=== PATIENT | male | born 1945 | race Caucasian/White ===

== ENCOUNTER 2020-12-28 08:55 | Inpatient (IN) | payer MEDICARE, SELFPAY ==
[2020-12-28] VITALS (12 sets, daily range): BP systolic 129–154; BP diastolic 68–92; PULSE 73–99; RESP 15–22; TEMP 36.3–36.6; O2SAT 93–100; BMI 39.2
--- NOTE | ~2020-12-28 | US_ITS ---
EXAMINATION: US joint non vasc ltd LT DATE: 12/28/2020 11:35 INDICATION: Left lower limb focal swelling. TECHNIQUE: Multiple grayscale and Doppler ultrasound images of the left lower limb were obtained. COMPARISON: Left ankle radiograph 12/28/2020 FINDINGS: There is no visible left ankle joint effusion. IMPRESSION: 1. No visible left ankle joint effusion. Reviewed, dictated and finalized at location A.
--- NOTE | ~2020-12-28 | US_ITS ---
EXAMINATION: US venous doppler [facility] EXAM DATE: 12/28/2020 11:35 INDICATION: Left lower extremity edema, erythema. TECHNIQUE: Multiple grayscale, color flow and Doppler images of the left lower extremity deep venous system were obtained and reviewed. There is no prior study for comparison. FINDINGS: The left common femoral, femoral and profunda veins demonstrate normal color flow, respirat ory variation, augmentation and compressibility. Compressibility, color flow confirmed within the le ft popliteal, posterior tibial, peroneal, and greater saphenous veins. IMPRESSION: No left lower extremity deep venous thrombosis. Reviewed, dictated and finalized at location A.
--- NOTE | ~2020-12-28 | XR_ITS ---
EXAMINATION: XR ankle LT min 3V DATE: 12/28/2020 09:59 INDICATION: Left ankle pain and swelling TECHNIQUE: Anteroposterior, lateral, mortise, and additional oblique view of the ankle were obtained. COMPARISON: None. FINDINGS: There is soft tissue swelling of ankle. Heterotopic ossification near the medial malleolus likely represents old fracture. No acute fracture is identified. Bone alignment is normal. Calcified atherosclerosis is noted. There are dorsal and plantar enthesophytes. IMPRESSION: 1. Soft tissue swelling without acute osseous abnormality. Reviewed, dictated and finalized at location B.
--- NOTE | ~2020-12-28 | MR_ITS ---
EXAMINATION: MR ankle LT wo con DATE: 12/29/2020 12:16 INDICATION: Left ankle edema and erythema. TECHNIQUE: Magnetic resonance imaging (MRI) of the left ankle was performed without intravenous contr ast. Sequences included sagittal PD-weighted FS FSE, sagittal PD-weighted FSE, coronal PD-weighted FS FSE, coronal PD-weighted FSE, axial PD-weighted FS FSE, and axial PD-weighted FSE. COMPARISON: Left ankle radiographs 12/28/2020 FINDINGS: Medial ankle ligaments: There are changes of prior sprain of superficial component of the deltoid ligament characterized by t hickening and increased signal intensity. The deep component of the deltoid ligament is intact. There is heterotopic ossification at the deltoid ligament. Lateral ankle ligaments: There are changes of prior sprains of anterior talofibular ligament and anterior tibiofibular ligamen t characterized by thickening and increased signal intensity and posterior tibiofibular ligament amberly acterized by some disorganized fibers with increased signal. Calcaneofibular ligament and posterior t alofibular ligament are intact. Tendons: The medial ankle tendons are normal. There is mild tendinopathy of the tibialis posterior and tibiali s anterior. There is mild tendinopathy of peroneus longus. There is mild Achilles tendinopathy. There is an enthesophyte at the calcaneal attachment of Achilles tendon. Plantar fascia:There is thickening and increased signal involving the central and lateral bands of pl west fascia, consistent with fasciitis. There is an enthesophyte at the calcaneal attachment. Bones/other: Bone alignment is normal. No fracture. There is mild osteoarthritis of many of the midfoot joints. Th ere is mild tibiotalar joint chondrosis. Fluid: There is small ankle and subtalar joint effusions. There is a small talonavicular joint effusion. The re is widespread edema of the soft tissues. There is mild fatty atrophy of many of the muscle bellies . There is widespread increased PD-weighted signal intensity in the muscle bellies, likely subacute d enervation. IMPRESSION: 1. Mild polyarticular osteoarthritis. 2. Plantar fasciitis. 3. Mild tendinopathy of multiple tendons. 4. Small effusions of the ankle joint, subtalar joint, and talonavicular joint. Reviewed, dictated and finalized at location A.
--- NOTE | ~2020-12-28 | XR_ITS ---
EXAMINATION: XR foot LT min 3V DATE: 12/29/2020 15:18 INDICATION: Left foot pain. TECHNIQUE: 4 views of left foot were obtained. COMPARISON: None. FINDINGS: Bone alignment is normal. No fracture. There is mild osteoarthritis of first metatarsophala ngeal joint and some of the interphalangeal joints and midfoot joints. There is moderate osteoarthrit is of second distal interphalangeal joint. There are enthesophytes at the posterior and plantar aspec ts of calcaneal tuberosity. IMPRESSION: 1. Polyarticular osteoarthritis. Reviewed, dictated and finalized at location A.
--- NOTE | 2020-12-28 09:30 | ED.EXTPRO ---
HPI - Extremity Problem General Chief complaint: Extremity Problem,Nontraumatic <TREV Raygoza Last Filed: 12/28/20 12:09> Stated complaint: L ankle pain <TREV Raygoza Last Filed: 12/28/20 12:09> Time Seen by Provider: 12/28/20 09:09 <TREV Raygoza Last Filed: 12/28/20 12:09> Source: patient <TREV Raygoza Last Filed: 12/28/20 12:09> Mode of arrival: wheelchair <TREV Raygoza Last Filed: 12/28/20 12:09> Limitations: no limitations <TREV Raygoza Last Filed: 12/28/20 12:09> History of Present Illness HPI Narrative: This is a 75 old male that presents the emergency department for left ankle redness and swelling x2 days. No known injury or trauma. Reports pain especially with ambulating. Denies fever, decreased range of motion, or numbness. <TREV Raygoza Last Filed: 12/28/20 12:09> Related Data Home medications: Home Medications Medication Instructions Recorded Confirmed insulin needles (disposable) 30 X #1 09/22/20 09/22/20 3/4 rivaroxaban 20 mg tablet 20 mg PO QPM tablet 09/22/20 12/28/20 insulin detemir U-100 100 unit/mL See Rx Instructions .ROUTE .COMPLEX 09/29/20 12/28/20 (3 mL) subcutaneous pen <TREV Raygoza Last Filed: 12/28/20 12:09> Allergies/Adverse reactions: Allergies Allergy/AdvReac Type Severity Reaction Status Date / Time venom-honey bee Allergy Intermediate Swelling Verified 12/28/20 13:50 <TREV Raygoza Last Filed: 12/28/20 12:09> Review of Systems Review of Systems: Narrative: CONSTITUTIONAL: Denies fever SKIN: Reports redness MUSCULOSKELETAL: Reports joint pain, and myalgia. NEUROLOGIC: Denies numbness <TREV Raygoza Last Filed: 12/28/20 12:09> All systems reviewed & are unremarkable except as noted in HPI and below <Serina Klein PA-C - Last Filed: 12/28/20 12:09> PMFSH Past Medical History Medical History: Medical History (Updated 12/28/20 @ 15:13 by Isabel Vang PA-C) Cataracts, bilateral Chronic anticoagulation Patient takes rivaroxaban for stroke prophylaxis given persistent atrial fibrillation. Diabetic peripheral neuropathy Essential hypertension Hernia (~1989) Hyperlipidemia Insulin dependent type 2 diabetes mellitus Hemoglobin A1c was 7.7% on 12/28/2020. Kidney stone (~1976) Persistent atrial fibrillation Psoriasis <Serina Klein PA-C - Last Filed: 12/28/20 12:09> Surgical History Surgical History: Surgical History (Updated 12/28/20 @ 15:13 by Isabel Vang PA-C) H/O eye surgery (~2016) History of loop recorder <Serina Klein PA-C - Last Filed: 12/28/20 12:09> Family History Family History: Family History (Updated 12/28/20 @ 14:14 by Celi Pereira RN) Father , 70 -- Diabetes cause of Diabetes mellitus Mother , 35 -- hemmorage Brain bleed <Serina Klein PA-C - Last Filed: 12/28/20 12:09> Social History Social History: Social History Social History: Surrogate decision maker: Olivia Jewell, spouse. Code status: Full code. Smoking status: Never smoker Alcohol intake: never Substance use: never Substance use type: does not use Additional living arrangements comments: The patient lives in [place] with his . Additional occupation/education comments: Retired. Gender identity (if verbalized by the patient): Male Spiritual care concerns: No <Serina Klein PA-C - Last Filed: 12/28/20 12:09> Exam Narrative: Exam Narrative: GENERAL: Well-appearing, well-nourished, and in no acute distress. HEAD: Normocephalic, atraumatic. EYES: EOMI. EXTREMITIES: Normal range of motion. Mild to moderate edema about the left ankle with overlying redness. Normal DP pulses, normal sensation SKIN: Warm, dry, no rash. NEURO: No focal defici
[2020-12-28 09:51] LABS: Basophils Percent Auto 0.3 % (0.2-1.2); Eosinophils Absolute Auto 0.1 K/mm3 (0-0.3); Eosinophils Percent Auto 0.5 % (0-4.4); Hematocrit 41.8 % (42.0-52.0); Hemoglobin 14.4 g/dL (14.0-18.0); Immature Granulocyte Absolute 0.05 K/mm3 (0.00-0.031); Immature Granulocyte Percent A 0.4 % (0-0.5); Lymphocytes Absolute Auto 2.28 K/mm3 (0.9-3.2); Mean Corpuscular HGB Conc 34.4 g/dl (32-36); Mean Corpuscular Hemoglobin 31.6 pg (26-34); Mean Corpuscular Volume 91.9 fl (80-100); Mean Platelet Volume 9.9 fl (7.4-10.4); Monocytes Absolute Auto 1.1 K/mm3 (0.1-0.6); Monocytes Percent Auto 9.2 % (2.6-8.5); Neutrophils Absolute Auto 8.5 K/mm3 (1.3-6.7); Neutrophils Percent Auto 70.6 % (45.5-73.1); Platelet Count Result 242 k/mm3 (150-375); Red Blood Count 4.55 M/mm3 (4.6-6.20); Red Cell Distribution Width 13.9 % (11.5-14.5)
[2020-12-28 10:04] LABS: Anion Gap 8 mmol/L (8-16); Blood Urea Nitrogen 15 mg/dL (9-20); CRP 7.6 mg/dL (<1.0); Calcium 9.8 mg/dL (8.4-10.2); Carbon Dioxide 29 mmol/L (22-30); Chloride 98 mmol/L (98-107); Estimated CRCL calculation 72 ml/min; Estimated Glomerular Filt Rate > 60; Glucose 160 mg/dL (75-110); Potassium 3.6 mmol/L (3.4-5.0); Sodium 135 mmol/L (137-145); Uric Acid 5.1 mg/dL (3.5-8.5)
[2020-12-28 10:27] LABS: Hemoglobin A1C 7.7 % (<5.7)
[2020-12-28 11:14] LABS: Erythrocyte Sedimentation Rate 40 mm/hr (0-20)
--- NOTE | 2020-12-28 12:27 | PC.NURSE ---
Lab notified @1200 for add-on PT INR PTT
[2020-12-28 12:55] LABS: INR 1.5; Prothrombin Time 18.8 Seconds (11.1-14.7)
[2020-12-28 12:56] LABS: Partial Thromboplastin Time 40.7 SECONDS (22.3-36.8)
--- NOTE | 2020-12-28 13:40 | ADMGEN ---
This patient, Damir Jewell, was admitted to Medical Room 344-01. Patient/family oriented to hospital policies and general routines including ID bracelet, bed and alarms, visiting hours, pain management, procedures, bathroom and other care routines, personal items, smoking policy, room service/diet, and visiting hours. Information on how to activate the Rapid Response Team has been discussed. Patient/Family are encouraged to report perceived risks to care and to ask questions if they do not understand what they are told or what they should do.
[2020-12-28 14:31] LABS: Glucose Point of Care 179 (65-105)
--- NOTE | 2020-12-28 15:10 | PM.IMHP ---
H&P: HPI History of Present Illness Date/Time: 12/28/20 15:10 Chief Complaint: Left ankle pain and swelling. Narrative: This is a 75-year-old male with insulin-dependent diabetes, hypertension, dyslipidemia, persistent atrial fibrillation on long-term anticoagulation, and psoriasis who presented to the emergency department earlier today via private vehicle from home for evaluation of left ankle pain and swelling for the past 2 days. Friday morning he awoke with mild discomfort in his left ankle. As the day progressed he noticed swelling and redness about the ankle with occasional sharp shooting pain. Since that time the swelling, redness, and pain have continued to worsen to the point where he could not bear weight on that foot today due to severe shooting pain. He does have scattered psoriatic plaques on that left leg but none at the site in question. He denies fall and injury to the ankle. No open wounds. The pain is not necessarily worse with movement of the ankle joint. To his knowledge he has never had issues with psoriatic arthritis in that ankle. No history of gout or multidrug resistant organisms. Review of Systems Review of Systems: Narrative: Twelve systems were reviewed with pertinent positives and negatives as per HPI. He denies fever, chills, and sweats. No cold or flu symptoms. No known exposure to those positive for COVID-19. He denies chest pain shortness of breath. No nausea or vomiting. No history of venous thromboembolism. He denies blurry vision, polydipsia, and polyuria. His random glucose typically runs around 170. Hemoglobin A1c today was 7.7% this correlates. Except as documented, all other systems for reviewed and are negative. [facility] Past Medical History Medical History (Updated 12/28/20 @ 21:07 by Isabel Vang PA-C) Chronic anticoagulation Patient takes rivaroxaban for stroke prophylaxis given persistent atrial fibrillation. Diabetic peripheral neuropathy Essential hypertension Hernia (~1989) Hyperlipidemia Insulin dependent type 2 diabetes mellitus Hemoglobin A1c was 7.7% on 12/28/2020. Kidney stone (~1976) Moderate aortic valve stenosis Nonrheumatic moderate aortic stenosis noted on echocardiogram on 11/28/2020 with a valve area of 1.08 cm2. Moderate pulmonary hypertension Estimated peak RVSP 48 mmHg on echo on 11/28/2020. Persistent atrial fibrillation Psoriasis Surgical History Surgical History (Updated 12/28/20 @ 21:08 by Isabel Vang PA-C) History of bilateral cataract extraction History of eye surgery Retinal surgery due to wrinkling. History of loop recorder History of surgery on arm Left upper extremity tendon repair. History of ventral hernia repair Family History Family History Father , 70 -- Diabetes cause of Diabetes mellitus Mother , 35 -- hemmorage Brain bleed Social History Social History (Updated 12/28/20 @ 21:08 by Isabel Vang PA-C) Social History: Surrogate decision maker: Olivia Jewell, spouse. Code status: Full code. Smoking status: Never smoker Alcohol intake: never Substance use: never Substance use type: does not use Additional living arrangements comments: The patient lives in [place] with his . Additional occupation/education comments: Retired. Worked in construction and [employer]. Gender identity (if verbalized by the patient): Male Spiritual care concerns: No Meds Home Medications and Allergies Home Medications Medication Instructions Recorded Confirmed Type apremilast 30 mg tablet 30 mg PO QAM AND QPM #180 tablet 09/22/20 12/28/20 Rx glipizide 5 mg tablet 10 mg PO BID #180 tablet 09/22/20 12/28/20 Rx indapamide 2.5 mg tablet 2.5 mg PO QAM #90 tablet 09/22/20 12/28/20 Rx insulin needles (disposable) 30 X #1 09/22/20 12/28/20 History 3/4 losartan 100 mg tablet 100 mg PO QAM #90 tablet
[2020-12-28 16:31] LABS: Uric Acid 5.3 mg/dL (3.5-8.5)
[2020-12-28] MEDS: glipiZIDE 5 MG TABLET 10 MG PO (17:36)
[2020-12-28] MEDS: RIVAROXABAN 20 MG TABLET PO (17:38)
[2020-12-28] MEDS: PRAVASTATIN SODIUM 20 MG TABLET 40 MG PO (17:38)
[2020-12-28] MEDS: VERAPAMIL HCL ER 240 MG TABLET.ER PO (17:38)
--- NOTE | 2020-12-28 21:50 | PHAR ---
PHARMACY VERIFIED HOME MEDS: JARDIANCE 10 MG TABLET *USE FROM HOME* GIVE 1 TABLET BY MOUTH EVERY MORNING OTEZLA 30 MG TABLET *TAKE FROM HOME* GIVE 1 TABLET BY MOUTH TWICE DAILY INSULIN DETEMIR U-100 (LEVEMIR FLEXTOUCH) *USE FROM HOME* INJECT 96 UNITS UNDER THE SKIN AT BEDTIME
[2020-12-28 22:11] LABS: Glucose Point of Care 229 (65-105)
[2020-12-28] MEDS: OTEZLA 30 MG TABLET 1 EACH PO (22:15)
[2020-12-29 05:01] VITALS: BP 130/53; PULSE 69; RESP 16; TEMP 36.7; O2SAT 99
[2020-12-29] MEDS: glipiZIDE 5 MG TABLET 10 MG PO ×2 (05:49→15:45)
[2020-12-29 05:56] LABS: Hematocrit 37.9 % (42.0-52.0); Mean Corpuscular HGB Conc 34.3 g/dl (32-36); Mean Corpuscular Hemoglobin 30.9 pg (26-34); Platelet Count Result 240 k/mm3 (150-375); Red Blood Count 4.21 M/mm3 (4.6-6.20); Red Cell Distribution Width 13.4 % (11.5-14.5); White Blood Count 12.8 K/mm3 (4.5-10.0)
[2020-12-29 06:10] LABS: Alanine Aminotransferase 20 U/L (4-50); Albumin Level 3.8 g/dL (3.5-5.1); Alkaline Phosphatase 70 U/L (38-126); Anion Gap 6 mmol/L (8-16); Aspartate Amino Transferase 23 U/L (17-59); Bilirubin,Total 0.7 mg/dL (0.2-1.3); Blood Urea Nitrogen 14 mg/dL (9-20); CRP 8.1 mg/dL (<1.0); Calcium 9.3 mg/dL (8.4-10.2); Carbon Dioxide 30 mmol/L (22-30); Chloride 99 mmol/L (98-107); Estimated CRCL calculation 74 ml/min; Estimated Glomerular Filt Rate > 60; Glucose 147 mg/dL (75-110); Magnesium 1.8 mg/dL (1.6-2.3); Potassium 3.4 mmol/L (3.4-5.0); Sodium 135 mmol/L (137-145)
[2020-12-29 07:21] LABS: Glucose Point of Care 128 (65-105)
[2020-12-29] MEDS: OTEZLA 30 MG TABLET 1 EACH PO ×2 (09:52→17:21)
[2020-12-29] MEDS: LOSARTAN POTASSIUM 100 MG TABLET PO (09:53)
[2020-12-29] MEDS: INDAPAMIDE 2.5 MG TABLET PO (09:53)
--- NOTE | 2020-12-29 10:15 | PCNSR ---
On 12/29/20, the student, Nishi Salgado, provided care and completed [facility] documentation on this patient. I have reviewed the student's documentation and agree with the findings.
[2020-12-29] MEDS: POTASSIUM CHLORIDE 20 MEQ TABLET PO (10:52)
[2020-12-29 12:32] LABS: Glucose Point of Care 159 (65-105)
--- NOTE | 2020-12-29 13:19 | PM.IMPN ---
Progress Note: A&P Assessment and Plan (1) Cellulitis of left ankle: Code(s): L03.116 - Cellulitis of left lower limb Status: Acute Assessment and Plan: Continue imipenem and vancomycin -MRI does not show a fracture but does show small effusion of the ankle joint -will order PT OT -DDx: Gout, uric acid 5.3 but improving with current treatment so probably less likely -hopefully discharge in 1-2 days if patient continues to improve (2) Insulin dependent type 2 diabetes mellitus: Code(s): E11.9 - Type 2 diabetes mellitus without complications; Z79.4 - [facility] (current) use of insulin Status: Chronic Assessment and Plan: Last glucose 159 -Hemoglobin A1c was 7.7 -Continue basal insulin. -Continue sliding scale insulin, Accu-Cheks, and hypoglycemic protocol. (3) Essential hypertension: Code(s): I10 - Essential (primary) hypertension Status: Chronic Assessment and Plan: bp 130/53 -Continue losartan, lozol and verapamil (4) Persistent atrial fibrillation: Code(s): I48.19 - Other persistent atrial fibrillation Status: Chronic Assessment and Plan: Chronic and rate controlled -Continue verapamil for rate control. -Continue rivaroxaban for stroke prophylaxis. (5) Psoriasis: Code(s): L40.9 - Psoriasis, unspecified Status: Chronic Assessment and Plan: Patient has scattered plaques on the extremities, which he states is per his baseline. -Continue Otezla b.i.d. I do not think there is any indication to hold this medication at this time -no evidence of significant psoriatic arthritis on MRI to be causing this amount of pain at this time Time Spent With Patient Time with patient: 25 - 35 minutes Subjective Date/time seen: 12/29/20 13:19 Interval history: Pt is a 75-year-old male here for left ankle pain presume cellulitis. Patient was seen today and states the pain is better than it was yesterday. He is able to put weight on it today whereas yesterday he was not able to do so. He thinks the erythema and swelling is better although he cannot really tell me what looked like prior to admission. He denies chest pain, nausea, vomiting, shortness of breath, fevers, chills, or abdominal pain. He states he has a history of a heart murmur and sees Dr. Childs for this and had an echo recently. No history of gout. Review of Systems Review of Systems: All systems reviewed & are unremarkable except as noted in HPI and below Exam Narrative: Exam Narrative: General: Well developed well nourished patient in NAD eating lunch HEENT: normocephalic Neck: supple Neuro: Alert and oriented x4 CV: Irregularly irregular with a loud 3/6 systolic murmur Resp:CTA Abd: Soft, non distended. No pain to palpation. Positive bowel sounds Extremities: Left ankle/foot with mild swelling and erythema. Patient able to move in all directions. Right leg within normal limits with no swelling. Pulses and sensation intact. Objective Data Vital Signs Vital Signs: Vital Signs - 24 hr 12/28/20 14:00 12/28/20 20:44 12/29/20 05:01 Temperature 97.3 F L 97.8 F 98.1 F Pulse Rate 84 99 69 Respiratory Rate 16 18 16 Blood Pressure 147/73 H 154/81 H 130/53 L Pulse Oximetry 100 96 99 Intake/Output Intake/Output: Intake & Output 12/26/20 12/27/20 12/28/20 12/29/20 23:59 23:59 23:59 23:59 Intake Total 1620 1440 Output Total 900 950 Balance 720 490 Meds/Results Medications: Active Medications Generic Name Dose Route Start Last Admin Trade Name Freq PRN Reason Stop Dose Admin Dextrose 12.5 gm 12/28/20 15:22 Dextrose 50% 25 Gm/50 Ml Syringe IV PUSH PRN PRN Hypoglycemia Protocol Glipizide 10 mg 12/28/20 16:30 12/29/20 05:49 Glipizide 5 Mg Tablet PO 10 mg BIDAC JUNIE Administration Glucagon 1 mg 12/28/20 15:22 Glucagon For Inj 1 Mg Vial IM PRN PRN Hypoglycemia Protocol G
[2020-12-29 14:00] VITALS: BP 148/76; PULSE 90; RESP 16; TEMP 36.3; O2SAT 98
--- NOTE | 2020-12-29 14:43 | PM.CNOR ---
Assessment and Plan Additional Plan Patient is a 75-year-old male who was admitted through emergency room yesterday afternoon with pain and swelling and redness lateral greater than medial left ankle and difficulty bearing weight. His C reactive protein was moderately elevated at 7 his sedimentation rate moderately elevated the 40 [place] [id number]. His greatest tenderness was over the lateral aspect of the ankle knee could not tolerate bearing weight on it as it had become so painful. His symptoms gradually developed over the 2 days prior to his admission. X-rays of the ankle were fairly unremarkable. He does have some vascular calcifications. Does have diabetes. His hemoglobin A1c was 7.7. His obesity his BMI is 39. He has a history of psoriatic arthritis and psoriasis. He takes a andrez which has helped reduce his plaque psoriasis over his elbows and knees although he still has psoriatic plaques there. He has had problems with arthritis symptoms from his knees down over the years. He has had pain in his ankle before. For some time he has complained of sensation like he is stepping on rocks when he 1st steps down onto his bare feet after night of sleep and then improves. He denies any numbness or history of neuropathy or tingling in his feet at night. He denies any history of gout. His uric acid was 5.3. The emergency room he had an ultrasound of the ankle to rule out fluid collection that could be aspirated before starting antibiotics and no fluid collection was notable to soft tissue swelling around the ankle. He did have a venous duplex ultrasound emergency room which was negative for DVT. On examination today he has palpable dorsalis pedis pulse he has normal light touch sensation and normal proprioception the great toe left foot. He had no tenderness over the medial malleolus bone or the lateral malleolus bone he did have moderate tenderness over the anterolateral ankle joint itself and moderately severe tenderness over the dorsum of the 1st metatarsal and distal shaft and the 2nd metatarsal distal shaft. He had mild discomfort with inversion eversion no discomfort with ankle plantar flexion but moderate pain with dorsiflexion the ankle actively. The metatarsal phalangeal joints themselves were not particularly tender. He had faint erythema over the dorsum of the forefoot and midfoot and mild edema in this area with mild edema over the anterolateral ankle as well. His calf was nontender. He was placed on imipenem and vancomycin empirically for cellulitis in a diabetic. Dr. kincaid has just seen him and feels that this is probably not infectious and feels we can discontinue the antibiotics at this time. he had an MRI scan of his left ankle today which showed very small effusions in the a low tibial and subtalar joints and no bone signal abnormalities to suggest stress reaction or occult fracture in the ankle and hindfoot. There was suggestion of mild tenosynovitis. No suggestion of a specific fluid collection that could be aspirated or evidence of osteomyelitis or infection. Impression differential diagnosis would include exacerbation of psoriatic arthritis involving left foot and ankle and also Charcot neuropathic fracture or stress reaction in the forefoot and midfoot. Stress reaction and fracture at the level of the ankle and hindfoot has been completely ruled out by the MRI scan. He does not have ascertained oval symptoms or signs to suggest that he has an underlying neuropathy but Charcot joint is a very prevalent cause of presentation with pain swelling erythema in a diabetic who presents to the emergency room with no open skin sore. We will obtain x-rays of his foot and obtain a postop shoe for him and we will order a Medrol Dosepak and see if this helps alleviate his symptoms. This may elevate his blood sugars for a few days but I think the benefit of alleviating his symptoms if this is inflammatory arthriti
--- NOTE | 2020-12-29 15:07 | WPDINFPN2 ---
Progress Note: A&P Assessment and Plan (1) Arthritis: Code(s): M19.90 - Unspecified osteoarthritis, unspecified site Status: Acute Assessment and Plan: 1. Arthritis of left ankle with pain in mid foot also. He has no cellulitis on exam, and I doubt polyarticular joint infection 2. Psoriasis, on no immune suppressants 3. DM REC No empiric antibiotics. Ok with me for steroids if desired. Due to potential complications, I would not attempt arthrocentesis unless new adverse developments. Subjective Date/time seen: 12/29/20 15:07 Objective Data Vital Signs Vital Signs: Vital Signs - 24 hr 12/28/20 20:44 12/29/20 05:01 12/29/20 14:00 Temperature 36.6 C 36.7 C 36.3 C L Pulse Rate 99 69 90 Respiratory Rate 18 16 16 Blood Pressure 154/81 H 130/53 L 148/76 H Pulse Oximetry 96 99 98 Intake/Output Intake/Output: Intake & Output 12/26/20 12/27/20 12/28/20 12/29/20 23:59 23:59 23:59 23:59 Intake Total 1620 1440 Output Total 900 950 Balance 720 490 Meds/Results Medications: Active Medications Generic Name Dose Route Start Last Admin Trade Name Freq PRN Reason Stop Dose Admin Dextrose 12.5 gm 12/28/20 15:22 Dextrose 50% 25 Gm/50 Ml Syringe IV PUSH PRN PRN Hypoglycemia Protocol Glipizide 10 mg 12/28/20 16:30 12/29/20 05:49 Glipizide 5 Mg Tablet PO 10 mg BIDAC JUNIE Administration Glucagon 1 mg 12/28/20 15:22 Glucagon For Inj 1 Mg Vial IM PRN PRN Hypoglycemia Protocol Glucose 15 gm 12/28/20 15:22 Glucose Oral Gel 15 Gm Of Glucse In 37.5 Gm Tube PO PRN PRN Hypoglycemia Protocol Dextrose 1,000 mls @ 100 mls/hr 12/28/20 15:22 Dextrose 5% 1,000 Ml IVPB PRN PRN Hypoglycemia Protocol Indapamide 2.5 mg 12/29/20 09:00 12/29/20 09:53 Indapamide 2.5 Mg Tablet PO 2.5 mg QAM JUNIE Administration Insulin Aspart 4 - 8 units 12/28/20 17:00 12/29/20 12:30 Insulin Aspart (*Bkc) 100 Units/Ml SUB-Q Not Given [facility] Protocol Insulin Human Regular 96 each 12/28/20 21:50 12/28/20 22:15 Insulin Detemir U-100 [Levemir Flextouch U-100 Insuln] 100 Unit/Ml SUB-Q 96 each HS JUNIE Administration Losartan Potassium 100 mg 12/29/20 09:00 12/29/20 09:53 Losartan Potassium 100 Mg Tablet PO 100 mg QAM JUNIE Administration Methylprednisolone 4 mg 12/29/20 06:30 Methylprednisolone (Medrol) Dosepack 4 Mg Tablets PO 01/03/21 07:29 1200,1700 JUNIE Taper Pravastatin Sodium 40 mg 12/28/20 18:00 12/28/20 17:38 Pravastatin Sodium 20 Mg Tablet PO 40 mg QPM JUNIE Administration Rivaroxaban 20 mg 12/28/20 18:00 12/28/20 17:38 Rivaroxaban 20 Mg Tablet PO 20 mg DAILY@1700 JUNIE Administration Verapamil HCl 240 mg 12/28/20 18:00 12/28/20 17:38 Verapamil Hcl Er 240 Mg Tablet.Er PO 240 mg QPM JUNIE Administration Radiology Results: ITS Impressions Ankle X-Ray 12/28/20 10:04 IMPRESSION: 1. Soft tissue swelling without acute osseous abnormality. Venous Doppler Study 12/28/20 11:37 IMPRESSION: No left lower extremity deep venous thrombosis. Extremity Ultrasound 12/28/20 11:38 IMPRESSION: 1. No visible left ankle joint effusion. Ankle MRI 12/29/20 12:35 IMPRESSION: 1. Mild polyarticular osteoarthritis. 2. Plantar fasciitis. 3. Mild tendinopathy of multiple tendons. 4. Small effusions of the ankle joint, subtalar joint, and talonavicular joint. Labs Labs: Laboratory Results - last 24 hr 12/28/20 12/28/20 12/29/20 15:57 22:04 05:44 WBC 12.8 H RBC 4.21 L Hgb 13.0 L Hct 37.9 L MCV 90.0 MCH 30.9 MCHC 34.3 RDW 13.4 Plt Count 240 MPV 10.0 Sodium Potassium Chloride Carbon Dioxide Anion Gap BUN Creatinine Estim Creat Clear Calc Estimated GFR Glucose POC Capillary Glucose 229 H Uric Acid 5.3 Calcium Magnesium Total Bilirubin
[2020-12-29] MEDS: methylPREDNISolone (MEDROL) DOSEPACK 4 MG TABLETS PO ×4 (15:44→21:17)
[2020-12-29 16:58] LABS: Glucose Point of Care 195 (65-105)
[2020-12-29] MEDS: PRAVASTATIN SODIUM 20 MG TABLET 40 MG PO (17:22)
[2020-12-29] MEDS: RIVAROXABAN 20 MG TABLET PO (17:22)
[2020-12-29] MEDS: VERAPAMIL HCL ER 240 MG TABLET.ER PO (17:23)
[2020-12-29 20:08] VITALS: BP 133/55; PULSE 81; RESP 16; TEMP 36.5; O2SAT 95
--- NOTE | 2020-12-29 20:44 | CONS_ITS ---
DATE OF CONSULTATION: 12/29/2020 REASON FOR CONSULTATION: Left ankle arthritis. HISTORY OF PRESENT ILLNESS: A 75-year-old male with longstanding psoriasis. He is on Otezla for about 2 years, but has not been on biologics due to his concern over immunosuppression. The Otezla seems to help his skin lesions modestly; however, he also has had problems with arthritis in the knees, ankles, and more distally and the Otezla does not seem to help that. He has been on no antibiotics in the last 6 weeks for any reason and no systemic steroids in the last 3 months for any reason. He has had some chills, but no rigors, fevers, or night sweats in recent weeks. He presented to the hospital yesterday with worsened pain in the left lower extremity. He has been given antibiotics while here and consultation requested. I was not notified until about an hour ago. The patient notes worsening of his pain with weightbearing, is located over the left medial and lateral malleolus, also over the metatarsal head area and also on the distal sole of the foot. Redness was also noted by the patient along with edema. He has had no skin trauma, known vascular compromise, previous major trauma and no prior surgeries. ALLERGIES: NONE PERTINENT. HABITS: Quit smoking 50 years ago and no alcohol. PRESENT MEDICATIONS: List reviewed. No immunosuppressants. PAST MEDICAL HISTORY: In addition to the above, diabetes mellitus, A1c 7.7%, ventral hernia repair, loop recorder, eye surgery, cataract extractions, PAF, pulmonary hypertension, aortic valve stenosis 1.08 square cm, distant past kidney stone, hyperlipidemia, hernia repair, hypertension, and peripheral neuropathy and is on chronic anticoagulation. REVIEW OF SYSTEMS: 14-point review otherwise negative. SOCIAL HISTORY: No family at the bedside. He is , retired from construction and carpentry work. Lives locally. FAMILY HISTORY: Not pertinent to his present illness. PHYSICAL EXAMINATION: GENERAL: This is an elderly male who appears actual age. No acute distress. VITAL SIGNS: Afebrile since arrival, 148/76, 90, 16, 98% room air. SKIN: Warm and dry. No generalized rash. He has typical psoriasis plaques over his knees and elbows. NODES: He has no cervical adenopathy. EENT: Pupils equal, round, and reactive to light. The oropharynx, oral mucosa normal. NECK: No masses, thyromegaly, or meningismus. LUNGS: Clear to auscultation. CARDIAC: Regular rate and rhythm. No murmur or gallop. ABDOMEN: Obese, nontender. No masses. No organomegaly. EXTREMITIES: He has 1+ edema of the distal left leg and foot, which is now pitting. He has patchy mild erythema over the dorsum of the foot as well as around the ankle. There is tenderness in various parts of the metatarsal heads. He has minimal warmth. No areas of sinus tracts or gangrene. RADIOLOGY: MRI of the left ankle showed small effusions at the ankle, subtalar joint, and talonavicular joint, some tendinopathy, plantar fasciitis, and osteoarthritis. Ultrasound of the left ankle showed no effusions. Venous Doppler normal, and plain films of the ankle, soft tissue swelling. LABS: White count 12.8 similar to yesterday, hemoglobin 13, which is down 1 point, platelets 240. Earlier differential is normal. He has hyponatremia. Glucose 147. CRP 8.1, otherwise chemistry panel is normal. Blood cultures performed a day ago are no growth so far. ASSESSMENT: 1. Left ankle pain, swelling, and redness, I think is due to noninfectious arthritis. Psoriasis is in the differential as is gout, other crystalline arthropathies, or degenerative joint disease. He has no portal of entry that might predispose toward cellulitis or septic arthritis. I doubt hematogenous spread from a distant site.
[2020-12-29 21:23] LABS: Glucose Point of Care 273 (65-105)
[2020-12-30 06:11] LABS: Hematocrit 40.4 % (42.0-52.0); Hemoglobin 13.8 g/dL (14.0-18.0); Mean Corpuscular HGB Conc 34.2 g/dl (32-36); Mean Corpuscular Hemoglobin 31.6 pg (26-34); Mean Corpuscular Volume 92.4 fl (80-100); Mean Platelet Volume 10.4 fl (7.4-10.4); Platelet Count Result 261 k/mm3 (150-375); Red Blood Count 4.37 M/mm3 (4.6-6.20); Red Cell Distribution Width 13.6 % (11.5-14.5); White Blood Count 12.2 K/mm3 (4.5-10.0)
[2020-12-30 06:24] LABS: Anion Gap 8 mmol/L (8-16); Blood Urea Nitrogen 20 mg/dL (9-20); CRP 7.8 mg/dL (<1.0); Calcium 9.8 mg/dL (8.4-10.2); Carbon Dioxide 32 mmol/L (22-30); Chloride 98 mmol/L (98-107); Estimated CRCL calculation 74 ml/min; Estimated Glomerular Filt Rate > 60; Glucose 179 mg/dL (75-110); Potassium 3.8 mmol/L (3.4-5.0); Sodium 138 mmol/L (137-145)
[2020-12-30 06:28] VITALS: BP 138/70; PULSE 69; RESP 12; TEMP 36.1; O2SAT 100
[2020-12-30] MEDS: methylPREDNISolone (MEDROL) DOSEPACK 4 MG TABLETS PO ×2 (06:43→13:11)
[2020-12-30] MEDS: glipiZIDE 5 MG TABLET 10 MG PO (06:44)
[2020-12-30 08:00] VITALS: PULSE 69; RESP 12; O2SAT 97
[2020-12-30 08:25] LABS: Glucose Point of Care 159 (65-105)
[2020-12-30] MEDS: OTEZLA 30 MG TABLET 1 EACH PO (08:45)
[2020-12-30] MEDS: LOSARTAN POTASSIUM 100 MG TABLET PO (08:45)
[2020-12-30] MEDS: INDAPAMIDE 2.5 MG TABLET PO (08:45)
[2020-12-30 09:24] VITALS: O2SAT 97
--- NOTE | 2020-12-30 11:09 | PM.DS ---
DS: Admitting Diagnosis Admitting Diagnosis Admitting Diagnosis: ankle pain DS: Discharge Diagnosis Discharge Diagnosis (1) Arthritis: Code(s): M19.90 - Unspecified osteoarthritis, unspecified site Status: Acute Assessment and Plan: Patient has had significant improvement in the swelling of his foot/ankle since admission -antibiotics were initially started for cellulitis but after seeing the orthopedist and Infectious Disease, it was thought that this was possibly an exacerbation to his psoriatic arthritis -they recommend Medrol Dosepak at discharge and close follow-up with primary care physician -day of discharge the patient was able to put weight on it and ambulate and was feeling much better (2) Insulin dependent type 2 diabetes mellitus: Code(s): E11.9 - Type 2 diabetes mellitus without complications; Z79.4 - nursing home (current) use of insulin Status: Chronic Assessment and Plan: Last glucose 252 -continue home metformin, glipizide, Jardiance, and Levemir -patient understands that the steroids will temporarily increase his glucose (3) Essential hypertension: Code(s): I10 - Essential (primary) hypertension Status: Chronic Assessment and Plan: bp 138/70 -Continue home losartan, lozol and verapamil (4) Persistent atrial fibrillation: Code(s): I48.19 - Other persistent atrial fibrillation Status: Chronic Assessment and Plan: Chronic and rate controlled -Continue verapamil for rate control. -Continue rivaroxaban for stroke prophylaxis. (5) Psoriasis: Code(s): L40.9 - Psoriasis, unspecified Status: Chronic Assessment and Plan: Patient has scattered plaques on the extremities, which he states is per his baseline. -Continue Otezla b.i.d. I do not think there is any indication to hold this medication at this time -no evidence of significant psoriatic arthritis on MRI to be causing this amount of pain at this time DS: Summary Hospital Course Hospital Course: Patient is a 75-year-old male who presented emergency room for left ankle swelling, pain and slight erythema. Patient's vitals in the ER were stable. White blood cell count was 12.0, hemoglobin 14.4, hematocrit 41.8, platelets 242. BMP within normal limits. CRP 7.6, uric acid 5.1. Ankle x-ray showed soft tissue swelling without abnormality, ultrasound of the leg showed no DVT, ultrasound of the joint showed no visible joint effusion. Patient was having problems ambulating so he was admitted to the hospitalist and started on antibiotics. He was seen by orthopedics and Infectious Disease who thought this was more arthritis and stop the antibiotics and started steroids. The patient underwent an MRI of the ankle due to excessive pain which revealed 1. Mild polyarticular osteoarthritis. 2. Plantar fasciitis. 3. Mild tendinopathy of multiple tendons. 4. Small effusions of the ankle joint, subtalar joint, and talonavicular joint. The day of discharge the patient was able to ambulate and the pain was much improved. There was no further erythema and very mild swelling. The patient was ready for discharge and is going to follow-up with his primary care physician. He was educated about the worrisome signs and symptoms come back to emergency room for and was discharged in stable condition. Status at Discharge Overall status at discharge: patient is progressing back to baseline Time Spent with Patient Time attestation: Total time spent providing and/or coordinating discharge services:34 min Exam Narrative: Exam Narrative: General: Well developed well nourished patient in NAD eating lunch HEENT: normocephalic Neck: supple Neuro: Alert and oriented x4 CV: Irregularly irregular with a loud 3/6 systolic murmur Resp:CTA Abd: Soft, non distended. No pain to palpation. Positive bowel sounds Extremities: Left ankle/foot with mild swelling and no erythema. Patient able to mo
[2020-12-30] MEDS: INSULIN ASPART (*BKC) 100 UNITS/ML SUB-Q (12:13)
[2020-12-30 12:34] LABS: Glucose Point of Care 252 (65-105)
== END 2020-12-30 13:50 | disposition home or self-care (01) | DRG 546 ==
LOC: ANHED 12:07 → ANH3MED 12:46
PROVIDERS: Physician Assistant; Admitting Provider Family Medicine; Emergency Provider General Practice; PCP Emergency Medicine; Visit Provider Physician Assistant
DX: L40.59 Other psoriatic arthropathy (principal); I48.19 Other persistent atrial fibrillation; L40.9 Psoriasis, unspecified; I10 Essential (primary) hypertension; E11.628 Type 2 diabetes mellitus with other skin complications; E11.42 Type 2 diabetes mellitus with diabetic polyneuropathy; E78.5 Hyperlipidemia, unspecified; I35.0 Nonrheumatic aortic (valve) stenosis; Z79.4 Long term (current) use of insulin; Z79.01 Long term (current) use of anticoagulants; Z98.42 Cataract extraction status, left eye; Z98.41 Cataract extraction status, right eye
CPT/HCPCS: 36415; 73610; 73630; 73721; 76882; 80048; 80053; 82948; 83036; 83735; 84550; 85025; 85027; 85610; 85652; 85730; 86140; 87040; 93971; 96365; 96366; 96367; 96375; 97161; 97165; 97530; 99285; A9270; G0378; J0743; J1815; J3370

== ENCOUNTER → 2021-02-17 01:27 | Outpatient (CLI) | payer MEDICARE, SELFPAY ==
[2021-02-17 19:37] LABS: SARS-CoV-2 RNA PCR Negative
== END ==
PROVIDERS: PCP Emergency Medicine; Visit Provider Internal Medicine Cardiovascular Disease
DX: Z01.812 Encounter for preprocedural laboratory examination (principal); Z20.822 Contact with and (suspected) exposure to COVID-19
CPT/HCPCS: C9803; U0003; U0005

== ENCOUNTER → 2021-02-21 00:18 | Day surgery (SDC) | payer MEDICARE, SELFPAY ==
[2021-02-20 15:48] VITALS: BMI 37.3
--- NOTE | 2021-02-21 12:15 | SUR.PREOP ---
ARRIVES TO [facility] 5 VIA FOR REVEAL LOOP EXPLANT W/ DR. ZAFAR. WALKS W/ CANE. DENIES PAIN OR SOB ON ARRIVAL. ORIENTED TO ROOM, PLAN OF CARE, PROCEDURE. PT. STATES HE DROVE HIMSELF TODAY. IV STARTED, VS OBTAINED, SKIN PREPPED, CONSENT SIGNED. STATES LAST DOSE OF XARELTO WAS ON WEDNESDAY, FEBRUARY 17, 2021. MONITOR AFIB. WILL CONTINUE TO MONITOR.
[2021-02-21 12:40] VITALS: BP 125/80; PULSE 94; RESP 16; TEMP 36.6; O2SAT 96
[2021-02-21 12:45] VITALS: BMI 36.7
--- NOTE | 2021-02-21 13:19 | P.HPUP_ITS ---
History and Physical Update Update Date/Time: 02/21/21 13:19 History and Physical has been reviewed, including an updated exam of the patient. There are NO changes in the patient's condition. Risks, benefits, and alternatives have been discussed and questions answered. Patient agrees to proceed with procedure. Brief HPI: Patient is a pleasant 75-year-old male history of persistent atrial fibrillation, aortic stenosis, hypertension with diabetes, dyslipidemia, pulmonary hypertension status post loop recorder implantation which has reached end of life with a desire to explant this device. Past medical history: AFib, DM, HTN, pulmonary hypertension social History: No tobacco alcohol currently family history: No history premature sudden cardiac noncontributory at this time. See medication list: Documented Review of systems: All 12 systems reviewed and are unremarkable without pertinent details. No chest pain, shortness of breath, bleeding, fevers, chills, syncope, palpitations, focal weakness or balance. examination: 97.9 94 beats per minute 16 respirations per minute 96% on room air 125/80 mm Hg 5 ft 6 in tall 235 lb NAD, pleasant, nonfocal exam, alert and oriented x3 lungs clear to auscultation irregular irregular rate rhythm S1-S2 obese nontender positive bowel sounds no edema clubbing cyanosis mood calm and appropriate. Skin warm and dry. palpable subcutaneous loop recorder left anterior chest wa ll 4th intercostal space approximately impression and plan of care: Previously implanted loop recorder at end of life. Explantation has requested without implantation of new device. Patient has persistent atrial fibrillation a new device will not add to management at this time. Furthermore, patient does not desire new device implantation.
--- NOTE | 2021-02-21 13:32 | P.OPB_ITS ---
Procedure Note - Brief Procedure Note - Brief Date of procedure: 02/21/21 Pre-op diagnosis: End of Life Battery Post-op diagnosis: same Procedure performed: loop recorder explantation Description of procedure: Brief history present illness: Patient is a pleasant 75-year-old male with a history persistent atrial fibrillation, hypertension, diabetes mellitus, dyslipidemia on anticoagulation status post loop recorder implantation now at end of life with patient request for explantation. After verbal and written informed consent was obtained from the patient risks, benefits, and alternatives explained in detail the patient agreed to proceed with the plan of care as outlined above. Patient was evaluated at bedside in the Cardiac catheterization lab procedure room. Patient was placed the appropriate supine position. Left anterior chest wall was prepped and draped in the usual sterile fashion. Operators in appropriate sterile garb. The left 4th intercostal space was identified and subcutaneous device palpated. Utilizing approximately 18 cc of 1% subcutaneous lidocaine the left anterior chest wall was then locally anesthetized. After local anesthesia was achieved, The loop recorder was freed using sharp and blunt dissection then removed easily and without complication. The device was intact and clean without evidence of infection. The pocket was then copiously flushed with Ancef solution. The pocket was clean and dry. Manual pressure was held for 5-10 minutes to ensure satisfactory hemostasis. Once confirmed, the incision was then approximated and closed using Exofin skin adhesive. The incision was then covered with a sterile dressing. Complications: None Anesthesia: local Surgeon: Jesus Ellis MD Drains: No Packing: No Pathology: none sent Complications: No immediate complications Condition: stable Disposition: same day Findings: Successful explantation of [employer] LINQ loop recorder without complication. Follow-up 1 week wound check as scheduled.
[2021-02-21 14:15] VITALS: BP 143/87; PULSE 76; RESP 14; TEMP 36.4; O2SAT 100
--- NOTE | 2021-02-21 14:29 | SUR.OPER ---
1430 IV d/c'd, cath intact, pressure applied, D/C instructions reviewed with patient, he verbalizes understanding. Pt transported to main lobby via wheelchair where he drove himself home.
== END | disposition home or self-care (01) ==
PROVIDERS: PCP Emergency Medicine; Visit Provider Internal Medicine Cardiovascular Disease
PROC: (CPT 33286; principal; 2021-02-21 13:00)
DX: Z45.09 Encounter for adjustment and management of other cardiac device (principal); I48.19 Other persistent atrial fibrillation; I10 Essential (primary) hypertension; E11.9 Type 2 diabetes mellitus without complications; E78.5 Hyperlipidemia, unspecified; I27.20 Pulmonary hypertension, unspecified; I35.0 Nonrheumatic aortic (valve) stenosis; Z79.01 Long term (current) use of anticoagulants
CPT/HCPCS: 33286; J0690; J7040

== ENCOUNTER → 2021-06-12 07:19 | Outpatient (CLI) | payer MEDICARE, SELFPAY ==
--- NOTE | ~2021-06-12 | XR_ITS ---
EXAMINATION: XR sacroiliac joints min 3V, XR lumbar spine min 4V EXAM DATE: 06/12/2021 08:47 INDICATION: L40.50 - Arthropathic psoriasis, unspecified TECHNIQUE: Lumber spine frontal, lateral, bilateral oblique projections. Coned down frontal and lat eral L5-S1 lumbar projections for interpretation. Additional sacroiliac frontal, bilateral oblique p rojections. There are no prior studies for comparison. FINDINGS: There is mild symmetric sclerosis along both sacroiliac joints, chronic sacroiliitis with m ultiple different possible underlying etiologies including psoriatic arthritis. Mild to moderate upper lumbar levoscoliosis, moderate to severe lumbar disc disease. Moderate lumbar facet arthropathy overall. There is minimal anterolisthesis L3 on L4 and L4 on L5. Moderate-sized low er thoracic and upper lumbar bridging endplate osteophytes. Paraspinal soft tissue is unremarkable. T here are 4 calcific densities projecting over right upper quadrant, could be gallstones. IMPRESSION: 1. Mild to moderate lumbar levoscoliosis. 2. Moderate to severe disc disease. 3. Moderate facet arthropathy. 4. Chronic sacroiliitis. Reviewed, dictated and finalized at location A. IMPRESSION: 1. Mild to moderate lumbar levoscoliosis. 2. Moderate to severe disc disease. 3. Moderate facet arthropathy. 4. Chronic sacroiliitis.
--- NOTE | ~2021-06-12 | XR_ITS ---
XR knee RT min 4V DATE: 06/12/2021 08:47 INDICATION: Arthropathic psoriasis TECHNIQUE: [place] and standing AP, PA and lateral views COMPARISON: None FINDINGS: There is severe loss of medial compartment joint space with [id number]. There is prominen t periarticular spurring at the patellofemoral joint and to a lesser extent at the lateral compartmen t. There is chondrocalcinosis. There is enthesopathy of the patella at the quadriceps and patellar tendon insertions. Small suprapatellar knee joint effusion is suggested. No fracture, dislocation, periosteal reaction o r bone destruction. There is extensive arterial calcification, suggesting diabetes most likely. IMPRESSION: Tricompartment osteoarthritis, most severe at the medial compartment Chondrocalcinosis Mild knee joint effusion is suggested Extensive arterial calcification, suggesting diabetes most likely Reviewed, dictated and finalized at location B. IMPRESSION: Tricompartment osteoarthritis, most severe at the medial compartmen t Chondrocalcinosis Mild knee joint effusion is suggested Extensive arterial calcification, suggesting diabetes most likely
--- NOTE | ~2021-06-12 | XR_ITS ---
EXAMINATION: HAND-KAY ARTHRITIS 3+VIEWS DATE: 06/12/2021 08:46 INDICATION: Unspecified osteoarthritis. TECHNIQUE: Posteroanterior, lateral, and oblique views of the left and of the right hands as well as a ballcatchers view of both hands were obtained. COMPARISON: None. FINDINGS: 2-3 mm ulnar minus variance both the right and left wrists. No fractures. Scattered chondrocalcinosis at the bilateral hands and wrists most prominent in the region of the triangular fibrocartilage comp lexes. Polyarticular osteoarthritis, severe at the left and advanced at the right first carpometacarp al joints, moderate severity at the bilateral second and third metacarpophalangeal and multiple bilat eral distal interphalangeal joints and mild at the wrist, triscaphe and remaining metacarpophalangeal and interphalangeal joints. There is secondary dorsal subluxation of the right first metacarpal at t he triscaphe joint, with prominent subarticular cystic change at the trapezium. Basilar calcific a cy st along the bilateral radial and ulnar arteries. IMPRESSION: 1. Polyarticular osteoarthritis at the bilateral hands and wrists, severe at the left and advanced at the right first carpal metacarpal joints. 2. Scattered chondrocalcinosis at the bilateral hands and wrists with atypically increased prominence of moderate osteoarthritis at the bilateral second and third metacarpophalangeal joints. This patter n of findings can be seen in the setting of macroscopic calcium pyrophosphate deposition (CPPD) disea se. Reviewed, dictated and finalized at location A. IMPRESSION: 1. Polyarticular osteoarthritis at the bilateral hands and wrists, severe at th e left and advanced at the right first carpal metacarpal joints. 2. Scattered chondrocalcinosis at the bilateral hands and wrists with atypicall y increased prominence of moderate osteoarthritis at the bilateral second and t hird metacarpophalangeal joints. This pattern of findings can be seen in the se tting of macroscopic calcium pyrophosphate deposition (CPPD) disease.
--- NOTE | ~2021-06-12 | XR_ITS ---
XR knee LT min 4V DATE: 06/12/2021 08:46 INDICATION: Arthropathic Psoriasis TECHNIQUE: [place] and standing AP, PA and lateral views COMPARISON: None FINDINGS: There is tricompartment osteophytosis, most severe at the medial compartment where there is severe loss of joint space as well as periarticular spurring. There is prominent periarticular spurr ing at the patellofemoral joint and minimally at the lateral compartment. Chondrocalcinosis is noted. No fracture or dislocation or joint effusion. No periosteal reaction or bone destruction. There is extensive arterial calcification, likely due to diabetes, most likely hypercalcemic state leal ch as hyperparathyroidism. IMPRESSION: Tricompartment osteoarthritis, most severe at the medial compartment Chondrocalcinosis Extensive arterial calcification, most likely due to diabetes Reviewed, dictated and finalized at location B. IMPRESSION: Tricompartment osteoarthritis, most severe at the medial compartmen t Chondrocalcinosis Extensive arterial calcification, most likely due to diabetes
== END ==
PROVIDERS: PCP Emergency Medicine; Visit Provider Internal Medicine
DX: L40.50 Arthropathic psoriasis, unspecified (principal); M19.90 Unspecified osteoarthritis, unspecified site; M51.36 Other intervertebral disc degeneration, lumbar region; M46.1 Sacroiliitis, not elsewhere classified; M19.031 Primary osteoarthritis, right wrist; M19.032 Primary osteoarthritis, left wrist; M19.041 Primary osteoarthritis, right hand; M19.042 Primary osteoarthritis, left hand; M17.0 Bilateral primary osteoarthritis of knee; I73.9 Peripheral vascular disease, unspecified
CPT/HCPCS: 72110; 72202; 73130; 73564

== ENCOUNTER → 2021-09-13 08:30 | Outpatient (CLI) | payer MEDICARE, SELFPAY ==
--- NOTE | ~2021-09-13 | MR_ITS ---
EXAMINATION: MR sacroiliac jts wo/w con DATE: 09/13/2021 10:32 INDICATION: Arthropathic psoriasis presenting with several months of low back pain TECHNIQUE: Magnetic resonance imaging (MRI) of the sacroiliac joints was performed without and with 2 0 mL Multihance intravenous contrast. Sequences included sagittal PD-weighted FSE; oblique axial T1- weighted FSE, T2-weighted FS FSE and T1-weighted FS FSE; oblique coronal T2-weighted FSE, T1-weighted FSE and postcontrast axial and coronal T1-weighted FS FSE.] COMPARISON: Radiographs dated 06/12/2021 FINDINGS: There is subarticular sclerosis at both sides of both the left and right sacroiliac joint spaces. The re is mild enhancing synovitis along the margins of a recess of the bilateral sacroiliac joints with mild enhancing erosions with sacral sided predominance along the left sacroiliac joint. Minimal subar ticular edema and enhancement along the sacral side of the right sacroiliac joint. Findings are consi stent with asymmetric left-sided predominant acute on chronic sacroiliitis consistent with given hist ory of psoriatic arthritis. Mild bilateral hip osteoarthritis. 5 mm anterior and right lateral listhe sis L4 on L5. Severe lower lumbar spondylosis including mild central canal stenosis and mild neural f oraminal stenosis on the right at L4-L5 and moderate neural foraminal stenosis on the left at L4-L5 a nd bilaterally at L5-S1. No fracture or pathologic marrow replacing process. There few diverticula al kari the visualized sigmoid colon without adjacent from 3 change to suggest diverticulitis. Bladder is normal. No pathologically enlarged lymphadenopathy in the visualized pelvis. IMPRESSION: 1. Mild bilateral acute on chronic asymmetric sacroiliitis, left greater than right, which would be c onsistent with given history of psoriatic arthritis. 2. Severe lower lumbar spondylosis. Reviewed, dictated and finalized at location A. CARE TECHNICIAN IMPRESSION: 1. Mild bilateral acute on chronic asymmetric sacroiliitis, left greater than r ight, which would be consistent with given history of psoriatic arthritis. 2. Severe lower lumbar spondylosis.
== END ==
PROVIDERS: PCP Emergency Medicine; Visit Provider Internal Medicine
DX: M47.896 Other spondylosis, lumbar region (principal); M53.3 Sacrococcygeal disorders, not elsewhere classified
CPT/HCPCS: 72197; A9577

== ENCOUNTER → 2022-12-04 09:46 | Outpatient (CLI) | payer MEDICARE, SELFPAY ==
--- NOTE | ~2022-12-04 | XR_ITS ---
XR_CERV2-3V_CR DATE: 12/04/2022 10:06 INDICATION: Neck pain TECHNIQUE: AP, open-mouth, lateral, swimmer views COMPARISON: None FINDINGS: C1 and C2 are normally aligned and the odontoid process is intact. There is severe degenerative disc disease at C4-5, C5-6 and C6-7. No fracture or dislocation or locked facet is evident. No prevertebral soft tissue swelling. IMPRESSION: Severe degenerative disc disease of the mid and lower cervical spine Reviewed, dictated and finalized at Location [facility]. Reviewed, dictated and finalized at location B. IMPRESSION: Severe degenerative disc disease of the mid and lower cervical spin e
== END ==
PROVIDERS: PCP Emergency Medicine; Visit Provider Emergency Medicine
DX: M50.30 Other cervical disc degeneration, unspecified cervical region (principal)
CPT/HCPCS: 72040

== ENCOUNTER → 2022-12-04 09:58 | Outpatient (CLI) | payer MEDICARE, SELFPAY ==
--- NOTE | ~2022-12-04 | MR_ITS ---
EXAMINATION: MRI SACRUM W/O CONTRAST DATE: 12/04/2022 10:49 INDICATION: Sacroiliitis TECHNIQUE: Magnetic resonance imaging (MRI) of the sacrum and bilateral sacroiliac joints was perform ed without intravenous contrast. Sequences included sagittal PD-weighted FSE; oblique axial T1-weigh shivam FSE and T2-weighted FS FSE; oblique coronal T2-weighted FSE, T1-weighted FSE and T2-weighted FS F SE. COMPARISON: 09/13/2021 FINDINGS: Again seen is subarticular sclerosis at both sides of both the left and right sacroiliac joint spaces . Unchanged minimal subarticular edema and enhancement along the sacral side of both the right and le ft sacroiliac joints. There is enhancement associated with unchanged small erosion at the sacral side of the anterosuperior aspect of the left sacroiliac joint. Findings remain consistent with asymmetri c left-sided predominant acute on chronic sacroiliitis consistent with given history of psoriatic art hritis. Mild bilateral hip osteoarthritis. Unchanged 5 mm anterior and right lateral listhesis L4 on L5. Severe lumbar spondylosis with severe disc height loss at L3-L4, L4-L5 and L5-S1. Associated ada ular fissures and disc extrusions at each level resulting in mild to moderate central canal stenosis at L3-L4 and mild central canal stenosis at L4-L5 and L5-S1. Lumbar facet osteoarthritis, severe bila terally at L4-L5 and moderate bilaterally at L5-S1. Moderate neural foraminal stenosis bilaterally at L4-L5 and L5-S1, left greater than right. No fracture or pathologic marrow replacing process. Bladde r is normal. No free fluid in the deep pelvis. No pathologically enlarged lymphadenopathy in the visu alized pelvis. IMPRESSION: 1. Improvement in the bilateral mild asymmetric sacroiliitis, left greater than right, which would be consistent with given history of psoriatic arthritis. The left-sided erosion and bilateral minimal s ubarticular changes are unchanged but there has been decrease in the prior mild more diffuse enhancin g synovitis. 2. Severe lower lumbar spondylosis. Reviewed, dictated and finalized at location A. IMPRESSION: 1. Improvement in the bilateral mild asymmetric sacroiliitis, left greater than right, which would be consistent with given history of psoriatic arthritis. Th e left-sided erosion and bilateral minimal subarticular changes are unchanged b ut there has been decrease in the prior mild more diffuse enhancing synovitis. 2. Severe lower lumbar spondylosis.
== END ==
PROVIDERS: PCP Internal Medicine; Visit Provider Internal Medicine
DX: L40.50 Arthropathic psoriasis, unspecified (principal); M47.896 Other spondylosis, lumbar region; M53.3 Sacrococcygeal disorders, not elsewhere classified
CPT/HCPCS: 72197; A9577

== ENCOUNTER 2023-01-13 07:20 | Observation (INO) | payer MEDICARE, SELFPAY ==
[2023-01-13] VITALS (38 sets, daily range): BP systolic 126–165; BP diastolic 59–113; PULSE 70–88; RESP 13–22; TEMP 36.3–36.6; O2SAT 97–100; BMI 34.6
--- NOTE | ~2023-01-13 | CT_ITS ---
Non-contrast Head CT History: Dizziness Technique: Axial non-contrast imaging of the brain was performed. Dose reduction technique was used on this scan by utilizing automated exposure control and iterative reconstruction technique. The dose -length product (DLP) was 605.33 mGy-cm. Findings: There is no evidence of intracranial hemorrhage, mass lesion, or acute infarct. Brain par enchyma appears normal. The ventricles and subarachnoid spaces are normal in size. The calvarium ap pears normal. The visualized paranasal sinuses and mastoid air cells are clear. Impression: No significant abnormality seen. Reviewed, dictated and finalized at location . Impression: No significant abnormality seen.
--- NOTE | 2023-01-13 07:34 | ECG_ITS ---
Measurements Intervals [place] Rate: 78 P: UT: 0 QRS: -34 QRSD: 154 T: 1 QT: 420 QTc: 480 Interpretive Statements ATRIAL FIBRILLATION LEFT AXIS DEVIATION VENTRICULAR PREMATURE COMPLEX RIGHT BUNDLE BRANCH BLOCK BASELINE ARTIFACT- I, II, III, AVR, AVL, AVF, V1-V6 ABNORMAL ECG NO PREVIOUS ECG AVAILABLE FOR COMPARISON Electronically Signed On 01-13-2023 8:18:10 CDT by Partha Bowie D.O.
[2023-01-13 07:50] LABS: Basophils Absolute Auto 0.1 K/mm3 (0.0-0.1); Basophils Percent Auto 0.5 % (0.2-1.2); Eosinophils Percent Auto 0.4 % (0-4.4); Hematocrit 39.3 % (42.0-52.0); Hemoglobin 12.8 g/dL (14.0-18.0); Immature Granulocyte Absolute 0.03 K/mm3 (0.00-0.031); Immature Granulocyte Percent A 0.3 % (0-0.5); Lymphocytes Absolute Auto 1.58 K/mm3 (0.9-3.2); Lymphocytes Percent Auto 16.2 % (18.3-44.2); Mean Corpuscular HGB Conc 32.6 g/dl (32-36); Mean Corpuscular Hemoglobin 31.1 pg (26-34); Mean Corpuscular Volume 95.6 fl (80-100); Mean Platelet Volume 10.7 fl (7.4-10.4); Monocytes Absolute Auto 0.6 K/mm3 (0.1-0.6); Monocytes Percent Auto 6.3 % (2.6-8.5); Neutrophils Absolute Auto 7.5 K/mm3 (1.3-6.7); Neutrophils Percent Auto 76.3 % (45.5-73.1); Platelet Count Result 238 k/mm3 (150-375); Red Blood Count 4.11 M/mm3 (4.6-6.20); White Blood Count 9.8 K/mm3 (4.5-10.0)
[2023-01-13] MEDS: MECLIZINE HCL 25 MG TABLET PO (07:55)
[2023-01-13 08:01] LABS: Ethanol < 10 mg/dL (<10); INR 1.5; Prothrombin Time 18.5 Seconds (11.1-14.7)
[2023-01-13 08:02] LABS: Partial Thromboplastin Time 29.9 SECONDS (22.3-36.8)
[2023-01-13 08:06] LABS: Alanine Aminotransferase 50 U/L (6-50); Albumin Level 4.2 g/dL (3.5-5.1); Alkaline Phosphatase 114 U/L (38-126); Anion Gap 6 mmol/L (8-16); Aspartate Amino Transferase 67 U/L (17-59); Bilirubin,Total 0.7 mg/dL (0.2-1.3); Blood Urea Nitrogen 9 mg/dL (9-20); Calcium 9.2 mg/dL (8.4-10.2); Carbon Dioxide 28 mmol/L (22-30); Chloride 101 mmol/L (98-107); Estimated CRCL calculation 87 ml/min; Estimated Glomerular Filt Rate > 60; Glucose 43 mg/dL (65-110); Potassium 3.1 mmol/L (3.4-5.0); Sodium 135 mmol/L (137-145)
--- NOTE | 2023-01-13 08:11 | ED.DIZZY ---
HPI - Dizziness General Chief Complaint: Dizziness Stated Complaint: weakness, dizziness Time Seen by Provider: 01/13/23 07:33 History of Present Illness HPI Narrative: Patient was up around 130 and was sitting on his recliner when he went up to the bathroom around 530, and then felt quite dizzy as if the room spinning around him, he then got quite nauseous with dry heaves. Feels fine when he isn't moving around. No h/o CVA, does have afib which he takes blood thinners for. No recent illness, chest pain, trouble breathing, abdominal pain, numbness/tingling, headache. Related Data Home Medications Medication Instructions Recorded Confirmed insulin needles (disposable) 30 X ##1 09/22/20 01/25/22 3/4 rivaroxaban 20 mg tablet (Xarelto) 20 mg PO QPM 09/22/20 01/25/22 Allergies Allergy/AdvReac Type Severity Reaction Status Date / Time venom-honey bee Allergy Intermediate Swelling Verified 01/13/23 07:33 Review of Systems Review of Systems: CONST: No fever. HEENT: No sore throat C/V: No chest pain RESP: No cough GI: Nausea/vomiting : No dysuria. M/S: No joint pain. SKIN: No rash. NEURO: Dizziness PSYCH: [No depression] [facility] Past Medical History Medical History Chronic anticoagulation Patient takes rivaroxaban for stroke prophylaxis given persistent atrial fibrillation. Diabetic peripheral neuropathy Essential hypertension Generalized osteoarthritis Hernia (~1989) Hyperlipidemia Inflammatory arthritis Insulin dependent type 2 diabetes mellitus Hemoglobin A1c was 7.7% on 12/28/2020. Kidney stone (~1976) Moderate aortic valve stenosis Nonrheumatic moderate aortic stenosis noted on echocardiogram on 11/28/2020 with a valve area of 1.08 cm2. Moderate pulmonary hypertension Estimated peak RVSP 48 mmHg on echo on 11/28/2020. Persistent atrial fibrillation Psoriasis Surgical History Surgical History History of bilateral cataract extraction History of eye surgery Retinal surgery due to wrinkling. History of loop recorder times 2 since removed History of surgery on arm Left upper extremity tendon repair. History of ventral hernia repair Family History Family History Father , 70 -- Diabetes cause of Diabetes mellitus Mother , 35 -- [place] Brain bleed Social History Social History Social History: Surrogate decision maker: Olivia Jewell, spouse.3 children Code status: Full code. Smoking status: Former smoker Alcohol intake: never Substance use: never Substance use type: does not use Living arrangements: with family Additional living arrangements comments: The patient lives in [place] with his . Occupation/Education: retired Additional occupation/education comments: Retired. Worked in construction and [employer]. Gender identity (if verbalized by the patient): Male Spiritual care concerns: No Exam Narrative: EXAMINATION OF ORGAN SYSTEMS/BODY AREAS: Constitutional: Vital signs per nursing GENERAL:[No acute distress, non-toxic appearing.] HEAD: Normal with no signs of head trauma. EYES: EOMI, conjunctiva normal ENT: Hearing grossly intact LUNGS: Nonlabored breathing. HEART: [Regular rate and rhythm] ABD: [Soft], [nontender to palpation] EXT: Normal range of motion SKIN: [No rashes or lesions.] NEURO: [Alert and oriented x 3. No gross focal sensory or strength deficits.] Finger to nose intact. PSYCH: Normal affect Course Vital Signs Vital signs: Vital Signs Temperature 97.5 F L 01/13/23 07:25 Pulse Rate 79 01/13/23 07:25 Respiratory Rate 18 01/13/23 07:25 Blood Pressure 165/59 H 01/13/23 07:25 Pulse Oximetry 100 01/13/23 07:25 Temperature 97.5 F L 01/13/23 07:25 Pulse R
[2023-01-13 08:15] LABS: Lactic Acid Reflex 2.1 mmol/L (0.7-2.0)
[2023-01-13 08:16] LABS: Troponin I < 0.012 ng/mL (0.000-0.034)
--- NOTE | 2023-01-13 08:20 | PC.NURSE ---
Apple juice given.
[2023-01-13] MEDS: POTASSIUM CHLORIDE 20 MEQ PACKET (FOR LIQUID) 40 MEQ PO (08:22)
[2023-01-13 08:29] LABS: Appearance Urine Clear (Clear); Bacteria Urine None Seen /hpf; Bilirubin Urine Negative (Negative); Blood Urine Trace (Negative); Color Urine Yellow (Yellow); Glucose Urine UA Trace mg/dL (Negative); Ketones Urine Negative (Negative); Leukocyte Esterase Ur Negative LEU/UL (Negative); Need Manual Microscopic Reviewed; Nitrate Urine Negative (Negative); Protein Urine 2+ mg/dL (Negative); RBC Urine 0-2 /hpf (0-2); Specific Grav Ur 1.015 (1.001-1.035); Squamous Epithelial Cell Urine None seen /hpf (Few); Urobilinogen Urine 0.2 mg/dL (<2.0); WBC Urine 0-5 /hpf; pH Urine 5.5 (5.0-9.0)
[2023-01-13 08:35] LABS: Thyroid Stimulating Hormone 0.561 uIU/mL (0.465-4.680)
[2023-01-13 08:39] LABS: Add Urine Microscopic? YES
[2023-01-13 08:41] LABS: Glucose Point of Care 83 mg/dl (65-105)
--- NOTE | 2023-01-13 09:37 | PC.NURSE ---
Denies further dizziness.
[2023-01-13 11:02] LABS: Reflex Lactic Acid Yes or No Add Lactic
[2023-01-13 11:28] LABS: Glucose Point of Care 62 mg/dl (65-105)
[2023-01-13 11:54] LABS: Lactic Acid 1.7 mmol/L (0.7-2.0)
--- NOTE | 2023-01-13 13:03 | PM.IMHP ---
H&P: HPI History of Present Illness Date/Time: 01/13/23 13:03 Chief Complaint: Dizziness and weakness Narrative: This is a 77-year-old male patient who has a history of diabetes, hypertension, and AFib. The patient stated that he took his medications as usual last night/yesterday. The patient stated that he was up around 130 this morning was sitting in his recliner and then he got up and went to bathroom around 530 and he felt quite dizzy as if the room was spinning around him. The patient became very nauseous at that time and had dry heaves. His symptoms resolve when he is staying still. Has no history of any CVA. He does take blood thinners for his AFib. No fever chills. No abdominal pain. His H&H is 12.839.3 which is his baseline. Sodium was 135 and potassium 3.1. His blood sugar was 43 and came up to 62. The patient has eaten 2 meals since I saw him last. Lactic acid was 2.[address] was read as no significant abnormality seen. The patient was supplemented with potassium and given Antivert. The patient is no longer dizzy. The patient is being admitted to observation status on the date of service of 01/13/2023 Review of Systems Review of Systems: All systems reviewed & are unremarkable except as noted in HPI and below Constitutional: Constitutional: Reports as per HPI and Reports no additional constitutional complaints Eyes: Eyes: Reports as per HPI and Reports no additional eye complaints ENT: Reports system reviewed and no additional complaints, except as documented and Reports Normal hearing present Cardiovascular: Cardiovascular: Reports no additional cardiovascular complaints Respiratory: Respiratory: Reports no additional respiratory complaints and Reports no additional respiratory complaints Gastrointestinal: Gastrointestinal: Reports as per HPI and Reports no additional gastrointestinal complaints Musculoskeletal: Musculoskeletal: Reports no additional musculoskeletal complaints Integumentary/Breasts: Skin/Breast: Reports system reviewed and no additional complaints, except as docu and Reports as per HPI Neurologic: Reports system reviewed and no additional complaints, except as documented, Reports as per HPI and Reports Normal hearing present Psychiatric: Psychiatric: Reports no additional psychiatric complaints and Reports as per HPI Endocrine: Endocrine: Reports no additional endocrine complaints Hematologic/Lymphatic: Hematologic/Lymphatic: Reports no additional hematologic/lymphatic complaints Allergic/Immunologic: Allergic/Immunologic: Reports no additional allergic/immunologic complaints [facility] Past Medical History Medical History (Updated 01/13/23 @ 14:51 by Sonia Norman NP) Chronic anticoagulation Patient takes rivaroxaban for stroke prophylaxis given persistent atrial fibrillation. Diabetic peripheral neuropathy Essential hypertension Generalized osteoarthritis Hernia (~1989) History of kidney stones Hyperlipidemia Inflammatory arthritis Insulin dependent type 2 diabetes mellitus Hemoglobin A1c was 7.7% on 12/28/2020. Kidney stone (~1976) Moderate aortic valve stenosis Nonrheumatic moderate aortic stenosis noted on echocardiogram on 11/28/2020 with a valve area of 1.08 cm2. Moderate pulmonary hypertension Estimated peak RVSP 48 mmHg on echo on 11/28/2020. Persistent atrial fibrillation Psoriasis Surgical History Surgical History History of bilateral cataract extraction History of eye surgery Retinal surgery due to wrinkling. History of loop recorder times 2 since removed History of surgery on arm Left upper extremity tendon repair. History of ventral hernia repair Family History Family History Father , 70 -- Diabetes cause of Diabetes mellitus Mother , 35 -- [place] Brain bleed Social History Social History (Updated
[2023-01-13 14:52] LABS: Glucose Point of Care 91 mg/dl (65-105)
--- NOTE | 2023-01-13 15:22 | ADMGEN ---
This patient, Damir Jewell, was admitted to Virtual Bed 3rd Floor-1. Patient/family oriented to hospital policies and general routines including ID bracelet, bed and alarms, visiting hours, pain management, procedures, bathroom and other care routines, personal items, smoking policy, room service/diet, and visiting hours. Information on how to activate the Rapid Response Team has been discussed. Patient/Family are encouraged to report perceived risks to care and to ask questions if they do not understand what they are told or what they should do.
[2023-01-13 17:35] LABS: Glucose Point of Care 141 mg/dl (65-105)
[2023-01-13 20:03] LABS: Glucose Point of Care 154 mg/dl (65-105)
[2023-01-13 22:58] LABS: Anion Gap 5 mmol/L (8-16); Blood Urea Nitrogen 10 mg/dL (9-20); Calcium 8.5 mg/dL (8.4-10.2); Carbon Dioxide 26 mmol/L (22-30); Chloride 103 mmol/L (98-107); Estimated CRCL calculation 86 ml/min; Estimated Glomerular Filt Rate > 60; Glucose 108 mg/dL (65-110); Potassium 3.6 mmol/L (3.4-5.0); Sodium 134 mmol/L (137-145)
[2023-01-13 23:28] LABS: Glucose Point of Care 118 mg/dl (65-105)
[2023-01-14] VITALS (9 sets, daily range): BP systolic 128–142; BP diastolic 56–90; PULSE 69–110; RESP 16–20; TEMP 36.3–36.9; O2SAT 96–100
[2023-01-14] MEDS: RIVAROXABAN 20 MG TABLET PO ×2 (00:39→18:12)
[2023-01-14] MEDS: VERAPAMIL HCL ER 240 MG TABLET.ER PO ×2 (00:39→18:12)
[2023-01-14 04:54] LABS: Basophils Absolute Auto 0.1 K/mm3 (0.0-0.1); Basophils Percent Auto 0.8 % (0.2-1.2); Eosinophils Absolute Auto 0.1 K/mm3 (0-0.3); Eosinophils Percent Auto 1.4 % (0-4.4); Hematocrit 34.8 % (42.0-52.0); Hemoglobin 11.6 g/dL (14.0-18.0); Immature Granulocyte Absolute 0.01 K/mm3 (0.00-0.031); Immature Granulocyte Percent A 0.1 % (0-0.5); Lymphocytes Absolute Auto 2.86 K/mm3 (0.9-3.2); Lymphocytes Percent Auto 38.8 % (18.3-44.2); Mean Corpuscular HGB Conc 33.3 g/dl (32-36); Mean Corpuscular Hemoglobin 31.4 pg (26-34); Mean Corpuscular Volume 94.3 fl (80-100); Mean Platelet Volume 10.8 fl (7.4-10.4); Monocytes Absolute Auto 0.6 K/mm3 (0.1-0.6); Monocytes Percent Auto 8.5 % (2.6-8.5); Neutrophils Absolute Auto 3.7 K/mm3 (1.3-6.7); Neutrophils Percent Auto 50.4 % (45.5-73.1); Platelet Count Result 205 k/mm3 (150-375); Red Blood Count 3.69 M/mm3 (4.6-6.20); Red Cell Distribution Width 15.9 % (11.5-14.5); White Blood Count 7.4 K/mm3 (4.5-10.0)
[2023-01-14 05:05] LABS: Alanine Aminotransferase 42 U/L (6-50); Albumin Level 3.4 g/dL (3.5-5.1); Alkaline Phosphatase 95 U/L (38-126); Anion Gap 3 mmol/L (8-16); Aspartate Amino Transferase 56 U/L (17-59); Bilirubin,Total 0.7 mg/dL (0.2-1.3); Blood Urea Nitrogen 9 mg/dL (9-20); Calcium 8.7 mg/dL (8.4-10.2); Carbon Dioxide 30 mmol/L (22-30); Chloride 104 mmol/L (98-107); Estimated CRCL calculation 86 ml/min; Estimated Glomerular Filt Rate > 60; Glucose 108 mg/dL (65-110); Magnesium 1.9 mg/dL (1.6-2.3); Potassium 3.5 mmol/L (3.4-5.0); Sodium 137 mmol/L (137-145)
[2023-01-14 05:06] LABS: Hemoglobin A1C 4.7 % (<5.7)
[2023-01-14 05:09] LABS: Lactic Acid Reflex 1.7 mmol/L (0.7-2.0)
[2023-01-14 06:06] LABS: Thyroid Stimulating Hormone Reflex 0.337 uIU/mL (0.465-4.68)
[2023-01-14 07:38] LABS: Free T4 Free Thyroxine Reflex 1.56 ng/dL (0.78-2.19)
[2023-01-14 08:27] LABS: Glucose Point of Care 128 mg/dl (65-105)
[2023-01-14 08:28] LABS: Total Triiodothyronine (T3) 1.19 NG/ML (0.97-1.69)
[2023-01-14] MEDS: LOSARTAN POTASSIUM 100 MG TABLET PO (08:28)
[2023-01-14 11:53] LABS: Glucose Point of Care 204 mg/dl (65-105)
[2023-01-14] MEDS: INSULIN ASPART (*BKC) 100 UNITS/ML SUB-Q (13:02)
--- NOTE | 2023-01-14 15:45 | PM.IMPN ---
Progress Note: A&P Assessment and Plan (1) Hypoglycemia: Code(s): E16.2 - Hypoglycemia, unspecified Status: Acute Assessment and Plan: Accu-Cheks q.1 hour. The patient stated that he took off his medication as usual. He stated he did not miss any meals or lose any weight recently. Continue with hypoglycemic protocol. His glipizide will be placed on hold as well as his long-acting insulin Check A1c 01/14/2023 interval history: patient with history of DM and taking levemier 100u at bedtime, glipizide 10mg BID, and metformin 500mg BID, upon arrival patient blood sugar was 43, it seems patient dizziness is stemming from hypoglycemia, will hold patient insulin and antidiabetes medications and monitor will sliding scale and resume the medication at lower dose, will have gsa coordinator and disc jockey work with the patient. (2) Hypokalemia: Code(s): E87.6 - Hypokalemia Status: Acute Assessment and Plan: His potassium was replaced in the emergency room. Will check another BMP tonight. Also check magnesium level. Replace as necessary. Continue with losartan (3) Dizziness: Code(s): R42 - Dizziness and giddiness Status: Acute Assessment and Plan: Continue with meclizine. CT of the brain was negative. His blood sugar was low and perhaps this is caused his dizziness. His dizziness is now resolved. (4) Persistent atrial fibrillation: Code(s): I48.19 - Other persistent atrial fibrillation Status: Chronic Assessment and Plan: Continue with patient's for rapid mill as well as his Xarelto. (5) Diabetes mellitus: Qualifiers: Diabetes mellitus complication detail: with other skin complication Diabetes mellitus complication status: with skin complications Diabetes mellitus mcc insulin use: with buttermaker use Diabetes mellitus type: type 2 Qualified Code(s): E11.628 - Type 2 diabetes mellitus with other skin complications; Z79.4 - snf (current) use of insulin Code(s): E11.9 - Type 2 diabetes mellitus without complications Status: Acute Assessment and Plan: Hold all diabetic medication as he is having an episode of hypoglycemia at this time. (6) Essential (primary) hypertension: Code(s): I10 - Essential (primary) hypertension Status: Acute Assessment and Plan: P.r.n. hydralazine with parameters. Resume a rapid male and losartan once his medications are reconciled. (7) Psoriasis: Code(s): L40.9 - Psoriasis, unspecified Status: Chronic Assessment and Plan: Continue with steroid cream and Eucerin. (8) HLD (hyperlipidemia): Code(s): E78.5 - Hyperlipidemia, unspecified Status: Acute Assessment and Plan: Continue with pravastatin once his medications have been reconciled. Subjective Date/time seen: 01/14/23 15:45 Interval history: Dizziness and weakness HPI-Narrative: This is a 77-year-old male patient who has a history of diabetes, hypertension, and AFib.? The patient stated that he took his medications as usual last night/yesterday.? The patient stated that he was up around 130 this morning was sitting in his recliner and then he got up and went to bathroom around 530 and he felt quite dizzy as if the room was spinning around him.? The patient became very nauseous at that time and had dry heaves.? His symptoms resolve when he is staying still.? Has no history of any CVA.? He does take blood thinners for his AFib.? No fever chills.? No abdominal pain.? His H&H is 12.839.3 which is his baseline.? Sodium was 135 and potassium 3.1.? His blood sugar was 43 and came up to 62.? The patient has eaten 2 meals since I saw him last.? Lactic acid was 2.1 now 1.7.? Head CT was read as no significant abnormality seen.? The patient was supplemented with potassium and given Antivert.? The patient is no longer dizzy.? The patient is being admitted to observation status on the date of ser
[2023-01-14 16:41] LABS: Glucose Point of Care 196 mg/dl (65-105)
[2023-01-14] MEDS: PRAVASTATIN SODIUM 20 MG TABLET 40 MG PO (18:12)
[2023-01-14 19:57] LABS: Glucose Point of Care 215 mg/dl (65-105)
[2023-01-15 08:00] VITALS: BP 146/81; PULSE 84; RESP 16; TEMP 36.4; O2SAT 99
[2023-01-15 08:00] LABS: Glucose Point of Care 139 mg/dl (65-105)
[2023-01-15] MEDS: EUCERIN CREAM 120 GM JAR 1 APPLIC TOPICAL (09:58)
[2023-01-15 11:15] LABS: Glucose Point of Care 180 mg/dl (65-105)
[2023-01-15] MEDS: LOSARTAN POTASSIUM 100 MG TABLET PO (11:20)
--- NOTE | 2023-01-15 11:26 | PM.DS ---
DS: Admitting Diagnosis Discharge Date January 15, 2023 Admitting Diagnosis Hypoglycemia DS: Summary Hospital Course Hospital Course: Patient was admitted for hypoglycemia, no infection or source was found the exception probably taking too much insulin. We discussed treating this as an outpatient and decreasing his long-acting insulin that he takes prior to bedtime. He will need follow-up his primary care physician and continue to monitor this adjust medications as needed. Time Spent with Patient Time attestation: Total time spent providing and/or coordinating discharge services: DS: Data Data Completed and Pending Labs on day of discharge: Labs from last 24 hours 01/15/23 01/15/23 01/14/23 11:13 07:56 19:14 POC Capillary Glucose 180 H 139 H 215 H 01/14/23 01/14/23 15:50 11:38 POC Capillary Glucose 196 H 204 H Discharge Plan Discharge Attending physician on discharge: Jeff Powers Discharging Clinician: Jeff Powers Patient Disposition: Home, Self-Care Activity: no preference Diet: as tolerated Patient Instructions: Antibiotic Form Stand Alone Forms: General Discharge Information Follow-up/Referrals: Jeff Downs MD [Primary Care Provider] - Discharge Medications: Continued Xarelto 20 mg tablet 20 mg PO QPM Rx Instructions: must administer with evening meal (DME) insulin needles (disposable) 30 X 3/4 needle See Rx Instructions .ROUTE .MEDSUPPLY Qty: 1 Rx Instructions: USE DIRECTED WITH INSULIN PEN (DISPENSE PATIENTS PREFERRED PEN NEEDLE) leflunomide 20 mg tablet 20 mg PO DAILY Qty: 90 1RF Otezla 30 mg Tablet 30 mg PO QAM AND QPM metformin 500 mg tablet 500 mg PO DAILY Jardiance 10 mg tablet 10 mg PO DAILY glipizide 5 mg tablet 10 mg PO BID Qty: 360 3RF losartan 100 mg tablet 100 mg PO QAM Qty: 90 2RF indapamide 2.5 mg tablet 2.5 mg PO QAM Qty: 90 2RF pravastatin 40 mg tablet 40 mg PO QPM Qty: 90 1RF verapamil 240 mg tablet extended release 240 mg PO QPM Qty: 90 1RF Changed Levemir FlexPen 100 unit/mL (3 mL) insulin pen 80 unit SUBCUT QPM Qty: 15 0RF Date of admission: 01/13/23 12:13 Primary Care Provider: Jeff Downs Admitting Provider: Luisa Watkins Attending physician on admission: Luisa Watkins Condition: Serious
== END 2023-01-15 12:35 | disposition home or self-care (01) ==
LOC: ANHED 10:00 → ANH3MEDSUR 14:50 → ANHIMU 18:25 → ANH3MEDSUR 01-15 07:49 → ANHIMU 01-16 12:15
PROVIDERS: Nurse Practitioner; Admitting Provider Family Medicine; Emergency Provider Emergency Medicine; PCP Emergency Medicine; Visit Provider Chiropractor
DX: E11.649 Type 2 diabetes mellitus with hypoglycemia without coma (principal); E87.6 Hypokalemia; R42 Dizziness and giddiness; I48.19 Other persistent atrial fibrillation; E11.628 Type 2 diabetes mellitus with other skin complications; L40.9 Psoriasis, unspecified; E78.5 Hyperlipidemia, unspecified; E11.42 Type 2 diabetes mellitus with diabetic polyneuropathy; I10 Essential (primary) hypertension; M15.9 Polyosteoarthritis, unspecified; I27.20 Pulmonary hypertension, unspecified; R94.31 Abnormal electrocardiogram [ECG] [EKG]; Z83.3 Family history of diabetes mellitus; Z79.891 Long term (current) use of opiate analgesic; Z79.4 Long term (current) use of insulin; Z79.01 Long term (current) use of anticoagulants; Z79.52 Long term (current) use of systemic steroids; Z79.84 Long term (current) use of oral hypoglycemic drugs; Z79.899 Other long term (current) drug therapy
CPT/HCPCS: 36415; 70450; 80048; 80053; 80307; 81001; 82948; 83036; 83605; 83735; 84439; 84443; 84480; 84484; 85025; 85610; 85730; 93005; 97165; 99285; A9270; G0378; J1815

== ENCOUNTER → 2023-05-06 12:02 | Outpatient (CLI) | payer MEDICARE, SELFPAY ==
--- NOTE | ~2023-05-06 | XR_ITS ---
XR chest 2V 05/06/2023 12:27 Indication: Chest pain Procedure: 2 view chest Comparison: No prior studies for comparison. Findings: Cardiomegaly. Mild interstitial edema. No significant effusion. No pneumothorax. No acute o sseous abnormality. Impression: 1: Mild interstitial edema. Reviewed, dictated and finalized at location L. Impression: 1: Mild interstitial edema.
== END ==
PROVIDERS: PCP Emergency Medicine; Visit Provider Emergency Medicine
DX: R07.9 Chest pain, unspecified (principal)
CPT/HCPCS: 71046

== ENCOUNTER 2023-08-04 15:19 | Outpatient (CLI) | payer MEDICARE, SELFPAY ==
[2023-08-04 15:53] LABS: Basophils Percent Auto 0.6 % (0.2-1.2); Eosinophils Percent Auto 0.6 % (0-4.4); Hematocrit 26.5 % (42.0-52.0); Hemoglobin 8.4 g/dL (14.0-18.0); Immature Granulocyte Absolute 0.01 K/mm3 (0.00-0.031); Immature Granulocyte Percent A 0.2 % (0-0.5); Lymphocytes Absolute Auto 1.45 K/mm3 (0.9-3.2); Lymphocytes Percent Auto 22.1 % (18.3-44.2); Mean Corpuscular HGB Conc 31.7 g/dl (32-36); Mean Corpuscular Hemoglobin 26.2 pg (26-34); Mean Corpuscular Volume 82.6 fl (80-100); Mean Platelet Volume 11.1 fl (7.4-10.4); Monocytes Absolute Auto 0.7 K/mm3 (0.1-0.6); Monocytes Percent Auto 11.3 % (2.6-8.5); Neutrophils Absolute Auto 4.3 K/mm3 (1.3-6.7); Neutrophils Percent Auto 65.2 % (45.5-73.1); Platelet Count Result 159 k/mm3 (150-375); Red Blood Count 3.21 M/mm3 (4.6-6.20); White Blood Count 6.6 K/mm3 (4.5-10.0)
[2023-08-04 16:09] LABS: Anion Gap 8 mmol/L (8-16); Blood Urea Nitrogen 16 mg/dL (9-20); Calcium 8.6 mg/dL (8.4-10.2); Carbon Dioxide 26 mmol/L (22-30); Chloride 99 mmol/L (98-107); Estimated Glomerular Filt Rate > 60; Glucose 82 mg/dL (65-110); Potassium 3.6 mmol/L (3.4-5.0); Sodium 133 mmol/L (137-145)
[2023-08-04 16:34] LABS: Anisocytosis 1+ (NORMAL); Platelet Estimate Adequate (Adequate)
[2023-08-04 16:35] LABS: Ovalocytes 1+ (NORMAL); Schistocytes None Seen (NORMAL); Target Cells 1+ (NORMAL)
== END 2023-08-04 15:20 | disposition home or self-care (01) ==
PROVIDERS: PCP Emergency Medicine; Visit Provider Internal Medicine Cardiovascular Disease
DX: I50.21 Acute systolic (congestive) heart failure (principal); I25.10 Atherosclerotic heart disease of native coronary artery without angina pectoris
CPT/HCPCS: 36415; 80048; 85025

== ENCOUNTER 2023-10-20 07:15 | Outpatient (RCR) | payer MEDICARE, SELFPAY ==
[2023-08-04 08:45] LABS: Glucose Point of Care 59 mg/dl (65-105)
[2023-08-04 08:45] LABS: Glucose Point of Care 53 mg/dl (65-105)
[2023-08-04 08:45] LABS: Glucose Point of Care 55 mg/dl (65-105)
[2023-08-04 08:45] LABS: Glucose Point of Care 101 mg/dl (65-105)
[2023-08-06 08:13] LABS: Glucose Point of Care 93 mg/dl (65-105)
[2023-08-06 08:13] LABS: Glucose Point of Care 119 mg/dl (65-105)
[2023-08-18 07:49] LABS: Glucose Point of Care 87 mg/dl (65-105)
[2023-08-18 07:49] LABS: Glucose Point of Care 75 mg/dl (65-105)
== END 2023-10-20 23:59 | disposition home or self-care (01) ==
LOC: ANHCPREHAB 07:15
PROVIDERS: PCP Emergency Medicine; Visit Provider Internal Medicine Cardiovascular Disease
DX: Z95.2 Presence of prosthetic heart valve (principal)
CPT/HCPCS: 36415; 80048; 85025; 93798

== ENCOUNTER 2023-10-21 13:05 | Inpatient (IN) | payer MEDICARE, SELFPAY ==
[2023-10-21] VITALS (23 sets, daily range): BP systolic 77–128; BP diastolic 36–84; PULSE 59–82; RESP 16–22; TEMP 36.4–36.6; O2SAT 98–100; BMI 32.2
--- NOTE | ~2023-10-21 | US_ITS ---
US breast LT complete DATE: 10/23/2023 09:51 INDICATION: Asymmetric left greater than right gynecomastia reported on October 21, 2023 CT abdomen p enrique TECHNIQUE: Real-time imaging and color flow imaging of left breast COMPARISON: October 21, 2023 CT abdomen pelvis FINDINGS: Fibroglandular stroma is noted in the subareolar area of the left breast, consistent with C T-documented gynecomastia. No suspicious mass or shadowing or suspicious vascularity is evident. IMPRESSION: BI-RADS Category 2: Benign; bilateral gynecomastia, left greater than right Reviewed, dictated and finalized at Location A. Reviewed, dictated and finalized at location A. EL TRAFFIC OFFICER IMPRESSION: BI-RADS Category 2: Benign; bilateral gynecomastia, left greater th an right
--- NOTE | ~2023-10-21 | XR_ITS ---
EXAMINATION: XR chest 1V Exam Date/Time: 10/21/2023 17:00 DIRECTOR BUSINESS SYSTEMS HISTORY: sob N/V/D SINCE JUNE Comparison: 05/06/2023. RESULT: Lines, tubes, and devices: Cardiac valve replacement. Lungs and pleura: Increased visibility of the minor fissure, lungs otherwise clear. Cardiomediastinal silhouette: Stable. Other: No acute osseous or upper abdominal finding. IMPRESSION: Minor fissure scar/fluid, possible trace right pleural effusion. Reviewed, dictated and finalized at location K. [employer]
--- NOTE | ~2023-10-21 | CT_ITS ---
EXAMINATION: CT abdomen pelvis w con DATE: 10/21/2023 16:59 INDICATION: diffuse abdominal pain, vomiting TECHNIQUE: Computed tomography (CT) of the abdomen and pelvis was performed with 100 mL Omnipaque-350 intravenous contrast. Automated exposure control and iterative reconstruction technique were employe d. The dose-length product was 1297.91 mGy-cm. COMPARISON: None. FINDINGS: Lower thorax: Asymmetric gynecomastia, larger on the left. Coronary artery calcifications. Aortic [place] ve replacement. Granulomatous pulmonary and mediastinal calcifications. Bibasilar scar/atelectasis. S mall right pleural fluid collection Liver: Small liver, nodular border. Recanalized umbilical vein. Biliary/Gallbladder: Cholelithiasis. No bile duct dilation. Pancreas: No mass or duct dilation. Spleen: Normal. Adrenals:No mass. Kidneys: Cortical thinning. Simple right lower pole cyst. Bilateral nonobstructing calculi. No suspic ious mass or hydronephrosis. GI tract: Small hiatal hernia, mild esophageal and gastric wall edema. Wall edema in the right colon, likely related to cirrhosis. No small or large bowel dilation. Normal appendix. Mesentery/Peritoneum: Large volume ascites. Retroperitoneum: No mass. Pelvis: Pelvic organs are within normal limits. Soft Tissues: Moderate body wall edema. Prominent superficial periumbilical vessels, may represent th e caput medusae sign clinically. Bones: No acute osseous finding. IMPRESSION: Asymmetric gynecomastia. Recommend referral for left breast ultrasound and mammography. Cirrhosis with portal hypertension. Large volume ascites. Moderate body wall edema. Reviewed, dictated and finalized at location K. RAL MEDIATOR IMPRESSION: Asymmetric gynecomastia. Recommend referral for left breast ultrasound and mamm ography. Cirrhosis with portal hypertension. Large volume ascites. Moderate body wall edema.
[2023-10-21 13:49] LABS: Basophils Percent Auto 0.5 % (0.2-1.2); Eosinophils Percent Auto 0.1 % (0-4.4); Hematocrit 23.6 % (42.0-52.0); Hemoglobin 7.6 g/dL (14.0-18.0); Immature Granulocyte Absolute 0.03 K/mm3 (0.00-0.031); Immature Granulocyte Percent A 0.4 % (0-0.5); Lymphocytes Absolute Auto 1.62 K/mm3 (0.9-3.2); Lymphocytes Percent Auto 20.4 % (18.3-44.2); Mean Corpuscular HGB Conc 32.2 g/dl (32-36); Mean Corpuscular Volume 93.3 fl (80-100); Mean Platelet Volume 11.6 fl (7.4-10.4); Monocytes Absolute Auto 0.5 K/mm3 (0.1-0.6); Monocytes Percent Auto 6.3 % (2.6-8.5); Neutrophils Absolute Auto 5.8 K/mm3 (1.3-6.7); Neutrophils Percent Auto 72.3 % (45.5-73.1); Platelet Count Result 180 k/mm3 (150-375); Red Blood Count 2.53 M/mm3 (4.6-6.20); Red Cell Distribution Width 23.1 % (11.5-14.5)
[2023-10-21 14:00] LABS: Alanine Aminotransferase 25 U/L (6-50); Albumin Level 2.6 g/dL (3.5-5.1); Alkaline Phosphatase 159 U/L (38-126); Anion Gap 5 mmol/L (8-16); Aspartate Amino Transferase 37 U/L (17-59); Bilirubin,Total 0.9 mg/dL (0.2-1.3); Blood Urea Nitrogen 23 mg/dL (9-20); Calcium 8.3 mg/dL (8.4-10.2); Carbon Dioxide 25 mmol/L (22-30); Chloride 101 mmol/L (98-107); Estimated CRCL calculation 57 ml/min; Estimated Glomerular Filt Rate > 60; Glucose 111 mg/dL (65-110); Lipase 63 U/L (23-300); Potassium 2.9 mmol/L (3.4-5.0); Sodium 131 mmol/L (137-145)
[2023-10-21 14:23] LABS: Anisocytosis 1+ (NORMAL); Ovalocytes 1+ (NORMAL); Platelet Estimate Adequate (Adequate); Schistocytes None Seen (NORMAL); Target Cells 1+ (NORMAL)
[2023-10-21] MEDS: SODIUM CHLORIDE 0.9% IV 1,000 ML 999 ML IV CONT ×2 (15:48→16:38)
[2023-10-21] MEDS: ONDANSETRON INJ 4 MG/2 ML VIAL IV PUSH (15:49)
--- NOTE | 2023-10-21 16:26 | ED.NAVMDI ---
HPI - Nausea/Vomiting/Diarrhea General Chief complaint: Nausea/Vomiting/Diarrhea Stated complaint: NVD Time Seen by Provider: 10/21/23 15:06 History of Present Illness HPI Narrative: patient is a 78-year-old male with a history of aortic valve replacement on Eliquis, CHF, diabetes, hypertension presenting with nausea and vomiting. Patient states that this is actually been a problem since his aortic valve replacement approximately 4 months ago. States that he has had a lot of diarrhea and it is difficult for him to eat. Feels that it is difficult to swallow and he is sometimes nauseated. Complains of diffuse abdominal pain. He saw his PCP yesterday who ordered the referral to Gastroenterology. Patient states that today he was so weak that he could barely walk so he came in for evaluation. States that he gets short of breath even just walking out to the car though this has been ongoing for several months. No fevers or chills, chest pain, dysuria, hematuria. Does complain of intermittent arm and leg swelling. Related Data Home Medications Medication Instructions Recorded Confirmed apremilast 30 mg tablet (Otezla) 30 mg PO BID 01/13/23 10/22/23 bumetanide 1 mg tablet 1 mg PO DAILY 06/16/23 10/22/23 clopidogrel 75 mg tablet 75 mg PO DAILY 06/16/23 10/22/23 apixaban 5 mg tablet (Eliquis) 5 mg PO BID 08/19/23 10/22/23 vitamin B complex 1 tablet PO QPM 08/19/23 10/22/23 empagliflozin 10 mg tablet 10 mg PO DAILY 10/22/23 10/22/23 (Jardiance) insulin glargine 100 unit/mL (3 56 unit subcut QAM 10/22/23 10/22/23 mL) subcutaneous pen (Basaglar KwikPen U-100 Insulin) losartan 100 mg tablet 100 mg PO DAILY 10/22/23 10/22/23 pravastatin 40 mg tablet 40 mg PO DAILY 10/22/23 10/22/23 Allergies Allergy/AdvReac Type Severity Reaction Status Date / Time venom-honey bee Allergy Intermediate Swelling Verified 10/23/23 11:29 pantoprazole AdvReac Intermediate Nausea and Verified 10/23/23 11:29 Vomiting Review of Systems Review of Systems: All systems reviewed & are unremarkable except as noted in HPI and below PMFSH Past Medical History Medical History Chronic anticoagulation Patient takes rivaroxaban for stroke prophylaxis given persistent atrial fibrillation. Diabetic peripheral neuropathy Essential hypertension Generalized osteoarthritis Hernia (~1989) History of kidney stones Hyperlipidemia Inflammatory arthritis Insulin dependent type 2 diabetes mellitus Hemoglobin A1c was 7.7% on 12/28/2020. Kidney stone (~1976) Moderate aortic valve stenosis Nonrheumatic moderate aortic stenosis noted on echocardiogram on 11/28/2020 with a valve area of 1.08 cm2. Moderate pulmonary hypertension Estimated peak RVSP 48 mmHg on echo on 11/28/2020. Persistent atrial fibrillation Psoriasis Surgical History Surgical History History of bilateral cataract extraction History of eye surgery Retinal surgery due to wrinkling. History of heart valve replacement (~06/15/23) History of loop recorder times 2 since removed History of surgery on arm Left upper extremity tendon repair. History of ventral hernia repair Family History Family History Father , 70 -- Diabetes cause of Diabetes mellitus Hypertension Mother , 35 -- [place] Brain bleed Hypertension Social History Social History Social History: Surrogate decision maker: Olivia Jewell, spouse. He has 3 children. Code status: Full code. Smoking packs per day: 2 Smoking cigarettes per day: 40.0 Years smoked: 5 Smoking pack-years: 10.00 Smoking status: Former smoker Tobacco type: cigarettes Additional smoking assessment comments: smoke as a teenager Alcohol intake: never Substance use: never Substance use typ
[2023-10-21 17:01] LABS: NT Pro B Type Natriuretic Pept 2410 pg/mL (19.9-100); Troponin I < 0.012 ng/mL (0.000-0.034)
--- NOTE | 2023-10-21 18:26 | ECG_ITS ---
Measurements Intervals [place] Rate: 74 P: NE: 0 QRS: -44 QRSD: 143 T: 0 QT: 448 QTc: 498 Interpretive Statements ATRIAL FIBRILLATION LEFT AXIS DEVIATION [QRS AXIS < -30] RIGHT BUNDLE BRANCH BLOCK [120+ ms QRS DURATION, UPRIGHT V1, 40+ ms S IN I/aVL/V4/V5/V6] COMPARED TO ECG 01/13/2023 07:36:09 NO SIGNIFICANT CHANGES Electronically Signed On 10-22-2023 15:04:56 IDENTITY MANAGEMENT CONSULTANT by Johana Vega M.D.
[2023-10-21 18:50] LABS: Troponin I < 0.012 ng/mL (0.000-0.034)
--- NOTE | 2023-10-21 18:55 | PC.NURSE ---
Pt denies any nausea at this time. Resting with family at bedside. Report to Álvaro PETE
[2023-10-21 19:19] LABS: Appearance Urine Clear (Clear); Bacteria Urine None Seen /hpf; Bilirubin Urine Negative (Negative); Blood Urine 1+ (Negative); Color Urine Yellow (Yellow); Glucose Urine UA 1+ mg/dL (Negative); Ketones Urine Negative (Negative); Leukocyte Esterase Ur Trace LEU/UL (Negative); Need Manual Microscopic Reviewed; Nitrate Urine Negative (Negative); Protein Urine Negative (Negative); Squamous Epithelial Cell Urine None seen /hpf (Few); Urobilinogen Urine 0.2 mg/dL (<2.0); WBC Urine 21-50 /hpf; pH Urine 5.5 (5.0-9.0)
[2023-10-21 19:20] LABS: Add Urine Microscopic? YES; Specific Grav Ur 1.059 (1.001-1.035)
[2023-10-21] MEDS: FAMOTIDINE 20 MG/2 ML VIAL IV PUSH (21:27)
[2023-10-21] MEDS: POTASSIUM CHLORIDE INJ 40 MEQ in SODIUM CHLORIDE 0.9% IV 500 ML 130 MEQ IVPB (21:27)
[2023-10-22] VITALS (18 sets, daily range): BP systolic 112–127; BP diastolic 43–61; PULSE 66–86; RESP 18–20; TEMP 36.2–36.6; O2SAT 100; BMI 32.2
[2023-10-22 00:16] LABS: Glucose Point of Care 104 mg/dl (65-105)
--- NOTE | 2023-10-22 00:22 | ADMGEN ---
This patient, Damir Jewell, was admitted to IMU Room 231-01. Patient/family oriented to hospital policies and general routines including ID bracelet, bed and alarms, visiting hours, pain management, procedures, bathroom and other care routines, personal items, smoking policy, room service/diet, and visiting hours. Information on how to activate the Rapid Response Team has been discussed. Patient/Family are encouraged to report perceived risks to care and to ask questions if they do not understand what they are told or what they should do.
--- NOTE | 2023-10-22 16:14 | WPDGICN ---
Assessment and Plan Assessment and plan (1) Dysphagia: Code(s): R13.10 - Dysphagia, unspecified Status: Acute Assessment and Plan: he states that he has difficulty D with eating ever since his surgery. Food seems to get caught up I. Even liquids do not always go down. His appetite however is good. He had been referred to our practice by primary care physician when he was seen by him Friday. He also had been given referrals for possible endoscopy and barium swallow. His apixaban has been held. I will schedule him for EGD to be done tomorrow. I told that he may need esophageal dilatation. It does not sound as though he is aspirating and for now I think we can hold off on the modified barium swallow. (2) Anasarca: Code(s): R60.1 - Generalized edema Status: Acute Assessment and Plan: He has generalized edema and he states that this has been getting progressively worse for the past couple of months. (3) Heart disease: Code(s): I51.9 - Heart disease, unspecified Status: Acute Assessment and Plan: He has known coronary artery disease and he has had an aortic valve replacement about 4 months ago. (4) Persistent atrial fibrillation: Code(s): I48.19 - Other persistent atrial fibrillation Status: Chronic Assessment and Plan: He is chronically anticoagulated. (5) Chronic anticoagulation: Code(s): Z79.01 - termite control technician (current) use of anticoagulants Status: Chronic Assessment and Plan: Takes apixaban 5 mg b.i.d.. This has been held since admission (6) Ascites: Code(s): R18.8 - Other ascites Status: Acute Assessment and Plan: he was not aware of having ascites nor was he were of having liver disease. CT scan of the abdomen reveals: Lower thorax: Asymmetric gynecomastia, larger on the left. Coronary artery calcifications. Aortic valve replacement. Granulomatous pulmonary and mediastinal calcifications. Bibasilar scar/atelectasis. Small right pleural fluid collection Liver: Small liver, nodular border. Recanalized umbilical vein. Biliary/Gallbladder: Cholelithiasis. No bile duct dilation. Pancreas: No mass or duct dilation. Spleen: Normal. Adrenals:No mass. Kidneys: Cortical thinning. Simple right lower pole cyst. Bilateral nonobstructing calculi. No suspicious mass or hydronephrosis. GI tract: Small hiatal hernia, mild esophageal and gastric wall edema. Wall edema in the right colon, likely related to cirrhosis. No small or large bowel dilation. Normal appendix. Plan will hold anticoagulation. Will schedule EGD for tomorrow. He may need esophageal dilatation he will ultimately need evaluation of his liver disease. It could be from chronic passive congestion due to heart failure but that cannot be assumed. He denies excessive Or regular use of alcohol. GI Consult Note Consult date/time: 10/22/23 16:14 HPI: Damir Jewell is a 78 year old male With several medical problems. He had an aortic valve replaced last June and is on Eliquis. He has a history of congestive heart failure. He presented because of nausea vomiting and diarrhea and states that he also has been having difficult time eating for the past several months. He feels that he cannot swallow and that this began after his surgery. His primary care physician saw him on Friday of this week and had ordered outpatient studies and referral to Gastroenterology but the patient came in because he is feeling weaker. He is also note of a great deal of swelling in his arms and legs. CT scan reveals body wall edema, and ascites. He also shows apparent cirrhosis. Patient states that he has never been told that he had liver disease. Review of Systems Review of Systems: All systems reviewed & are unremarkable except as noted in HPI and below PMFSH Past Medical History Medical History Chronic antic
--- NOTE | 2023-10-22 18:08 | PM.IMHP ---
H&P: HPI History of Present Illness Date/Time: 10/22/23 18:08 Chief Complaint: 1. Nausea 2. Vomiting 3. Diarrhea 4. Fatigue; Malaise Narrative: Damir Jewell is a 78 yo M with a mHx significant for aortic valve replacement on Eliquis, CHF, diabetes, hypertension? presenting with nausea and vomiting. ? He states that this is actually been a problem since his? aortic valve replacement approximately 4 months ago.? He has had a lot of non-bloody diarrhea and it is difficult for him to eat.? Feels that it is difficult to swallow and he is sometimes nauseated.? Complains of diffuse abdominal pain.? He saw his PCP yesterday who ordered the referral to Gastroenterology for possible EGD.? Patient states that today he was so weak that he could barely walk so he came in for evaluation.? He gets short of breath even with minimal activity; this has been ongoing for several months.? No fevers or chills, chest pain, dysuria, hematuria.? Does complain of intermittent arm and leg swelling. He does not smoke/chew tobacco, drink alcohol or consume recreational drugs; his family Hx is not contributory to the PC Work-up findings: Na 131 K 3.4 Cl 102 HCO3 22 AG 7 BUN 23 Cr 1.1 GFR 53 AST 37 ALT 24 ALP 121 Troponin <0.012 UA: +Trace LE; 21-50 WBC CXR: Minor fissure scar/fluid, possible trace right pleural effusion. CTAP: Asymmetric gynecomastia. Recommend referral for left breast ultrasound and mammography. Cirrhosis with portal hypertension. Large volume ascites. Moderate body wall edema. He will be admitted, evaluated and managed for dysphagia, nausea, vomiting, physical deconditioning. Review of Systems Constitutional: Constitutional: Reports body ache(s), Reports fatigue and Reports lethargy Eyes: Eyes: Reports no additional eye complaints ENT: Denies epistaxis, Denies nasal discharge and Denies tinnitus Cardiovascular: Cardiovascular: Denies chest pain, Denies pedal edema and Denies lightheadedness Respiratory: Respiratory: Denies chest congestion, Denies cough and Denies dyspnea on exertion Gastrointestinal: Gastrointestinal: Denies hematochezia, Reports diarrhea, Reports nausea and Reports vomiting Genitourinary: Genitourinary: Reports no additional male genitourinary complaints, Denies urinary frequency and Denies urinary hesitancy Musculoskeletal: Musculoskeletal: Denies arthralgias and Denies joint swelling Integumentary/Breasts: Skin/Breast: Reports system reviewed and no additional complaints, except as docu, Reports breast mass (Left gynecomastia) and Denies dry skin Neurologic: Denies Abnormal speech present, Denies abnormal gait, Denies confusion and Denies headache(s) Psychiatric: Psychiatric: Reports no additional psychiatric complaints PMFSH Past Medical History Medical History Chronic anticoagulation Patient takes rivaroxaban for stroke prophylaxis given persistent atrial fibrillation. Diabetic peripheral neuropathy Essential hypertension Generalized osteoarthritis Hernia (~1989) History of kidney stones Hyperlipidemia Inflammatory arthritis Insulin dependent type 2 diabetes mellitus Hemoglobin A1c was 7.7% on 12/28/2020. Kidney stone (~1976) Moderate aortic valve stenosis Nonrheumatic moderate aortic stenosis noted on echocardiogram on 11/28/2020 with a valve area of 1.08 cm2. Moderate pulmonary hypertension Estimated peak RVSP 48 mmHg on echo on 11/28/2020. Persistent atrial fibrillation Psoriasis Surgical History Surgical History History of bilateral cataract extraction History of eye surgery Retinal surgery due to wrinkling. History of heart valve replacement (~06/15/23) History of loop recorder times 2 since removed History of surgery on arm Left upper extremity tendon repair. History of ventral hernia repair Family History Family History (Reviewed 10/22/23 @ 16:20 by Pamela
[2023-10-22 18:14] LABS: Alanine Aminotransferase 24 U/L (6-50); Albumin Level 2.4 g/dL (3.5-5.1); Alkaline Phosphatase 121 U/L (38-126); Anion Gap 7 mmol/L (8-16); Aspartate Amino Transferase 37 U/L (17-59); Bilirubin,Total 0.9 mg/dL (0.2-1.3); Blood Urea Nitrogen 23 mg/dL (9-20); Calcium 7.9 mg/dL (8.4-10.2); Carbon Dioxide 22 mmol/L (22-30); Chloride 102 mmol/L (98-107); Estimated CRCL calculation 53 ml/min; Estimated Glomerular Filt Rate > 60; Glucose 121 mg/dL (65-110); Potassium 3.4 mmol/L (3.4-5.0); Sodium 131 mmol/L (137-145)
[2023-10-22] MEDS: FUROSEMIDE INJ 40 MG/4 ML VIAL 20 MG IV PUSH (19:09)
[2023-10-22] MEDS: FAMOTIDINE 20 MG/2 ML VIAL IV PUSH (20:23)
[2023-10-22 21:06] LABS: Glucose Point of Care 99 mg/dl (65-105)
[2023-10-23] VITALS (23 sets, daily range): BP systolic 102–126; BP diastolic 42–67; PULSE 64–78; RESP 14–20; TEMP 36.1–36.6; O2SAT 99–100
--- NOTE | 2023-10-23 | ECHO_ITS ---
Patient Info Name: Damir Jewell Age: 78 years : 1945 Gender: Male Ht: 66 in Wt: 190 lbs BSA: 2.03 m2 HR: 74 bpm BP: 111 / 45 mmHg Heart Rhythm: Atrial Fibrillation Technical Quality: Good Exam Date: 10/23/2023 10:28 AM Exam Location: Echo Lab Patient Status: Inpatient Admit Date: 10/21/2023 Staff Ordering Physician: Douglas Guerra MD Visual Arts Teacher: Tabitha Gan RDCS Attending Provider: Glenna Talley MD Referring Physician: Mari TURCIOS; Exam Type: CA echo dop color flow w con Study Info Indications - sob Complete two-dimensional, color flow and Doppler transthoracic echocardiogram is performed with contrast to opacify the left ventricle and to improve the deliniation of the left ventricle endocardial borders. Contrast/Agitated Saline Contrast/Ag. Saline: Definity Amount: 3.00 ml Summary 1. Left ventricular chamber dimension is normal. 2. Left ventricular systolic function is normal, estimated at >70%. 3. Right ventricular systolic function is normal. 4. Left atrial chamber dimension is mildly enlarged. 5. Known history of TAVR. Mean gradient of 7mmHg. 6. There is trace aortic valve regurgitation. Left Ventricle Left ventricular chamber dimension is normal. Left ventricular systolic function is normal, estimated at >70%. There is no increased left ventricular wall thickness. Right Ventricle Right ventricular chamber dimension is normal. Right ventricular systolic function is normal. Left Atria Left atrial chamber dimension is mildly enlarged. Right Atria Right atrial chamber dimension is normal. Atrial Septum Intact interatrial septum visualized by color flow imaging. Aortic Valve Known history of TAVR. Mean gradient of 7mmHg. There is trace aortic valve regurgitation. Pulmonic Valve The pulmonic valve is not well visualized. Mitral Valve There is trace mitral valve regurgitation. Tricuspid Valve There is trace tricuspid valve regurgitation. Pericardium/Pleural There is no pericardial effusion. Inferior Vena Cava Inferior vena cava is not well visualized. Aorta The aortic root size at the sinus of Valsalva is normal. Left Ventricular Outflow Tract Name Value Normal LVOT 2D LVOT Diameter 1.88 cm LVOT Doppler LVOT Peak Gradient 6 mmHg LVOT Mean Gradient 4 mmHg LVOT VTI 30.92 cm LVOT VTI/AV VTI Ratio 0.75 LVOT Stroke Volume 86.14 ml LVOT CO 5.18 l/min LVOT CI 2.55 L/min/m2 Pulmonic Valve Name Value Normal RVOT Doppler RVOT Peak Gradient 3 mmHg PV Doppler PV Peak Gradient 6 mmHg Mitral Valve
[2023-10-23 06:07] LABS: Basophils Absolute Auto 0.1 K/mm3 (0.0-0.1); Basophils Percent Auto 0.7 % (0.2-1.2); Eosinophils Absolute Auto 0.1 K/mm3 (0-0.3); Eosinophils Percent Auto 1.8 % (0-4.4); Immature Granulocyte Absolute 0.02 K/mm3 (0.00-0.031); Immature Granulocyte Percent A 0.3 % (0-0.5); Lymphocytes Percent Auto 22.3 % (18.3-44.2); Mean Corpuscular HGB Conc 32.2 g/dl (32-36); Mean Corpuscular Hemoglobin 30.5 pg (26-34); Mean Corpuscular Volume 94.8 fl (80-100); Mean Platelet Volume 11.8 fl (7.4-10.4); Monocytes Absolute Auto 0.7 K/mm3 (0.1-0.6); Monocytes Percent Auto 8.5 % (2.6-8.5); Neutrophils Absolute Auto 5.1 K/mm3 (1.3-6.7); Neutrophils Percent Auto 66.4 % (45.5-73.1); Platelet Count Result 171 k/mm3 (150-375); Red Blood Count 2.13 M/mm3 (4.6-6.20); Red Cell Distribution Width 23.7 % (11.5-14.5); White Blood Count 7.6 K/mm3 (4.5-10.0)
[2023-10-23 06:20] LABS: Anion Gap 1 mmol/L (8-16); Blood Urea Nitrogen 23 mg/dL (9-20); Calcium 7.7 mg/dL (8.4-10.2); Carbon Dioxide 26 mmol/L (22-30); Chloride 105 mmol/L (98-107); Estimated CRCL calculation 49 ml/min; Estimated Glomerular Filt Rate 59; Glucose 79 mg/dL (65-110); Potassium 3.4 mmol/L (3.4-5.0); Sodium 132 mmol/L (137-145)
[2023-10-23 06:24] LABS: Hemoglobin 6.5 g/dL (14.0-18.0)
[2023-10-23 06:25] LABS: Hematocrit 20.2 % (42.0-52.0)
[2023-10-23 07:31] LABS: Anisocytosis 2+ (NORMAL); Hypochromasia 1+ (NORMAL)
[2023-10-23 07:32] LABS: Schistocytes Rare (NORMAL)
[2023-10-23 07:46] LABS: Platelet Estimate Adequate (Adequate)
[2023-10-23 08:03] LABS: Glucose Point of Care 79 mg/dl (65-105)
[2023-10-23] MEDS: FAMOTIDINE 20 MG/2 ML VIAL IV PUSH (09:04)
--- NOTE | 2023-10-23 10:32 | PCPTNOTE ---
Attempted to see patient for PT, however patient was unavailable due to getting an echo in his room.
--- NOTE | 2023-10-23 10:56 | P.CDI_ITS ---
CDI Query Clarification Request BMI 32.2 Nutritional Diagnostic Statement Severe protein calorie malnutrition related to chronic loss of appetite post surgery as evidenced by weight loss 12%/4 months; inadequate intake < 75% needs >1 month; muscle wasting to clavicles, temporalis,shoulder, knee and fat loss to cheeks. Please refer to the comprehensive nutrition assessment for further information. Please clarify severity of protein calorie malnutrition is known: * Mild * Moderate * Severe * Other/Unspecified <Deepa Chen RN - Last Filed: 10/23/23 11:01> Clarified Diagnosis Clarified Diagnosis: Severe protein calorie malnutrition <Douglas Guerra MD - Last Filed: 10/23/23 17:53> Provider Comments Severe protein calorie malnutrition <Douglas Guerra MD - Last Filed: 10/23/23 17:53>
[2023-10-23] MEDS: PERFLUTREN LIPID MICROSPHERES 1.5 ML VIAL DILUTED TO 10 ML TOTAL VOLUME IV PUSH (11:09)
--- NOTE | 2023-10-23 11:10 | IVDEFINITY ---
Prior to administration of IV Definity the patient was educated on the risks and benefits of the imaging enhancing agent including potential adverse side effects. The patient verbalized understanding. Allergies were verified. No exclusion criteria were identified and at least one of the following inclusion criteria were met: 1) physician request, 2) patient technically difficult to image (per the [place] [employer]chocardi[employer] guidelines of two or more segments not discernable within the apical view), or 3) questionable left ventricular function. ?
[2023-10-23] MEDS: AMPICILLIN 2 GM/NS 100 ML 2 GM/100 ML BAG IVPB (11:13)
--- NOTE | 2023-10-23 11:13 | WPDANESEPPF ---
Anes - Initial Pre Proc Eval Procedure: Operation Date: 10/23/23 12:00 Proposed Procedures p Esophagogastroduodenoscopy EGD - Wayne Adams MD Date/Time: 10/23/23 11:13 Surgeon: Glenna Talley MD Pre Op Diagnosis: Hypokalemia, Failure to Thrive Patient Data Age: 78 Gender: M Height: 1.68 m Weight: 90.5 kg Last Vital Signs Temp 97.5 F L 10/23/23 08:00 Pulse 74 10/23/23 08:00 Resp 20 10/23/23 08:00 BP 105/49 L 10/23/23 08:00 Pulse Ox 100 10/23/23 08:00 O2 Del Method Room Air 10/23/23 04:00 Allergies Allergy/AdvReac Type Severity Reaction Status Date / Time venom-honey bee Allergy Intermediate Swelling Verified 08/19/23 11:45 pantoprazole AdvReac Intermediate Nausea and Verified 08/19/23 11:45 Vomiting Home Medications Medication Instructions Recorded Confirmed Type apremilast 30 mg tablet (Otezla) 30 mg PO BID 01/13/23 10/22/23 History bumetanide 1 mg tablet 1 mg PO DAILY 06/16/23 10/22/23 History clopidogrel 75 mg tablet 75 mg PO DAILY 06/16/23 10/22/23 History apixaban 5 mg tablet (Eliquis) 5 mg PO BID 08/19/23 10/22/23 History vitamin B complex 1 tablet PO QPM 08/19/23 10/22/23 History cholecalciferol (vitamin D3) 1,250 1,250 mcg PO WEEKLY #12 caps 10/17/23 10/22/23 Rx mcg (50,000 unit) capsule potassium chloride 20 mEq 20 meq PO BID #8 tabs 10/17/23 10/22/23 Rx tablet,extended release empagliflozin 10 mg tablet 10 mg PO DAILY 10/22/23 10/22/23 History (Jardiance) insulin glargine 100 unit/mL (3 56 unit subcut QAM 10/22/23 10/22/23 History mL) subcutaneous pen (Basaglar KwikPen U-100 Insulin) losartan 100 mg tablet 100 mg PO DAILY 10/22/23 10/22/23 History pravastatin 40 mg tablet 40 mg PO DAILY 10/22/23 10/22/23 History Laboratory Tests 10/22/23 10/22/23 10/23/23 17:54 20:34 05:13 WBC 7.6 K/mm3 (4.5-10.0) RBC 2.13 L M/mm3 (4.6-6.20) Hgb 6.5 L* g/dL (14.0-18.0) Hct 20.2 L* % (42.0-52.0) MCV 94.8 fl (80-100) MCH 30.5 pg (26-34) MCHC 32.2 g/dl (32-36) RDW 23.7 H % (11.5-14.5) Plt Count 171 k/mm3 (150-375) MPV 11.8 H fl (7.4-10.4) Immature Gran % (Auto) 0.3 % (0-0.5) Neut % (Auto) 66.4 % (45.5-73.1) Lymph % (Auto) 22.3 % (18.3-44.2) [place] % (Auto) 8.5 % (2.6-8.5) Eos % (Auto) 1.8 % (0-4.4) Baso % (Auto) 0.7 % (0.2-1.2) Lymph # (Auto) 1.70 K/mm3 (0.9-3.2) [place] # (Auto) 0.7 H K/mm3 (0.1-0.6) Eos # (Auto) 0.1 K/mm3 (0-0.3) Baso # (Auto) 0.1 K/mm3 (0.0-0.1) Abs Immat Gran (auto) 0.02 K/mm3 (0.00-0.031) Absolute Neuts (auto) 5.1 K/mm3 (1.3-6.7) Absolute Nucleated RBC 0.0 K/mm3 (0.0-0.012) Nucleated RBC % 0.0 % (0.0-0.2) Platelet Estimate Adequate (Adequate) Hypochromasia 1+ (NORMAL) Anisocytosis 2+ (NORMAL) Schistocytes Rare (NORMAL) Sodium 131 L mmol/L 132 L mmol/L (137-145) (137-145) Potassium 3.4 mmol/L 3.4 mmol/L (3.4-5.0) (3.4-5.0) Chloride 102 mmol/L 105 mmol/L (98-107) (98-107) Carbon Dioxide 22 mmol/L 26 mmol/L (22-30) (22-30) Anion Gap 7 L mmol/L 1 L mmol/L (8-16) (8-16) BUN 23 H mg/dL 23 H mg/dL (9-20) (9-20) Creatinine 1.10 mg/dL 1.20 mg/dL (0.7-1.3) (0.7-1.3) Estim Creat Clear Calc 53 ml/min 49 ml/min Estimated GFR > 60 59 (59 - ) (59 - ) Glucose 121 H mg/dL 79 mg/dL (65-110) (65-110) POC Capillary Glucose 99 mg/dl (65-105) Calcium 7.9 L mg/dL 7.7 L mg/dL (8.4-10.2) (8.4-10.2) Total Bilirubin 0.9 mg/dL (0.2-1.3) AST 37 U/L (17-59) ALT 24 U/L (6-50) Alkaline Phosphatase 121 U/L (38-126) Total Protein 5.0 L g/dL (
[2023-10-23 11:30] LABS: Glucose Point of Care 74 mg/dl (65-105)
[2023-10-23] MEDS: LACTATED RINGERS 1,000 ML 150 ML IV CONT (11:34)
[2023-10-23] MEDS: GENTAMICIN 80MG/SOD CHL 50 ML 80 MG/50 ML BAG 100 MG IVPB (11:49)
[2023-10-23 12:16] LABS: Glucose Point of Care 77 mg/dl (65-105)
--- NOTE | 2023-10-23 15:22 | PCPTNOTE ---
Attempted to see patient for PT, however patient's hemoglobin is 6.5, and patient reported not feeling well and di not feel he could do PT. Patient not seen for this reason.
[2023-10-23 16:14] LABS: Glucose Point of Care 118 mg/dl (65-105)
[2023-10-23] MEDS: PRAVASTATIN SODIUM 20 MG TABLET 40 MG PO (17:06)
[2023-10-23] MEDS: FUROSEMIDE INJ 40 MG/4 ML VIAL 20 MG IV PUSH (17:07)
--- NOTE | 2023-10-23 17:54 | PM.IMPN ---
Progress Note: A&P Assessment and Plan (1) Diarrhea: Code(s): R19.7 - Diarrhea, unspecified Status: Acute Assessment and Plan: Stable; Acute Monitor (2) Dysphagia: Code(s): R13.10 - Dysphagia, unspecified Status: Acute Assessment and Plan: Acute; with nausea and vomiting GI on board; for EGD tomorrow (3) Hypokalemia: Code(s): E87.6 - Hypokalemia Status: Acute Assessment and Plan: Replete and monitor (4) HLD (hyperlipidemia): Code(s): E78.5 - Hyperlipidemia, unspecified Status: Acute Assessment and Plan: Chronic; Stable resume statin (5) Insulin dependent type 2 diabetes mellitus: Code(s): E11.9 - Type 2 diabetes mellitus without complications; Z79.4 - superintendent terminal (current) use of insulin Status: Chronic Assessment and Plan: Basal+Correctional insulin (6) Persistent atrial fibrillation: Code(s): I48.19 - Other persistent atrial fibrillation Status: Chronic Assessment and Plan: Chronic; Hold Eliquis (7) Gynecomastia, male: Code(s): N62 - Hypertrophy of breast Status: Acute Assessment and Plan: US of Left breast (8) Cirrhosis of liver: Code(s): K74.60 - Unspecified cirrhosis of liver Status: Acute Assessment and Plan: GI on board; (9) Ascites of liver: Code(s): R18.8 - Other ascites Status: Acute Assessment and Plan: GI on board; Lasix May need paracentesis (10) Esophageal ulcer without bleeding: Code(s): K22.10 - Ulcer of esophagus without bleeding Status: Acute Assessment and Plan: Per EGD, 10/23/23 Shows non-bleeding esophageal ulcers Plan: PPI BID f/u with Dr. Wayne Adams EGD in 2 monhts (11) Acute blood loss anemia: Code(s): D62 - Acute posthemorrhagic anemia Status: Acute Assessment and Plan: Maybe 10/17 GIB 10/23/23: Will transfuse 2U PRBC (12) Physical deconditioning: Code(s): R53.81 - Other malaise Status: Acute Assessment and Plan: PT/OT eval and Rx Time Spent With Patient Time with patient: 25 - 35 minutes Subjective Date/time seen: 10/23/23 17:54 Interval history: Seen and examined; Denies fresh concerns; feels he is improving Review of Systems Constitutional: Constitutional: Reports body ache(s), Reports fatigue, Denies headache(s) and Reports lethargy Eyes: Eyes: Reports no additional eye complaints ENT: Denies headache(s), Denies epistaxis, Denies nasal discharge and Denies tinnitus Cardiovascular: Cardiovascular: Denies chest pain, Denies pedal edema, Denies lightheadedness and Denies dyspnea on exertion Respiratory: Respiratory: Denies chest congestion, Denies cough and Denies dyspnea on exertion Gastrointestinal: Gastrointestinal: Denies hematochezia, Reports diarrhea, Reports nausea and Reports vomiting Genitourinary: Genitourinary: Reports no additional male genitourinary complaints, Denies urinary frequency and Denies urinary hesitancy Musculoskeletal: Musculoskeletal: Denies abnormal gait, Denies arthralgias and Denies joint swelling Integumentary/Breasts: Skin/Breast: Reports system reviewed and no additional complaints, except as docu, Reports breast mass (Left gynecomastia) and Denies dry skin Neurologic: Denies Abnormal speech present, Denies abnormal gait, Denies confusion and Denies headache(s) Psychiatric: Psychiatric: Reports no additional psychiatric complaints and Denies confusion Endocrine: Endocrine: Reports fatigue Exam Const: General: comfortable; No confusion Orientation/consciousness: No confusion HENMT: Ears: TM's normal bilaterally Mouth: Yes dry mucous membranes Eyes: General: appearance normal, both eyes and all related structures Neck: Neck: supple Resp: Effort & Inspection: normal respiratory effort Cardio: Rate: regular rate Skin: General skin exam: normal color Neuro: General: gait nor
[2023-10-23 18:23] LABS: Hemoglobin 7.2 g/dL (14.0-18.0); Mean Corpuscular HGB Conc 31.3 g/dl (32-36); Mean Corpuscular Hemoglobin 30.3 pg (26-34); Mean Corpuscular Volume 96.6 fl (80-100); Platelet Count Result 191 k/mm3 (150-375); Red Blood Count 2.38 M/mm3 (4.6-6.20); Red Cell Distribution Width 23.9 % (11.5-14.5); White Blood Count 9.1 K/mm3 (4.5-10.0)
[2023-10-23 18:34] LABS: INR 1.3; Prothrombin Time 16.5 Seconds (11.1-14.7)
[2023-10-23 18:35] LABS: Partial Thromboplastin Time 36.1 SECONDS (22.3-36.8)
[2023-10-23 18:36] LABS: Alanine Aminotransferase 24 U/L (6-50); Albumin Level 2.3 g/dL (3.5-5.1); Alkaline Phosphatase 126 U/L (38-126); Anion Gap 4 mmol/L (8-16); Aspartate Amino Transferase 43 U/L (17-59); Bilirubin,Total 0.7 mg/dL (0.2-1.3); Blood Urea Nitrogen 22 mg/dL (9-20); Carbon Dioxide 25 mmol/L (22-30); Chloride 104 mmol/L (98-107); Estimated CRCL calculation 49 ml/min; Estimated Glomerular Filt Rate 59; Glucose 143 mg/dL (65-110); Magnesium 2.1 mg/dL (1.6-2.3); Potassium 3.3 mmol/L (3.4-5.0); Sodium 133 mmol/L (137-145)
[2023-10-23 18:40] LABS: Fibrinogen 294 mg/dl (215-510)
--- NOTE | 2023-10-23 20:13 | PC.NURSE ---
Spoke with Dr. Guerra about the mass transfusion order. He only wants 2 units of PRBC's to be infused. Unable to cancel the other orders. Called blood bank and they are unable to edit the order as well.
[2023-10-23 20:49] LABS: Glucose Point of Care 131 mg/dl (65-105)
[2023-10-23] MEDS: SODIUM CHLORIDE 0.9% IV 250 ML 30 ML IV CONT (20:58)
[2023-10-23] MEDS: INSULIN GLARGINE (*BKC) 100 UNITS/ML 23 UNITS SUB-Q (20:58)
[2023-10-23] MEDS: APIXABAN 5 MG TABLET PO (20:58)
[2023-10-23] MEDS: FUROSEMIDE 20 MG TABLET PO (20:58)
[2023-10-24] VITALS (16 sets, daily range): BP systolic 116–144; BP diastolic 48–65; PULSE 64–74; RESP 16–20; TEMP 36.1–36.8; O2SAT 98–100
[2023-10-24 05:33] LABS: Basophils Percent Auto 0.4 % (0.2-1.2); Eosinophils Absolute Auto 0.2 K/mm3 (0-0.3); Eosinophils Percent Auto 2.8 % (0-4.4); Hematocrit 28.8 % (42.0-52.0); Hemoglobin 9.3 g/dL (14.0-18.0); Immature Granulocyte Absolute 0.02 K/mm3 (0.00-0.031); Immature Granulocyte Percent A 0.3 % (0-0.5); Lymphocytes Absolute Auto 1.41 K/mm3 (0.9-3.2); Mean Corpuscular HGB Conc 32.3 g/dl (32-36); Mean Corpuscular Hemoglobin 29.9 pg (26-34); Mean Corpuscular Volume 92.6 fl (80-100); Mean Platelet Volume 11.2 fl (7.4-10.4); Monocytes Absolute Auto 0.5 K/mm3 (0.1-0.6); Neutrophils Absolute Auto 4.5 K/mm3 (1.3-6.7); Neutrophils Percent Auto 67.5 % (45.5-73.1); Platelet Count Result 154 k/mm3 (150-375); Red Blood Count 3.11 M/mm3 (4.6-6.20); Red Cell Distribution Width 20.9 % (11.5-14.5); White Blood Count 6.7 K/mm3 (4.5-10.0)
[2023-10-24 05:44] LABS: Anion Gap 1 mmol/L (8-16); Blood Urea Nitrogen 22 mg/dL (9-20); Calcium 7.8 mg/dL (8.4-10.2); Carbon Dioxide 26 mmol/L (22-30); Chloride 106 mmol/L (98-107); Estimated CRCL calculation 54 ml/min; Estimated Glomerular Filt Rate > 60; Glucose 83 mg/dL (65-110); Potassium 3.2 mmol/L (3.4-5.0); Sodium 133 mmol/L (137-145)
[2023-10-24 07:35] LABS: Glucose Point of Care 79 mg/dl (65-105)
[2023-10-24] MEDS: POTASSIUM CHLORIDE 20 MEQ PACKET (FOR LIQUID) 40 MEQ PO ×2 (09:38→18:07)
[2023-10-24] MEDS: APIXABAN 5 MG TABLET PO (09:38)
[2023-10-24] MEDS: FUROSEMIDE INJ 40 MG/4 ML VIAL 20 MG IV PUSH ×2 (09:38→18:07)
--- NOTE | 2023-10-24 10:09 | WPDANESPN ---
Anes - Prog Note Post-Op Date/Time: 10/24/23 10:09 Cardiovascular status: normal Respiratory status: normal Airway patency: baseline Mental status: baseline Post-Op hydration status: normal Vital Signs: Last Vital Signs Temp 36.6 C 10/24/23 07:37 Pulse 64 10/24/23 07:37 Resp 16 10/24/23 07:37 BP 121/65 10/24/23 07:37 Pulse Ox 99 10/24/23 07:37 O2 Del Method Room Air 10/24/23 03:04 Pain Score (VAS): 0 I/O: Intake & Output 10/23/23 10/24/23 10/24/23 23:59 07:59 15:59 Intake Total 1060 350 Output Total 200 Balance 1060 150 Laboratory Tests 10/24/23 05:04 10/24/23 05:04 10/21/23 10/23/23 10/23/23 13:37 11:28 12:14 WBC RBC Hgb Hct MCV MCH MCHC RDW Plt Count MPV Immature Gran % (Auto) Neut % (Auto) Lymph % (Auto) [place] % (Auto) Eos % (Auto) Baso % (Auto) Lymph # (Auto) [place] # (Auto) Eos # (Auto) Baso # (Auto) Abs Immat Gran (auto) Absolute Neuts (auto) Absolute Nucleated RBC Nucleated RBC % PT INR APTT Fibrinogen Sodium Potassium Chloride Carbon Dioxide Anion Gap BUN Creatinine Estim Creat Clear Calc Estimated GFR Glucose POC Capillary Glucose 74 77 Calcium Magnesium Total Bilirubin Direct Bilirubin AST ALT Alkaline Phosphatase Total Protein Albumin Blood Type O Positive Antibody Screen Negative Crossmatch See Detail 10/23/23 10/23/23 10/23/23 16:06 18:13 18:13 WBC 9.1 RBC 2.38 L Hgb 7.2 L Cancelled Hct 23.0 L MCV MCH MCHC RDW Plt Count MPV Immature Gran % (Auto) Neut % (Auto) Lymph % (Auto) [place] % (Auto) Eos % (Auto) Baso % (Auto) Lymph # (Auto) [place] # (Auto) Eos # (Auto) Baso # (Auto) Abs Immat Gran (auto) Absolute Neuts (auto) Absolute Nucleated RBC Nucleated RBC % PT INR APTT Fibrinogen Sodium Potassium Chloride Carbon Dioxide Anion Gap BUN Creatinine Estim Creat Clear Calc Estimated GFR Glucose POC Capillary Glucose 118 H Calcium Magnesium Total Bilirubin Direct Bilirubin AST ALT Alkaline Phosphatase Total Protein Albumin Blood Type Antibody Screen Crossmatch 10/23/23 10/23/23 10/24/23 18:13 19:55 05:04 WBC 6.7 RBC 3.11 L Hgb 9.3 L Hct Cancelled 28.8 L MCV 96.6 92.6 MCH 30.3 29.9 MCHC 31.3 L 32.3 RDW 23.9 H 20.9 H Plt Count 191 154 MPV 11.0 H 11.2 H Immature Gran % (Auto) 0.3 Neut % (Auto) 67.5 Lymph % (Auto) 21.0 [place] % (Auto) 8.0 Eos % (Auto) 2.8 Baso % (Auto) 0.4 Lymph # (Auto) 1.41 [place] # (Auto) 0.5 Eos # (Auto) 0.2 Baso # (Auto) 0.0 Abs Immat Gran (auto) 0.02 Absolute Neuts (auto) 4.5 Absolute Nucleated RBC 0.0 Nucleated RBC % 0.0 PT 16.5 H INR 1.3 APTT 36.1 Fibrinogen 294 Sodium 133 L 133 L Potassium 3.3 L 3.2 L Chloride 104 106 Carbon Dioxide 25 26 Anion Gap 4 L 1 L BUN 22 H 22 H Creatinine 1.20 1.10 Estim Creat Clear Calc 49 54 Estimated GFR 59 > 60 Glucose 143 H 83 POC Capillary Glucose 131 H Calcium 8.0 L 7.8 L Magnesium 2.1 Total Bilirubin 0.7 Direct Bilirubin 0.0 AST 43 ALT 24 Alkaline Phosphatase 126 Total Protein 5.0 L Albumin 2.3 L Blood Type Antibody Screen Crossmatch 10/24/23 07:32 WBC RBC Hgb Hct MCV MCH MCHC RDW Plt Count MPV Immature Gran % (Auto) Neut % (Auto) Lymph % (Auto) [place] % (Auto) Eos % (Auto) Baso % (Auto) Lymph # (Auto) [place] # (Auto) Eos # (Auto) Baso # (Auto) Abs Immat Gran (auto) Absolute Neuts (auto) Absolute Nucleated RBC Nucleated RBC % PT INR APTT Fibrinogen Sodium Potassium Chloride Carbon Dioxide Anion Gap BUN C
[2023-10-24] MEDS: SUCRALFATE SUSP 100 MG/ML 10 ML UDC 1000 MG PO (12:17)
--- NOTE | 2023-10-24 12:20 | WPDGIPROGNO ---
Progress Note: A&P Assessment and Plan (1) Dysphagia: Code(s): R13.10 - Dysphagia, unspecified Status: Acute Assessment and Plan: he states that he has difficulty D with eating ever since his surgery. Food seems to get caught up I. Even liquids do not always go down. His appetite however is good. He had been referred to our practice by primary care physician when he was seen by him Friday. He also had been given referrals for possible endoscopy and barium swallow. His apixaban has been held. I will schedule him for EGD to be done tomorrow. I told that he may need esophageal dilatation. It does not sound as though he is aspirating and for now I think we can hold off on the modified barium swallow. EGD revealed severe ulcerative esophagitis in the distal esophagus with stricture just at the GE junction. The stricture was dilated. Biopsies also were obtained but this does not appear to be malignancy. (2) Anasarca: Code(s): R60.1 - Generalized edema Status: Acute Assessment and Plan: He has generalized edema and he states that this has been getting progressively worse for the past couple of months. (3) Heart disease: Code(s): I51.9 - Heart disease, unspecified Status: Acute Assessment and Plan: He has known coronary artery disease and he has had an aortic valve replacement about 4 months ago. (4) Persistent atrial fibrillation: Code(s): I48.19 - Other persistent atrial fibrillation Status: Chronic Assessment and Plan: He is chronically anticoagulated. 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 This has been held since admission (6) Ascites: Code(s): R18.8 - Other ascites Status: Acute Assessment and Plan: he was not aware of having ascites nor was he were of having liver disease. CT scan of the abdomen reveals: Lower thorax: Asymmetric gynecomastia, larger on the left. Coronary artery calcifications. Aortic valve replacement. Granulomatous pulmonary and mediastinal calcifications. Bibasilar scar/atelectasis. Small right pleural fluid collection Liver: Small liver, nodular border. Recanalized umbilical vein. Biliary/Gallbladder: Cholelithiasis. No bile duct dilation. Pancreas: No mass or duct dilation. Spleen: Normal. Adrenals:No mass. Kidneys: Cortical thinning. Simple right lower pole cyst. Bilateral nonobstructing calculi. No suspicious mass or hydronephrosis. GI tract: Small hiatal hernia, mild esophageal and gastric wall edema. Wall edema in the right colon, likely related to cirrhosis. No small or large bowel dilation. Normal appendix. (7) Esophageal stricture: Code(s): K22.2 - Esophageal obstruction Status: Acute Assessment and Plan: I performed esophageal dilatation. Because of severe ulceration in that area did not dilated all the way to 20 mm. Plan will hold anticoagulation. Will schedule EGD for tomorrow. He may need esophageal dilatation he will ultimately need evaluation of his liver disease. It could be from chronic passive congestion due to heart failure but that cannot be assumed. He denies excessive Or regular use of alcohol. 10/24/2023 he is eating well without difficulty. Because of allergy to PPI have switch him to famotidine and sucralfate. I told him that we will repeat EGD in 6 weeks or so. Subjective Date/time seen: 10/24/23 12:20 no new complaints. He has had no difficulty eating since his endoscopy and dilatation. No evidence of bleeding. He states he is allergic to pantoprazole. Will switch to H2 alejo plus sucralfate. Exam Const: General: cooperative and ill appearing Orientation/consciousness: patient oriented x3 HENMT: Head: normal to inspection Ears: hearing grossly normal bilaterally Mouth: Yes Normal oral and palata
[2023-10-24 16:07] LABS: Glucose Point of Care 128 mg/dl (65-105)
--- NOTE | 2023-10-24 17:37 | PM.DS ---
DS: Admitting Diagnosis Discharge Date 10/24/23 Admitting Diagnosis 1. Nausea 2. Vomiting 3. Diarrhea 4. Fatigue; Malaise 5. Acute blood loss anemia DS: Discharge Diagnosis Discharge Diagnosis (1) Esophageal stricture: Code(s): K22.2 - Esophageal obstruction Status: Acute (2) Physical deconditioning: Code(s): R53.81 - Other malaise Status: Acute Assessment and Plan: PT/OT eval and Rx (3) Acute blood loss anemia: Code(s): D62 - Acute posthemorrhagic anemia Status: Acute Assessment and Plan: Maybe 10/17 GIB 10/23/23: Will transfuse 2U PRBC (4) Esophageal ulcer without bleeding: Code(s): K22.10 - Ulcer of esophagus without bleeding Status: Acute Assessment and Plan: Per EGD, 10/23/23 Shows non-bleeding esophageal ulcers Plan: PPI BID f/u with Dr. Wayne Adams EGD in 2 monhts (5) Ascites of liver: Code(s): R18.8 - Other ascites Status: Acute Assessment and Plan: GI on board; Lasix May need paracentesis (6) Cirrhosis of liver: Code(s): K74.60 - Unspecified cirrhosis of liver Status: Acute Assessment and Plan: GI on board; (7) Gynecomastia, male: Code(s): N62 - Hypertrophy of breast Status: Acute Assessment and Plan: US of breasts show benign gynecomastia (8) Diarrhea: Code(s): R19.7 - Diarrhea, unspecified Status: Acute Assessment and Plan: Stable; Acute Monitor (9) Dysphagia: Code(s): R13.10 - Dysphagia, unspecified Status: Acute Assessment and Plan: Acute; with nausea and vomiting GI on board; for EGD tomorrow (10) Hypokalemia: Code(s): E87.6 - Hypokalemia Status: Acute Assessment and Plan: Replete and monitor (11) HLD (hyperlipidemia): Code(s): E78.5 - Hyperlipidemia, unspecified Status: Acute Assessment and Plan: Chronic; Stable resume statin (12) Insulin dependent type 2 diabetes mellitus: Code(s): E11.9 - Type 2 diabetes mellitus without complications; Z79.4 - tank terminal gauger (current) use of insulin Status: Chronic Assessment and Plan: Basal+Correctional insulin (13) Persistent atrial fibrillation: Code(s): I48.19 - Other persistent atrial fibrillation Status: Chronic Assessment and Plan: Chronic; Hold [place] DS: Summary Hospital Course Reason for hospitalization: 1. Nausea 2. Vomiting 3. Diarrhea 4. Fatigue; Malaise Hospital Course: Chief Complaint: 1. Nausea 2. Vomiting 3. Diarrhea 4. Fatigue; Malaise Narrative: Jennifer Jewell is a 78 yo M with a mHx significant for aortic valve replacement on [place], CHF, diabetes, hypertension? presenting with nausea and vomiting. ? He states that this is actually been a problem since his? aortic valve replacement approximately 4 months ago.? He has had a lot of non-bloody diarrhea and it is difficult for him to eat.? Feels that it is difficult to swallow and he is sometimes nauseated.? Complains of diffuse abdominal pain.? He saw his PCP yesterday who ordered the referral to Gastroenterology for possible EGD.? Patient states that today he was so weak that he could barely walk so he came in for evaluation.? He gets short of breath even with minimal activity; this has been ongoing for several months.? No fevers or chills, chest pain, dysuria, hematuria.? Does complain of intermittent arm and leg swelling. He does not smoke/chew tobacco, drink alcohol or consume recreational drugs; his family Hx is not contributory to the PC Work-up findings: Na 131 K 3.4 Cl 102 HCO3 22 AG 7 BUN 23 Cr 1.1 GFR 53 AST 37 ALT 24 ALP 121 Troponin <0.012 UA: +Trace LE; 21-50 WBC CXR:?Minor fissure scar/fluid, possible trace right pleural effusion. CTAP: Asymmetric gynecomastia. Recommend referral for left breast ultrasound and mammography. Cirrhosis with portal hypertension. Large volume ascites. Moderate body wa
[2023-10-24] MEDS: PRAVASTATIN SODIUM 20 MG TABLET 40 MG PO (18:08)
== END 2023-10-24 19:00 | disposition home or self-care (01) | DRG 391 ==
LOC: ANHED 15:40 → ANHIMU 23:10
PROVIDERS: Emergency Medicine; Internal Medicine Gastroenterology; Admitting Provider Internal Medicine; Emergency Provider Emergency Medicine; PCP Emergency Medicine; Visit Provider Internal Medicine
PROC: 0DJ08ZZ Inspection of Upper Intestinal Tract, Via Natural or Artificial Opening Endoscopic (ICD-10-PCS; CPT 43235; principal; 2023-10-23 12:00)
DX: E43 Unspecified severe protein-calorie malnutrition; I48.19 Other persistent atrial fibrillation; K22.2 Esophageal obstruction; R18.8 Other ascites; K22.10 Ulcer of esophagus without bleeding; E11.42 Type 2 diabetes mellitus with diabetic polyneuropathy; E87.6 Hypokalemia; E78.5 Hyperlipidemia, unspecified; I11.0 Hypertensive heart disease with heart failure; I50.9 Heart failure, unspecified; I25.10 Atherosclerotic heart disease of native coronary artery without angina pectoris; K74.60 Unspecified cirrhosis of liver; N62 Hypertrophy of breast; R13.10 Dysphagia, unspecified; R19.7 Diarrhea, unspecified; Z79.02 Long term (current) use of antithrombotics/antiplatelets; Z87.891 Personal history of nicotine dependence; Z79.4 Long term (current) use of insulin; Z79.01 Long term (current) use of anticoagulants; Z95.4 Presence of other heart-valve replacement; Z98.41 Cataract extraction status, right eye; Z98.42 Cataract extraction status, left eye; Z68.33 Body mass index [BMI] 33.0-33.9, adult
CPT/HCPCS: 36415; 36430; 71045; 74177; 76641; 80048; 80053; 81001; 82248; 82948; 83690; 83735; 83880; 84484; 85025; 85027; 85384; 85610; 85730; 86850; 86900; 86901; 86923; 87040; 87086; 88305; 88313; 93005; 93798; 96361; 96365; 96375; 97110; 97161; 97165; 97530; 97535; 99285; A9270; C1726; C8929; J0290; J0696; J1580; J1815; J1940; J2405; J2704; J3480; J7030; J7040; J7050; J7120; P9016; Q9957; Q9967

== ENCOUNTER 2023-11-10 08:06 | Outpatient (CLI) | payer MEDICARE, SELFPAY ==
--- NOTE | ~2023-11-10 | XR_ITS ---
EXAMINATION: XR barium swallow modified DATE: 11/10/2023 09:09 INDICATION: Dysphagia, unspecified. TECHNIQUE: The patient was given barium-containing material of multiple consistencies to swallow by t mallory speech pathologist while I performed fluoroscopy. Fluoroscopy exposure time was 1.1 minutes. The n umber of fluoroscopy images saved to the PACS was 1. Dose-area product was 0.654 Gy-cm^2. FINDINGS: The oral stage of the swallow is normal. There is reduced tongue base retraction with spillover to th e vallecula and piriform sinuses prior to swallowing. No laryngeal penetration. IMPRESSION: 1. No laryngeal penetration or aspiration. 2. Please refer to the speech therapy report for recommendations. Reviewed, dictated and finalized at location A. R KILN
--- NOTE | 2023-11-10 09:19 | REHSTMBS ---
Assessment and note entered by Sunshine Monroy, [employer] Modified Barium Swallow Evaluation Feeding Type Recommended Oral Food Consistency Soft and Bite Size, Level Liquid Consistency Thin (0) ST Clinical Summary MODIFIED BARIUM SWALLOW STUDY (MBS) This patient was seen for a Modified Barium Swallow study at the request of his physician. Patient reported that he had a valve replacement surgery at the beginning of October and since then, he has been having difficulty swallowing. He reported that while he was in the hospital recuperating from the surgery, he was given a scope (EGD?) to help him swallow and stated that he is returning in December so that they could do more for his throat. He reports that he can eat Twinkies and Oatmeal Cream Pies with Glucerna or water wash but stated that just looking at or taking one bite of a hamburger or grilled cheese sandwich makes him gag. Patient reports reduced strength in his legs since the surgery and limited intake causing issues with blood sugar and some weight loss. This Modified Barium Swallow study was administered to assess this patient's risk for aspiration and to study swallowing movement. Patient was viewed in the lateral position to the level of C5/C6. Patient was presented with a small sip of thin liquid contrast medium, and then uncontrolled contrast medium per cup and also per straw, pudding mixed with semi-solid contrast medium, and then large cracker piece and two pieces of fruit cocktail with syrup all coated with the semi-solid mixture. Patient exhibited spilling over of liquid material into the valleculae and below the level of the airway to the pyriform sinuses immediately before triggering the swallow however he avoided penetration and aspiration throughout. He also handled the pudding and to two solid substances with no spilling over into the pharynx and no penetration. Results suggest patient's swallowing skills are grossly within normal limits. It is expected that he would trigger quicker swallows with preferred liquids such as Glucerna and water. Based on
== END 2023-11-10 08:07 | disposition home or self-care (01) ==
PROVIDERS: PCP Emergency Medicine; Visit Provider Emergency Medicine
DX: R13.10 Dysphagia, unspecified (principal)
CPT/HCPCS: 92611

== ENCOUNTER 2023-11-12 08:54 | Outpatient (RCR) | payer MEDICARE, SELFPAY ==
--- NOTE | 2023-11-12 09:48 | PTOPEVAL1 ---
Assessment and note entered by [facility] Evaluation Information Assessment Status Evaluation Diagnosis malaise, generalized weakness, functional decline Onset 10/20/23 Subjective Information Pt. reports that he had a valve replacement on his heart around October. He states that it was not open heart. He reports that since his procedure he has noticed increased weakness and fatigue. Pt. reports that he notices he gets tired easily and walking has become more difficult . He reports that he is currently using a walker for stability. He reports that he experienced 2 falls last week. He states that prior to his procedure he was using a cane. He states that he lives at home with his . Prior to his procedure he was able to complete light household activities and could stand for a duration of 10-15 minutes. He states that he can now only stand for approximately 1-2 minutes. He can navigate through his home, but not much further. He does continue to drive and drove himself to PT today. He states that prior to his procedure he was able to complete grocery shopping without assistance, however is currently having his son do his shopping. He states that he is concerned with the onset of weakness and his goal for PT is to improve his strength and endurance. Reported Pain Level Pain Score 2: Self Report Additional Pain Score Comments takes daily Tylenol for back pain Assessment PT Clinical Summary Pt. is a 78 year old who presents with the clinic with a diagnosis of malaise following heart procedure. He presents with impaired endurance, impaired gait mechanics, impaired bilateral l.e. strength, impaired balance and functional decline. Continued skilled PT is indicated in order to improve these areas to allow the pt. to improve endurance with ADL's and safety with standing activities. Plan of Care Interventions Gait Training,Neuro Re-education,Patient/Caregiver Education,Therapeutic Activities,Therapeutic Exercise PT Services Indicated Yes Treatment Frequency and 2x/week x 10 visits Duration These treatments will address the objective and functional deficits as defined above. The patient will be advanced safely and appropriately in order for the patient to progress towards his/her prior level of function. Additional exercises will be introduced and as well as a comprehensive home exercise program upon discharge,
--- NOTE | 2023-11-12 09:53 | OPREHPOC ---
Outpatient Therapy Plan of Care This is a Multidisciplinary Plan of Care that may contain components documented by all disciplines (PT, OT, and ST.) PT Problem 1 PT Problem #1 Knowledge Deficit PT Goal 1 Goal Independent with a HEP addressing l.e. strength and endurance Target Visit 2 PT Problem 2 PT Problem #2 Impaired Balance PT Goal 1 Goal Pt. will improve his Tinetti score to 19 or greater indicating improved balance and safety. Target Visit 10 PT Problem 3 PT Problem #3 Impaired Endurance PT Goal 1 Goal Pt. will demonstrate the ability to stand for a duration of 10 minutes completing therapeutic activities in the clinic indicating improve standing endurance for ADL and IADL performance Target Visit 10 PT Problem 4 PT Problem #4 Impaired Gait PT Goal 1 Goal Pt. will be able to complete the 6 minute walk test over a distance of 600' without rest maintaining normal vitals using a ww. Target Visit 10 PT Problem 5 PT Problem #5 Impaired Strength PT Goal 1 Goal pt. will demonstrate 4/5 gross l.e. strength or greater to improve standing stability and endurance. Target Visit 10
--- NOTE | 2023-11-25 15:43 | PCPTNOTE ---
Pt canceled appt today due to being in the hospital and he stated the MD put a hold on therapy for a while and will have to have a medical release to return.
--- NOTE | 2023-11-26 11:16 | PTOPDC ---
Assessment and note entered by Jeff Cool Evaluation Information Assessment Status Discharge - Pt Not Presen Diagnosis malaise, generalized weakness, functional decline Onset 10/20/23 Assessment PT Clinical Summary The patients family contacted the clinic stating that the pt. was hospitalized. The doctor requested that the pt. hold on therapy at this time. Refer to his last daily note for discharge information. Plan of Care PT Services Indicated No
== END 2023-11-26 13:50 | disposition home or self-care (01) ==
LOC: ANHPT 08:54
PROVIDERS: PCP Emergency Medicine; Visit Provider Internal Medicine
DX: R53.81 Other malaise (principal)
CPT/HCPCS: 97161; 97530; 99199

== ENCOUNTER 2023-11-16 13:45 | Emergency (ER) | payer MEDICARE, SELFPAY ==
--- NOTE | ~2023-11-16 | CT_ITS ---
EXAMINATION: CT abdomen pelvis w con DATE: 11/16/2023 15:50 INDICATION: n/v/d TECHNIQUE: Computed tomography (CT) of the abdomen and pelvis was performed with 100 mL Omnipaque-350 intravenous contrast. Automated exposure control and iterative reconstruction technique were employe d. The dose-length product was 1365.63 mGy-cm. COMPARISON: 10/21/2023; ultrasound left breast 10/23/2023. FINDINGS: Lower thorax: Aortic valve replacement. Coronary artery calcifications. Bibasilar scar/atelectasis. G ranulomas calcifications. Small bilateral pleural effusions. Asymmetric gynecomastia, larger on the l eft, previously evaluated by breast ultrasound. Liver: Small cirrhotic liver. Biliary/Gallbladder: Cholelithiasis. No bile duct dilation. Pancreas: Moderate atrophy. Spleen: Normal. Adrenals:No mass. Kidneys: No suspicious mass, obstructing stone, or hydronephrosis simple left lower pole cyst. Puncta te bilateral nonobstructing calculi.. GI tract: Small hiatal hernia. Multiple loops of mildly dilated small bowel in the left abdomen, no t ransition point, uniform bowel wall enhancement, without significant bowel wall thickening. No large bowel dilation. Normal appendix. Diverticulosis without diverticulitis. Mesentery/Peritoneum: Large volume simple ascites. No mass or free air. Retroperitoneum: No mass. Pelvis: Pelvic organs are within normal limits. Soft Tissues: Moderate diffuse body wall edema. Uncomplicated fat-containing ventral hernias. Recanal ization of the umbilical vein, with abdominal wall varices. Bones: No acute osseous finding. IMPRESSION: Asymmetric gynecomastia, larger on the left, benign on prior breast ultrasound. Cirrhosis with hypertension. Mildly dilated upper abdominal small bowel, no transition point. Likely ileus. Early obstruction is n ot excluded. Large volume ascites. Moderate body wall edema. Reviewed, dictated and finalized at location K. INE TRY OUT SETTER IMPRESSION: Asymmetric gynecomastia, larger on the left, benign on prior breast ultrasound. Cirrhosis with hypertension. Mildly dilated upper abdominal small bowel, no transition point. Likely ileus. Early obstruction is not excluded. Large volume ascites. Moderate body wall edema.
[2023-11-16 13:55] VITALS: BP 108/52; PULSE 73; RESP 16; TEMP 36.6; O2SAT 100
--- NOTE | 2023-11-16 14:00 | ED.GENADULT ---
HPI - General Adult General Chief complaint: Nausea/Vomiting/Diarrhea Stated complaint: vomiting Time Seen by Provider: 11/16/23 13:53 History of Present Illness HPI narrative: 78-year-old male present to the emergency department for evaluation of persistent nausea vomiting and diarrhea. Patient had a recent admission and October and patient is scheduled to have follow-up with GI. During patient's admission in October he was treated for nausea vomiting diarrhea and fatigue. Patient did have an EGD and was found to have an esophageal ulcer without bleeding, patient is scheduled to have follow-up with Dr. Adams. Patient also has known history of cirrhosis, diabetes. Related Data Home Medications Medication Instructions Recorded Confirmed apremilast 30 mg tablet (Otezla) 30 mg PO BID 01/13/23 11/04/23 bumetanide 1 mg tablet 1 mg PO DAILY 06/16/23 11/04/23 clopidogrel 75 mg tablet 75 mg PO DAILY 06/16/23 11/04/23 apixaban 5 mg tablet (Eliquis) 5 mg PO BID 08/19/23 11/04/23 vitamin B complex 1 tablet PO QPM 08/19/23 11/04/23 empagliflozin 10 mg tablet 10 mg PO DAILY 10/22/23 11/04/23 (Jardiance) insulin glargine 100 unit/mL (3 56 unit subcut QAM 10/22/23 11/04/23 mL) subcutaneous pen (Basaglar KwikPen U-100 Insulin) losartan 100 mg tablet 100 mg PO DAILY 10/22/23 11/04/23 pravastatin 40 mg tablet 40 mg PO DAILY 10/22/23 11/04/23 Allergies Allergy/AdvReac Type Severity Reaction Status Date / Time venom-honey bee Allergy Intermediate Swelling Verified 11/16/23 14:08 pantoprazole AdvReac Intermediate Nausea and Verified 11/16/23 14:08 Vomiting Review of Systems Review of Systems: All systems reviewed & are unremarkable except as noted in HPI and below PMFSH Past Medical History Medical History Chronic anticoagulation Patient takes rivaroxaban for stroke prophylaxis given persistent atrial fibrillation. Diabetic peripheral neuropathy Essential hypertension Generalized osteoarthritis Hernia (~1989) History of kidney stones Hyperlipidemia Inflammatory arthritis Insulin dependent type 2 diabetes mellitus Hemoglobin A1c was 7.7% on 12/28/2020. Kidney stone (~1976) Moderate aortic valve stenosis Nonrheumatic moderate aortic stenosis noted on echocardiogram on 11/28/2020 with a valve area of 1.08 cm2. Moderate pulmonary hypertension Estimated peak RVSP 48 mmHg on echo on 11/28/2020. Persistent atrial fibrillation Psoriasis Surgical History Surgical History History of bilateral cataract extraction History of eye surgery Retinal surgery due to wrinkling. History of heart valve replacement (~06/15/23) History of loop recorder times 2 since removed History of surgery on arm Left upper extremity tendon repair. History of ventral hernia repair Family History Family History Father , 70 -- Diabetes cause of Diabetes mellitus Hypertension Mother , 35 -- hemmorage Brain bleed Hypertension Social History Social History (Updated 11/04/23 @ 13:52 by Brisa Brown MA) Social History: Surrogate decision maker: Olivia Jewell, spouse. He has 3 children. Code status: Full code. Smoking packs per day: 2 Smoking cigarettes per day: 40.0 Years smoked: 5 Smoking pack-years: 10.00 Smoking status: Former smoker Tobacco type: cigarettes Additional smoking assessment comments: smoke as a teenager Alcohol intake: never Substance use: never Substance use type: does not use Current Housing: Decline to Answer Concerned About Future Housing: Decline to Answer Difficulty Paying Gas/Electric Bills: Decline to Answer Difficulty Paying for Meds: Decline to Answer Currently Unemployed: Decline to Answer Education: Decline to Answer Difficulty w/ Childcare or Family Care:
[2023-11-16 14:31] LABS: Glucose Point of Care 54 mg/dl (65-105)
[2023-11-16] MEDS: ONDANSETRON INJ 4 MG/2 ML VIAL IV PUSH ×2 (14:32→18:28)
[2023-11-16] MEDS: DEXTROSE 50% 25 GM/50 ML SYRINGE (14:35)
[2023-11-16 14:51] LABS: Lactic Acid Reflex 2.6 mmol/L (0.7-2.0)
[2023-11-16 14:59] LABS: Alanine Aminotransferase 27 U/L (6-50); Albumin Level 2.5 g/dL (3.5-5.1); Alkaline Phosphatase 159 U/L (38-126); Anion Gap 5 mmol/L (8-16); Aspartate Amino Transferase 42 U/L (17-59); Bilirubin,Total 0.9 mg/dL (0.2-1.3); Blood Urea Nitrogen 19 mg/dL (9-20); Calcium 8.4 mg/dL (8.4-10.2); Carbon Dioxide 24 mmol/L (22-30); Chloride 103 mmol/L (98-107); Estimated CRCL calculation 59 ml/min; Estimated Glomerular Filt Rate > 60; Glucose 51 mg/dL (65-110); Lipase 32 U/L (23-300); Potassium 3.2 mmol/L (3.4-5.0); Sodium 132 mmol/L (137-145)
[2023-11-16 15:04] LABS: Basophils Percent Auto 0.2 % (0.2-1.2); Eosinophils Percent Auto 0.2 % (0-4.4); Hematocrit 26.7 % (42.0-52.0); Hemoglobin 8.7 g/dL (14.0-18.0); Immature Granulocyte Absolute 0.06 K/mm3 (0.00-0.031); Immature Granulocyte Percent A 0.6 % (0-0.5); Lymphocytes Absolute Auto 1.24 K/mm3 (0.9-3.2); Lymphocytes Percent Auto 11.4 % (18.3-44.2); Mean Corpuscular HGB Conc 32.6 g/dl (32-36); Mean Corpuscular Hemoglobin 30.5 pg (26-34); Mean Corpuscular Volume 93.7 fl (80-100); Mean Platelet Volume 10.7 fl (7.4-10.4); Monocytes Absolute Auto 0.7 K/mm3 (0.1-0.6); Monocytes Percent Auto 6.2 % (2.6-8.5); Neutrophils Absolute Auto 8.9 K/mm3 (1.3-6.7); Neutrophils Percent Auto 81.4 % (45.5-73.1); Platelet Count Result 155 k/mm3 (150-375); Red Blood Count 2.85 M/mm3 (4.6-6.20); Red Cell Distribution Width 21.6 % (11.5-14.5); White Blood Count 10.9 K/mm3 (4.5-10.0)
[2023-11-16] MEDS: SODIUM CHLORIDE 0.9% IV 1,000 ML 500 ML IV CONT (15:52)
[2023-11-16 17:10] LABS: Glucose Point of Care 80 mg/dl (65-105)
[2023-11-16 17:40] LABS: Reflex Lactic Acid Yes or No Add Lactic
[2023-11-16 18:38] VITALS: BP 103/64; PULSE 69; RESP 16; O2SAT 100
== END 2023-11-16 18:43 | disposition home or self-care (01) ==
PROVIDERS: Emergency Provider Emergency Medicine; PCP Emergency Medicine
DX: R11.0 Nausea (principal); I48.19 Other persistent atrial fibrillation; I10 Essential (primary) hypertension; I35.0 Nonrheumatic aortic (valve) stenosis; I27.20 Pulmonary hypertension, unspecified; E11.42 Type 2 diabetes mellitus with diabetic polyneuropathy; E78.5 Hyperlipidemia, unspecified; L40.9 Psoriasis, unspecified; M19.90 Unspecified osteoarthritis, unspecified site; Z95.2 Presence of prosthetic heart valve; Z95.818 Presence of other cardiac implants and grafts; Z87.442 Personal history of urinary calculi; Z87.891 Personal history of nicotine dependence; Z98.42 Cataract extraction status, left eye; Z98.41 Cataract extraction status, right eye; Z79.4 Long term (current) use of insulin; Z79.01 Long term (current) use of anticoagulants; K74.60 Unspecified cirrhosis of liver; R18.8 Other ascites
CPT/HCPCS: 36415; 74177; 80053; 82948; 83605; 83690; 85025; 96361; 96374; 96375; 96376; 99284; J2405; J7030; Q9967

== ENCOUNTER 2023-11-18 10:39 | Inpatient (IN) | payer MEDICARE, SELFPAY ==
[2023-11-18] VITALS (13 sets, daily range): BP systolic 86–116; BP diastolic 43–59; PULSE 62–78; RESP 12–19; TEMP 36–36.7; O2SAT 97–100; BMI 33.7
--- NOTE | ~2023-11-18 | US_ITS ---
EXAMINATION: US paracentesis abd w/image DATE: 11/20/2023 15:00 INDICATION: Ascites. TECHNIQUE: The procedure and its risks and benefits were discussed with the patient. Potential risks discussed included bleeding and infection. The skin was prepped and draped in sterile fashion. 1% lid ocaine was used for local anesthesia. Under ultrasound guidance, a 5 Fr catheter with trochar was adv anced into the ascites in the left lower quadrant. Fluid was aspirated into vacuum bottles. The josesito ter was removed, and a dressing was applied. There were no immediate complications. FINDINGS: Ultrasound images demonstrate ascites and the catheter within the fluid. IMPRESSION: 1. Successful ultrasound-guided paracentesis yielding 5000 mL of light ponce-colored fluid. Reviewed, dictated and finalized at location A. STRIPER IMPRESSION: 1. Successful ultrasound-guided paracentesis yielding 5000 mL of light ponce-c olored fluid.
[2023-11-18 11:19] LABS: Glucose Point of Care 101 mg/dl (65-105)
--- NOTE | 2023-11-18 11:46 | ED.GIBLEED ---
HPI - GI Bleed General Chief complaint: GI Bleed Stated complaint: blood in stool and vomit Time Seen by Provider: 11/18/23 11:34 History of Present Illness HPI Narrative: Patient is a 78-year-old male with history of CAD, prior GI bleed, achalasia here with concern for GI bleed. Patient notes that over the last couple of days his symptoms seem to have significantly worsened. He has had multiple episodes of dark coffee-ground emesis as well as black stools. He was seen in this emergency department 2 days ago, symptoms significantly worsened since that time. Family did contact Dr. Adams's office who recommended he come back to the ER for evaluation. He notes significant weakness in his lower extremities and difficulty ambulating around. He is having difficulty keeping anything down due to his nausea and vomiting. He appears to be on both Eliquis and Plavix. Related Data Home Medications Medication Instructions Recorded Confirmed apremilast 30 mg tablet (Otezla) 30 mg PO BID 01/13/23 11/04/23 bumetanide 1 mg tablet 1 mg PO DAILY 06/16/23 11/04/23 clopidogrel 75 mg tablet 75 mg PO DAILY 06/16/23 11/04/23 apixaban 5 mg tablet (Eliquis) 5 mg PO BID 08/19/23 11/04/23 vitamin B complex 1 tablet PO QPM 08/19/23 11/04/23 empagliflozin 10 mg tablet 10 mg PO DAILY 10/22/23 11/04/23 (Jardiance) insulin glargine 100 unit/mL (3 56 unit subcut QAM 10/22/23 11/04/23 mL) subcutaneous pen (Basaglar KwikPen U-100 Insulin) losartan 100 mg tablet 100 mg PO DAILY 10/22/23 11/04/23 pravastatin 40 mg tablet 40 mg PO DAILY 10/22/23 11/04/23 Allergies Allergy/AdvReac Type Severity Reaction Status Date / Time venom-honey bee Allergy Intermediate Swelling Verified 11/16/23 14:08 pantoprazole AdvReac Intermediate Nausea and Verified 11/16/23 14:08 Vomiting Review of Systems Review of Systems: All systems reviewed & are unremarkable except as noted in HPI and below PMFSH Past Medical History Medical History Chronic anticoagulation Patient takes rivaroxaban for stroke prophylaxis given persistent atrial fibrillation. Diabetic peripheral neuropathy Essential hypertension Generalized osteoarthritis Hernia (~1989) History of kidney stones Hyperlipidemia Inflammatory arthritis Insulin dependent type 2 diabetes mellitus Hemoglobin A1c was 7.7% on 12/28/2020. Kidney stone (~1976) Moderate aortic valve stenosis Nonrheumatic moderate aortic stenosis noted on echocardiogram on 11/28/2020 with a valve area of 1.08 cm2. Moderate pulmonary hypertension Estimated peak RVSP 48 mmHg on echo on 11/28/2020. Persistent atrial fibrillation Psoriasis Surgical History Surgical History History of bilateral cataract extraction History of eye surgery Retinal surgery due to wrinkling. History of heart valve replacement (~06/15/23) History of loop recorder times 2 since removed History of surgery on arm Left upper extremity tendon repair. History of ventral hernia repair Family History Family History Father , 70 -- Diabetes cause of Diabetes mellitus Hypertension Mother , 35 -- hemmorage Brain bleed Hypertension Social History Social History (Updated 11/04/23 @ 13:52 by Brisa Brown MA) Social History: Surrogate decision maker: Olivia Jewell, spouse. He has 3 children. Code status: Full code. Smoking packs per day: 2 Smoking cigarettes per day: 40.0 Years smoked: 5 Smoking pack-years: 10.00 Smoking status: Former smoker Tobacco type: cigarettes Additional smoking assessment comments: smoke as a teenager Alcohol intake: never Substance use: never Substance use type: does not use Current Housing: Decline to Answer Concerned About Future Housing: Decline to Answer Difficulty Paying Gas/Keri
[2023-11-18 11:51] LABS: Basophils Percent Auto 0.2 % (0.2-1.2); Eosinophils Percent Auto 0.1 % (0-4.4); Hematocrit 22.4 % (42.0-52.0); Hemoglobin 7.2 g/dL (14.0-18.0); Immature Granulocyte Absolute 0.05 K/mm3 (0.00-0.031); Immature Granulocyte Percent A 0.5 % (0-0.5); Lymphocytes Percent Auto 13.1 % (18.3-44.2); Mean Corpuscular HGB Conc 32.1 g/dl (32-36); Mean Corpuscular Hemoglobin 30.8 pg (26-34); Mean Corpuscular Volume 95.7 fl (80-100); Mean Platelet Volume 10.6 fl (7.4-10.4); Monocytes Absolute Auto 0.5 K/mm3 (0.1-0.6); Monocytes Percent Auto 5.6 % (2.6-8.5); Neutrophils Absolute Auto 7.3 K/mm3 (1.3-6.7); Neutrophils Percent Auto 80.5 % (45.5-73.1); Platelet Count Result 149 k/mm3 (150-375); Red Blood Count 2.34 M/mm3 (4.6-6.20); Red Cell Distribution Width 21.8 % (11.5-14.5); White Blood Count 9.1 K/mm3 (4.5-10.0)
[2023-11-18 12:01] LABS: INR 2.2; Prothrombin Time 26.5 Seconds (11.1-14.7)
[2023-11-18 12:02] LABS: Alanine Aminotransferase 25 U/L (6-50); Albumin Level 2.2 g/dL (3.5-5.1); Alkaline Phosphatase 133 U/L (38-126); Anion Gap 7 mmol/L (8-16); Aspartate Amino Transferase 36 U/L (17-59); Bilirubin,Total 0.9 mg/dL (0.2-1.3); Blood Urea Nitrogen 33 mg/dL (9-20); Calcium 8.2 mg/dL (8.4-10.2); Carbon Dioxide 20 mmol/L (22-30); Chloride 105 mmol/L (98-107); Estimated CRCL calculation 36 ml/min; Estimated Glomerular Filt Rate 39; Glucose 98 mg/dL (65-110); Potassium 3.4 mmol/L (3.4-5.0); Sodium 132 mmol/L (137-145)
[2023-11-18 12:03] LABS: Partial Thromboplastin Time 61.7 SECONDS (22.3-36.8)
[2023-11-18] MEDS: MORPHINE SULFATE (*CRX) 4 MG/ML INJ IV PUSH (12:40)
[2023-11-18] MEDS: FAMOTIDINE 20 MG/2 ML VIAL 40 MG IV PUSH (12:40)
[2023-11-18] MEDS: ONDANSETRON INJ 4 MG/2 ML VIAL IV PUSH (12:40)
[2023-11-18] MEDS: SODIUM CHLORIDE 0.9% IV 250 ML 30 ML IV CONT (13:21)
[2023-11-18] MEDS: TUBING, BLOOD SET 1 EACH XX (13:21)
--- NOTE | 2023-11-18 14:37 | PM.IMHP ---
H&P: HPI History of Present Illness Date/Time: 11/18/23 14:37 Chief Complaint: GI bleed Narrative: This is a 78-year-old male with a significant past medical history of AFib, hypertension, type 2 diabetes mellitus, hyperlipidemia, diabetic peripheral neuropathy, pulmonary hypertension, aortic valve stenosis who presents to the hospital with concerns for GI bleeding. Patient stated that he has had multiple episodes of dark coffee-ground emesis and black tarry stools that has significantly got worse in the past couple of days. On examination today patient denies any fever, chills, shortness of breath, chest pain, abdominal pain, headache. He endorses nausea, vomiting, and diarrhea. His vital signs are stable, he is afebrile, currently on room air. He does have 2 to 3+ pitting edema to both lower extremities, his bowel sounds are very hypoactive and he states he has not been passing any gas. Work up in the hospital today included labs that were significant for hemoglobin of 7.2, sodium 132, bicarb 20, BUN 33, creatinine 1.7, alk-phos 133, albumin 2.2. Patient was given 1 unit of PRBC, Zofran, Pepcid, morphine while in the ED. Of note, he was recently seen in the ED on 11/16/2023 nausea, vomiting, and diarrhea. He was also noted to have hypoglycemia during that visit. Workup in the ED on 11/16/[address] of the abdomen pelvis with contrast showed cirrhosis with hypertension, mildly dilated upper abdominal small bowel likely an ileus or early obstruction, large volume ascites, asymmetric gynecomastia left greater than right. He was given IV fluids, glucose, and nausea medication. He was then sent home with instructions to follow up with his GI doctor. His hemoglobin was noted to be 8.7 at that time. Review of Systems Review of Systems: All systems reviewed & are unremarkable except as noted in HPI and below Constitutional: Constitutional: Reports as per HPI and Reports no additional constitutional complaints Eyes: Eyes: Reports as per HPI and Reports no additional eye complaints ENT: Reports system reviewed and no additional complaints, except as documented and Reports as per HPI Cardiovascular: Cardiovascular: Reports as per HPI and Reports no additional cardiovascular complaints Respiratory: Respiratory: Reports as per HPI and Reports no additional respiratory complaints Gastrointestinal: Gastrointestinal: Reports as per HPI and Reports no additional gastrointestinal complaints Genitourinary: Genitourinary: Reports no additional male genitourinary complaints and Reports as per HPI Musculoskeletal: Musculoskeletal: Reports no additional musculoskeletal complaints and Reports as per HPI Integumentary/Breasts: Skin/Breast: Reports system reviewed and no additional complaints, except as docu and Reports as per HPI Neurologic: Reports system reviewed and no additional complaints, except as documented and Reports as per HPI Psychiatric: Psychiatric: Reports no additional psychiatric complaints and Reports as per HPI [facility] Past Medical History Medical History Chronic anticoagulation Patient takes rivaroxaban for stroke prophylaxis given persistent atrial fibrillation. Diabetic peripheral neuropathy Essential hypertension Generalized osteoarthritis Hematemesis Hernia (~1989) History of kidney stones Hyperlipidemia Inflammatory arthritis Insulin dependent type 2 diabetes mellitus Hemoglobin A1c was 7.7% on 12/28/2020. Kidney stone (~1976) Moderate aortic valve stenosis Nonrheumatic moderate aortic stenosis noted on echocardiogram on 11/28/2020 with a valve area of 1.08 cm2. Moderate pulmonary hypertension Estimated peak RVSP 48 mmHg on echo on 11/28/2020. Persistent atrial fibrillation Psoriasis Surgical History Surgical History History of bilateral cataract extraction History of eye surgery Retinal surgery due t
[2023-11-18 16:38] LABS: Hematocrit 26.9 % (42.0-52.0); Hemoglobin 8.8 g/dL (14.0-18.0)
[2023-11-18 16:58] LABS: Glucose Point of Care 89 mg/dl (65-105)
--- NOTE | 2023-11-18 18:46 | WPDGICN ---
Assessment and Plan Assessment and plan (1) Acute GI bleeding: Code(s): K92.2 - Gastrointestinal hemorrhage, unspecified Status: Acute Assessment and Plan: on iv protonix, recently with erosive esophagitis and mann's, also required dilatation egd in am, noted history of cirrhosis- assess if PGH/varices (2) Hematemesis: Code(s): K92.0 - Hematemesis Status: Acute Assessment and Plan: iv protonix egd in am (3) Esophageal ulcer without bleeding: Code(s): K22.10 - Ulcer of esophagus without bleeding Status: Acute (4) Cirrhosis of liver: Code(s): K74.60 - Unspecified cirrhosis of liver Status: Acute Assessment and Plan: relatively new diagnosis no alcohol will order work up of chronic liver conditions (5) Ascites of liver: Code(s): R18.8 - Other ascites Status: Acute Assessment and Plan: paracentesis maybe tomorrow- inr 2 from eliquis which is now on hold (6) Acute blood loss anemia: Code(s): D62 - Acute posthemorrhagic anemia Status: Acute Assessment and Plan: monitor for signs of bleeding (7) Diarrhea: Code(s): R19.7 - Diarrhea, unspecified Status: Acute Assessment and Plan: for at least 2 months colonoscopy in am (8) Psoriasis: Code(s): L40.9 - Psoriasis, unspecified Status: Chronic (9) Moderate aortic valve stenosis: Code(s): I35.0 - Nonrheumatic aortic (valve) stenosis Status: Acute (10) Chronic anticoagulation: Code(s): Z79.01 - roasterman (current) use of anticoagulants Status: Chronic GI Consult Note Consult date/time: 11/18/23 18:46 Reason for consult: diarrhea, coffee ground emesis, cirrhosis HPI: Damir Jewell is a 78 year old male significant past medical history of AFib and AVS s/p TAVR on eliquis, hypertension, type 2 diabetes mellitus, hyperlipidemia, esophagitis/Mann confirmed by biopsy last month and cirrhosis who presents to the hospital with concerns for GI bleeding.? He is not best historian but last few days with multiple episodes of dark coffee-ground emesis and black tarry stools, he is complaining of diarrhea for 2-3 months (does not remember having recent colonoscopy) and previously had hgb 6.5 (EGD last month showed erosive esophagitis with mann's by Dr Adams, also stricture dilated with balloon). He was recently seen in the ED on 11/16/2023 nausea, vomiting, and diarrhea.and also had hypoglycemia.?CT of the abdomen pelvis with contrast showed cirrhosis with hypertension, mildly dilated upper abdominal small bowel likely an ileus or early obstruction, large volume ascites, asymmetric gynecomastia left greater than right and then sent home with instructions to follow up with GI. He is back again with similar symptoms. Repeat labs hemoglobin of 7.2, sodium 132, bicarb 20, BUN 33, creatinine 1.7, alk-phos 133, albumin 2.2.? Patient was given 1 unit of PRBC, Zofran. Review of Systems Constitutional: Constitutional: Reports lethargy Eyes: Eyes: Denies blurry vision ENT: Reports Normal hearing present Cardiovascular: Cardiovascular: Denies chest pain Respiratory: Respiratory: Denies cough Gastrointestinal: Gastrointestinal: Reports melena, Reports nausea and Reports vomiting Genitourinary: Genitourinary: Denies dysuria Musculoskeletal: Musculoskeletal: Denies neck pain Integumentary/Breasts: Skin/Breast: Denies rash Neurologic: Denies Abnormal speech present Psychiatric: Psychiatric: Denies behavioral changes [facility] Past Medical History Medical History (Updated 11/18/23 @ 18:53 by Radu Lancaster MD) Chronic anticoagulation Patient takes rivaroxaban for stroke prophylaxis given persistent atrial fibrillation. Diabetic peripheral neuropathy Essential hypertension Generalized osteoarthritis Hematemesis Hernia (~1989) History of kidney stones Hyperlipidemia Inflammatory arthritis Insulin d
[2023-11-18] MEDS: FAMOTIDINE 20 MG/2 ML VIAL IV PUSH (20:15)
[2023-11-18] MEDS: BISACODYL 5 MG TABLET EC 20 MG PO (20:15)
[2023-11-18] MEDS: SODIUM CHLORIDE 0.9% IV 1,000 ML 100 ML IV CONT (20:19)
[2023-11-18 21:00] LABS: Glucose Point of Care 100 mg/dl (65-105)
--- NOTE | 2023-11-18 21:38 | PC.NURSE ---
STILL WAITING ON PHYSICAL SCIENCES PROFESSOR TO BRING GATORADE TO [facility] FOR PREP.
[2023-11-18] MEDS: polyethylene glycoL 3350 238 GM BOTTLE PO (22:25)
[2023-11-19] VITALS (12 sets, daily range): BP systolic 86–130; BP diastolic 46–64; PULSE 63–83; RESP 16–243; TEMP 36.2–36.6; O2SAT 97–100; BMI 33.7
[2023-11-19] MEDS: SODIUM CHLORIDE 0.9% IV 1,000 ML 100 ML IV CONT ×2 (02:09→12:00)
[2023-11-19 02:14] LABS: Glucose Point of Care 144 mg/dl (65-105)
[2023-11-19] MEDS: MAGNESIUM CITRATE 300 ML BTL PO (02:39)
[2023-11-19 05:28] LABS: Basophils Percent Auto 0.3 % (0.2-1.2); Eosinophils Absolute Auto 0.1 K/mm3 (0-0.3); Eosinophils Percent Auto 1.2 % (0-4.4); Hematocrit 26.7 % (42.0-52.0); Hemoglobin 8.7 g/dL (14.0-18.0); Immature Granulocyte Absolute 0.03 K/mm3 (0.00-0.031); Immature Granulocyte Percent A 0.3 % (0-0.5); Lymphocytes Absolute Auto 1.57 K/mm3 (0.9-3.2); Lymphocytes Percent Auto 17.4 % (18.3-44.2); Mean Corpuscular HGB Conc 32.6 g/dl (32-36); Mean Corpuscular Hemoglobin 31.2 pg (26-34); Mean Corpuscular Volume 95.7 fl (80-100); Mean Platelet Volume 11.5 fl (7.4-10.4); Monocytes Absolute Auto 0.5 K/mm3 (0.1-0.6); Monocytes Percent Auto 5.1 % (2.6-8.5); Neutrophils Absolute Auto 6.8 K/mm3 (1.3-6.7); Neutrophils Percent Auto 75.7 % (45.5-73.1); Platelet Count Result 169 k/mm3 (150-375); Red Blood Count 2.79 M/mm3 (4.6-6.20); Red Cell Distribution Width 20.5 % (11.5-14.5)
[2023-11-19 05:37] LABS: Alanine Aminotransferase 27 U/L (6-50); Albumin Level 2.4 g/dL (3.5-5.1); Alkaline Phosphatase 168 U/L (38-126); Anion Gap 8 mmol/L (8-16); Aspartate Amino Transferase 45 U/L (17-59); Blood Urea Nitrogen 33 mg/dL (9-20); Calcium 8.3 mg/dL (8.4-10.2); Carbon Dioxide 19 mmol/L (22-30); Chloride 105 mmol/L (98-107); Estimated CRCL calculation 34 ml/min; Estimated Glomerular Filt Rate 37; Glucose 137 mg/dL (65-110); Potassium 3.2 mmol/L (3.4-5.0); Sodium 132 mmol/L (137-145)
[2023-11-19 06:16] LABS: Iron 43 ug/dL (49-181)
[2023-11-19 06:26] LABS: Percent Iron Saturation 18 % (20-50)
[2023-11-19 06:49] LABS: Hepatitis B Surface Antigen Negative (Negative)
[2023-11-19 06:54] LABS: HAV RESULT Negative (Negative); Hepatitis B Core IgM Result Negative (Negative)
[2023-11-19 07:06] LABS: Hepatitis C Virus Antibody Negative (Negative)
[2023-11-19 08:10] LABS: Glucose Point of Care 132 mg/dl (65-105)
[2023-11-19] MEDS: FAMOTIDINE 20 MG/2 ML VIAL IV PUSH (08:36)
[2023-11-19 11:45] LABS: Glucose Point of Care 109 mg/dl (65-105)
[2023-11-19] MEDS: KCL 20 MEQ/SW 100 ML 100 ML 50 MEQ IVPB (12:01)
--- NOTE | 2023-11-19 12:47 | P.PNIM_ITS ---
Progress Note: A&P Assessment and Plan (1) Acute GI bleeding: Code(s): K92.2 - Gastrointestinal hemorrhage, unspecified Status: Acute Assessment and Plan: 11/18/2023: * Patient reporting coffee-ground emesis and dark tarry stools * History of GI bleed in the past * Hemoglobin 7.2 today down from 8.7 on 11/16/2023 * 1 unit of PRBC was given in the ED * Repeat hemoglobin 8.8 after transfusion * GI consulted and plans for EGD in a.m. * NPO after midnight * Pepcid ordered b.i.d. since he has a Protonix allergy 11/19/23: * Still reporting N/V/D as described above * Hgb sable at 8.7 this morning * EGD planned for this afternoon with GI team * Currently NPO * Continue pepcid BID (2) Acute blood loss anemia: Code(s): D62 - Acute posthemorrhagic anemia Status: Acute Assessment and Plan: * see above plan of care (3) Weakness: Code(s): R53.1 - Weakness Status: Acute Assessment and Plan: 11/18/2023: * Patient states that he has been progressively getting weaker and admits to 2 ground level falls within the past year * PT and OT ordered for evaluation 11/19/23: * Continue with current treatment plan (4) Insulin dependent type 2 diabetes mellitus: Code(s): E11.9 - Type 2 diabetes mellitus without complications; Z79.4 - ad terminal makeup operator (current) use of insulin Status: Chronic Assessment and Plan: 11/18/2023: * Blood sugars ranging 89-101 * A.c. HS Accu-Cheks ordered * Hypoglycemic protocol ordered * Low-dose sliding scale insulin ordered * Last hemoglobin A1c was 4.6 on 10/15/2023 * Jardiance on hold 11/19/2023: * Continue with current treatment plan (5) Essential (primary) hypertension: Code(s): I10 - Essential (primary) hypertension Status: Chronic Assessment and Plan: 11/18/2023: * Blood pressures ranging 102/51 to 112/53 * Losartan and Bumex on hold due to labile blood pressure readings 11/19/2023: * Blood pressures ranging 86/46 to 107/52 * Continue to hold losartan and Bumex (6) HLD (hyperlipidemia): Code(s): E78.5 - Hyperlipidemia, unspecified Status: Chronic Assessment and Plan: 11/18/2023: * Continue pravastatin 40 mg * Plavix on hold for EGD in the morning with GI team 11/19/2023: * No change to current treatment plan (7) Persistent atrial fibrillation: Code(s): I48.19 - Other persistent atrial fibrillation Status: Chronic Assessment and Plan: 11/18/2023: * History of chronic AFib * Eliquis currently on hold for EGD in the morning per GI team * Last echo on 10/23/2023 was reviewed and shown that he was in AFib with normal LV systolic function and an estimated EF of greater than 70%, normal RV systolic function, TAVR with a mean gradient of 7 mmHg. * Continue cardiac monitoring 11/19/2023: * Discontinue continuous cardiac monitoring * Continue to hold Eliquis for EGD today Time Spent With Patient Time with patient: 25 - 35 minutes Subjective Date/time seen: 11/19/23 12:47 Interval history: 11/18/23: This is a 78-year-old male with a significant past medical history of AFib, hypertension, type 2 diabetes mellitus, hyperlipidemia, diabetic peripheral neuropathy, pulmonary hypertension, aortic valve stenosis who presents to the hospital with concerns for GI bleeding.? Patient stated that he has had multiple episodes of dark coffee-ground emesis and black tarry stools that has significantly got worse in the past couple of days. On examination today patient bharathi
--- NOTE | 2023-11-19 12:47 | PM.IMPN ---
Progress Note: A&P Assessment and Plan (1) Acute GI bleeding: Code(s): K92.2 - Gastrointestinal hemorrhage, unspecified Status: Acute Assessment and Plan: 11/18/2023: Patient reporting coffee-ground emesis and dark tarry stools History of GI bleed in the past Hemoglobin 7.2 today down from 8.7 on 11/16/2023 1 unit of PRBC was given in the ED Repeat hemoglobin 8.8 after transfusion GI consulted and plans for EGD in a.m. NPO after midnight Pepcid ordered b.i.d. since he has a Protonix allergy 11/19/23: Still reporting N/V/D as described above Hgb sable at 8.7 this morning EGD planned for this afternoon with GI team Currently NPO Continue pepcid BID (2) Acute blood loss anemia: Code(s): D62 - Acute posthemorrhagic anemia Status: Acute Assessment and Plan: see above plan of care (3) Weakness: Code(s): R53.1 - Weakness Status: Acute Assessment and Plan: 11/18/2023: Patient states that he has been progressively getting weaker and admits to 2 ground level falls within the past year PT and OT ordered for evaluation 11/19/23: Continue with current treatment plan (4) Insulin dependent type 2 diabetes mellitus: Code(s): E11.9 - Type 2 diabetes mellitus without complications; Z79.4 - skilled nursing (current) use of insulin Status: Chronic Assessment and Plan: 11/18/2023: Blood sugars ranging 89-101 A.c. HS Accu-Cheks ordered Hypoglycemic protocol ordered Low-dose sliding scale insulin ordered Last hemoglobin A1c was 4.6 on 10/15/2023 Jardiance on hold 11/19/2023: Continue with current treatment plan (5) Essential (primary) hypertension: Code(s): I10 - Essential (primary) hypertension Status: Chronic Assessment and Plan: 11/18/2023: Blood pressures ranging 102/51 to 112/53 Losartan and Bumex on hold due to labile blood pressure readings 11/19/2023: Blood pressures ranging 86/46 to 107/52 Continue to hold losartan and Bumex (6) HLD (hyperlipidemia): Code(s): E78.5 - Hyperlipidemia, unspecified Status: Chronic Assessment and Plan: 11/18/2023: Continue pravastatin 40 mg Plavix on hold for EGD in the morning with GI team 11/19/2023: No change to current treatment plan (7) Persistent atrial fibrillation: Code(s): I48.19 - Other persistent atrial fibrillation Status: Chronic Assessment and Plan: 11/18/2023: History of chronic AFib Eliquis currently on hold for EGD in the morning per GI team Last echo on 10/23/2023 was reviewed and shown that he was in AFib with normal LV systolic function and an estimated EF of greater than 70%, normal RV systolic function, TAVR with a mean gradient of 7 mmHg. Continue cardiac monitoring 11/19/2023: Discontinue continuous cardiac monitoring Continue to hold Eliquis for EGD today Time Spent With Patient Time with patient: 25 - 35 minutes Subjective Date/time seen: 11/19/23 12:47 Interval history: 11/18/23: This is a 78-year-old male with a significant past medical history of AFib, hypertension, type 2 diabetes mellitus, hyperlipidemia, diabetic peripheral neuropathy, pulmonary hypertension, aortic valve stenosis who presents to the hospital with concerns for GI bleeding.? Patient stated that he has had multiple episodes of dark coffee-ground emesis and black tarry stools that has significantly got worse in the past couple of days. On examination today patient denies any fever, chills, shortness of breath, chest pain, abdominal pain, headache.? He endorses nausea, vomiting, and diarrhea.? His vital signs are stable, he is afebrile, currently on room air.? He does have 2 to 3+ pitting edema to both lower extremities, his bowel sounds are very hypoactive and he states he has not been passing any gas. Work up in the hospital today included labs that were significant for hemoglobin of 7.2, sodium 132, bicarb 20, BUN 33, creatinine 1.7, al
--- NOTE | 2023-11-19 13:47 | PC.NURSE ---
To GI Lab at 1335, IV fluids disconnected. Report given to YANCI Taylor.
[2023-11-19 13:51] LABS: Glucose Point of Care 107 mg/dl (65-105)
[2023-11-19] MEDS: LACTATED RINGERS 1,000 ML 150 ML IV CONT (13:52)
[2023-11-19] MEDS: GENTAMICIN 80MG/SOD CHL 50 ML 80 MG/50 ML BAG 100 MG IVPB (13:53)
--- NOTE | 2023-11-19 13:58 | WPDANESEPPF ---
Anes - Initial Pre Proc Eval Procedure: Operation Date: 11/19/23 15:00 Proposed Procedures p Esophagogastroduodenoscopy & Colonoscopy - Radu Lancaster MD Date/Time: 11/19/23 13:58 Surgeon: Kevin Nance MD Pre Op Diagnosis: GI Bleed Patient Data Age: 78 Gender: M Height: 1.68 m Weight: 95 kg Last Vital Signs Temp 97.1 F L 11/19/23 13:57 Pulse 70 11/19/23 13:57 Resp 20 11/19/23 13:57 BP 91/64 L 11/19/23 13:57 Pulse Ox 100 11/19/23 13:57 O2 Del Method Room Air 11/19/23 13:57 Allergies Allergy/AdvReac Type Severity Reaction Status Date / Time venom-honey bee Allergy Intermediate Swelling Verified 11/19/23 13:50 pantoprazole AdvReac Intermediate Nausea and Verified 11/19/23 13:50 Vomiting Home Medications Medication Instructions Recorded Confirmed Type apremilast 30 mg tablet (Otezla) 30 mg PO BID 01/13/23 11/18/23 History bumetanide 1 mg tablet 1 mg PO DAILY 06/16/23 11/18/23 History clopidogrel 75 mg tablet 75 mg PO QPM 06/16/23 11/18/23 History apixaban 5 mg tablet (Eliquis) 5 mg PO BID 08/19/23 11/18/23 History vitamin B complex 1 tablet PO QPM 08/19/23 11/18/23 History cholecalciferol (vitamin D3) 1,250 1,250 mcg PO WEEKLY #12 caps 10/17/23 11/18/23 Rx mcg (50,000 unit) capsule empagliflozin 10 mg tablet 10 mg PO DAILY 10/22/23 11/18/23 History (Jardiance) insulin glargine 100 unit/mL (3 25 unit subcut QAM 10/22/23 11/18/23 History mL) subcutaneous pen (Basaglar KwikPen U-100 Insulin) losartan 100 mg tablet 100 mg PO DAILY 10/22/23 11/18/23 History pravastatin 40 mg tablet 40 mg PO QPM 10/22/23 11/18/23 History sucralfate 1 gram tablet 1 g PO ACHS #180 tabs 10/31/23 11/18/23 Rx potassium chloride 20 mEq 20 meq PO BID #8 tabs 11/06/23 11/18/23 Rx tablet,extended release ondansetron 4 mg disintegrating 4 mg PO Q8H PRN nausea and 11/16/23 11/18/23 Rx tablet vomiting #14 tabs famotidine 20 mg tablet 40 mg PO Q12HR #180 tabs 11/18/23 11/18/23 Rx Laboratory Tests 11/18/23 11/18/23 11/18/23 11:46 16:32 16:56 WBC RBC Hgb 8.8 L g/dL (14.0-18.0) Hct 26.9 L % (42.0-52.0) MCV MCH MCHC RDW Plt Count MPV Immature Gran % (Auto) Neut % (Auto) Lymph % (Auto) [place] % (Auto) Eos % (Auto) Baso % (Auto) Lymph # (Auto) [place] # (Auto) Eos # (Auto) Baso # (Auto) Abs Immat Gran (auto) Absolute Neuts (auto) Absolute Nucleated RBC Nucleated RBC % Sodium Potassium Chloride Carbon Dioxide Anion Gap BUN Creatinine Estim Creat Clear Calc Estimated GFR Glucose POC Capillary Glucose 89 mg/dl (65-105) Calcium Iron TIBC % Saturation Ferritin Total Bilirubin AST ALT Alkaline Phosphatase Total Protein Albumin Alpha-1-AT Phenotype Ceruloplasmin SOFÍA Screen Mitochondria M2 IgG Ab Hepatitis A IgM Ab Hep Bs Antigen Hep B Core IgM Ab Hepatitis C Ab Screen Crossmatch See Detail 11/18/23 11/19/23 11/19/23 20:47 02:12 04:55 WBC 9.0 K/mm3 (4.5-10.0) RBC 2.79 L M/mm3 (4.6-6.20) Hgb 8.7 L g/dL (14.0-18.0) Hct 26.7 L % (42.0-52.0) MCV 95.7 fl (80-100) MCH 31.2 pg (26-34) MCHC 32.6 g/dl (32-36) RDW 20.5 H % (11.5-14.5) Plt Count 169 k/mm3 (150-375) MPV 11.5 H fl (7.4-10.4) Puja
[2023-11-19] MEDS: AMPICILLIN 2 GM/NS 100 ML 2 GM/100 ML BAG IVPB (14:18)
--- NOTE | 2023-11-19 14:37 | SUR.OPER ---
egd ended at 1435 and colon started at 1440
[2023-11-19 15:06] LABS: Glucose Point of Care 124 mg/dl (65-105)
--- NOTE | 2023-11-19 15:38 | PC.NURSE ---
Returned from GI Lab. Report received from YANCI Jackson.
[2023-11-19 17:18] LABS: Glucose Point of Care 130 mg/dl (65-105)
[2023-11-19] MEDS: SUCRALFATE 1 GM TABLET PO ×2 (17:28→20:29)
[2023-11-19] MEDS: VITAMIN B COMPLEX CAPSULE 1 CAP PO (17:28)
[2023-11-19] MEDS: PRAVASTATIN SODIUM 20 MG TABLET 40 MG PO (17:29)
[2023-11-19] MEDS: PANTOPRAZOLE SODIUM IV 40 MG VIAL IV PUSH (20:28)
[2023-11-19 20:50] LABS: Glucose Point of Care 133 mg/dl (65-105)
[2023-11-20] VITALS (8 sets, daily range): BP systolic 106–121; BP diastolic 48–53; PULSE 67–84; RESP 14–18; TEMP 36.1–36.7; O2SAT 95–100
[2023-11-20] MEDS: SODIUM CHLORIDE 0.9% IV 1,000 ML 100 ML IV CONT (05:36)
[2023-11-20 06:33] LABS: Alanine Aminotransferase 22 U/L (6-50); Albumin Level 1.9 g/dL (3.5-5.1); Alkaline Phosphatase 136 U/L (38-126); Anion Gap 2 mmol/L (8-16); Aspartate Amino Transferase 33 U/L (17-59); Bilirubin,Total 0.7 mg/dL (0.2-1.3); Blood Urea Nitrogen 32 mg/dL (9-20); Calcium 7.9 mg/dL (8.4-10.2); Carbon Dioxide 22 mmol/L (22-30); Chloride 107 mmol/L (98-107); Estimated CRCL calculation 36 ml/min; Estimated Glomerular Filt Rate 39; Glucose 97 mg/dL (65-110); Potassium 3.4 mmol/L (3.4-5.0); Sodium 131 mmol/L (137-145)
[2023-11-20 07:51] LABS: Basophils Percent Auto 0.3 % (0.2-1.2); Eosinophils Absolute Auto 0.2 K/mm3 (0-0.3); Hematocrit 25.4 % (42.0-52.0); Immature Granulocyte Absolute 0.02 K/mm3 (0.00-0.031); Immature Granulocyte Percent A 0.2 % (0-0.5); Lymphocytes Absolute Auto 1.16 K/mm3 (0.9-3.2); Lymphocytes Percent Auto 12.8 % (18.3-44.2); Mean Corpuscular HGB Conc 31.5 g/dl (32-36); Mean Corpuscular Hemoglobin 30.5 pg (26-34); Mean Corpuscular Volume 96.9 fl (80-100); Mean Platelet Volume 11.2 fl (7.4-10.4); Monocytes Absolute Auto 0.6 K/mm3 (0.1-0.6); Monocytes Percent Auto 6.4 % (2.6-8.5); Neutrophils Absolute Auto 7.1 K/mm3 (1.3-6.7); Neutrophils Percent Auto 78.3 % (45.5-73.1); Platelet Count Result 124 k/mm3 (150-375); Red Blood Count 2.62 M/mm3 (4.6-6.20); Red Cell Distribution Width 20.2 % (11.5-14.5); White Blood Count 9.1 K/mm3 (4.5-10.0)
[2023-11-20 08:04] LABS: INR 1.3; Prothrombin Time 17.2 Seconds (11.1-14.7)
[2023-11-20] MEDS: PANTOPRAZOLE SODIUM IV 40 MG VIAL IV PUSH ×2 (08:19→20:07)
[2023-11-20 08:32] LABS: Glucose Point of Care 97 mg/dl (65-105)
--- NOTE | 2023-11-20 08:57 | WPDANESPN ---
Anes - Prog Note Post-Op Date/Time: 11/20/23 08:57 Cardiovascular status: normal Respiratory status: normal Airway patency: baseline Mental status: baseline Post-Op hydration status: normal Vital Signs: Last Vital Signs Temp 36.7 C 11/20/23 05:57 Pulse 67 11/20/23 05:57 Resp 16 11/20/23 05:57 BP 117/50 L 11/20/23 05:57 Pulse Ox 100 11/20/23 05:57 O2 Del Method Room Air 11/19/23 20:00 Pain Score (VAS): 0 I/O: Intake & Output 11/19/23 11/20/23 11/20/23 23:59 07:59 15:59 Intake Total 1120 200 Balance 1120 200 Laboratory Tests 11/20/23 07:41 11/20/23 05:34 11/19/23 11/19/23 11/19/23 11:43 13:49 15:01 WBC RBC Hgb Hct MCV MCH MCHC RDW Plt Count MPV Immature Gran % (Auto) Neut % (Auto) Lymph % (Auto) [place] % (Auto) Eos % (Auto) Baso % (Auto) Lymph # (Auto) [place] # (Auto) Eos # (Auto) Baso # (Auto) Abs Immat Gran (auto) Absolute Neuts (auto) Absolute Nucleated RBC Nucleated RBC % PT INR Sodium Potassium Chloride Carbon Dioxide Anion Gap BUN Creatinine Estim Creat Clear Calc Estimated GFR Glucose POC Capillary Glucose 109 H 107 H 124 H Calcium Total Bilirubin AST ALT Alkaline Phosphatase Total Protein Albumin 11/19/23 11/19/23 11/20/23 17:11 20:23 05:34 WBC RBC Hgb Hct MCV MCH MCHC RDW Plt Count MPV Immature Gran % (Auto) Neut % (Auto) Lymph % (Auto) [place] % (Auto) Eos % (Auto) Baso % (Auto) Lymph # (Auto) [place] # (Auto) Eos # (Auto) Baso # (Auto) Abs Immat Gran (auto) Absolute Neuts (auto) Absolute Nucleated RBC Nucleated RBC % PT INR Sodium 131 L Potassium 3.4 Chloride 107 Carbon Dioxide 22 Anion Gap 2 L BUN 32 H Creatinine 1.70 H Estim Creat Clear Calc 36 Estimated GFR 39 L Glucose 97 POC Capillary Glucose 130 H 133 H Calcium 7.9 L Total Bilirubin 0.7 AST 33 ALT 22 Alkaline Phosphatase 136 H Total Protein 5.0 L Albumin 1.9 L 11/20/23 11/20/23 07:41 08:29 WBC 9.1 RBC 2.62 L Hgb 8.0 L Hct 25.4 L MCV 96.9 MCH 30.5 MCHC 31.5 L RDW 20.2 H Plt Count 124 L MPV 11.2 H Immature Gran % (Auto) 0.2 Neut % (Auto) 78.3 H Lymph % (Auto) 12.8 L [place] % (Auto) 6.4 Eos % (Auto) 2.0 Baso % (Auto) 0.3 Lymph # (Auto) 1.16 [place] # (Auto) 0.6 Eos # (Auto) 0.2 Baso # (Auto) 0.0 Abs Immat Gran (auto) 0.02 Absolute Neuts (auto) 7.1 H Absolute Nucleated RBC 0.0 Nucleated RBC % 0.0 PT 17.2 H D INR 1.3 Sodium Potassium Chloride Carbon Dioxide Anion Gap BUN Creatinine Estim Creat Clear Calc Estimated GFR Glucose POC Capillary Glucose 97 Calcium Total Bilirubin AST ALT Alkaline Phosphatase Total Protein Albumin Post-procedural complaints: none Patient Feedback: Patient satisfied with anesthetic care.
--- NOTE | 2023-11-20 09:05 | PM.DS ---
DS: Admitting Diagnosis Discharge Date 11/21/23 Admitting Diagnosis Acute GI bleeding Acute blood loss anemia Weakness Insulin-dependent type 2 diabetes mellitus Essential hypertension Hyperlipidemia Persistent AFib DS: Discharge Diagnosis Discharge Diagnosis (1) Acute GI bleeding: Code(s): K92.2 - Gastrointestinal hemorrhage, unspecified Status: Acute (2) Acute blood loss anemia: Code(s): D62 - Acute posthemorrhagic anemia Status: Acute (3) Weakness: Code(s): R53.1 - Weakness Status: Acute (4) Insulin dependent type 2 diabetes mellitus: Code(s): E11.9 - Type 2 diabetes mellitus without complications; Z79.4 - manager intermediate (current) use of insulin Status: Chronic (5) Essential (primary) hypertension: Code(s): I10 - Essential (primary) hypertension Status: Chronic (6) HLD (hyperlipidemia): Code(s): E78.5 - Hyperlipidemia, unspecified Status: Chronic (7) Persistent atrial fibrillation: Code(s): I48.19 - Other persistent atrial fibrillation Status: Chronic DS: Summary Hospital Course Reason for hospitalization: Acute GI bleeding Acute blood loss anemia Weakness Insulin-dependent type 2 diabetes mellitus Essential hypertension Hyperlipidemia Persistent AFib Hospital Course: This is a 78-year-old male with a significant past medical history of AFib, hypertension, type 2 diabetes mellitus, hyperlipidemia, diabetic peripheral neuropathy, pulmonary hypertension, aortic valve stenosis who presents to the hospital with concerns for GI bleeding.? Patient stated that he has had multiple episodes of dark coffee-ground emesis and black tarry stools that has significantly got worse in the past couple of days. On examination today patient denies any fever, chills, shortness of breath, chest pain, abdominal pain, headache.? He endorses nausea, vomiting, and diarrhea.? His vital signs are stable, he is afebrile, currently on room air.? He does have 2 to 3+ pitting edema to both lower extremities, his bowel sounds are very hypoactive and he states he has not been passing any gas. Work up in the hospital today included labs that were significant for hemoglobin of 7.2, sodium 132, bicarb 20, BUN 33, creatinine 1.7, alk-phos 133, albumin 2.2.? Patient was given 1 unit of PRBC, Zofran, Pepcid, morphine while in the ED. Of note, he was recently seen in the ED on 11/16/2023 nausea, vomiting, and diarrhea.? He was also noted to have hypoglycemia during that visit.? Workup in the ED on 11/16/[address] of the abdomen pelvis with contrast showed cirrhosis with hypertension, mildly dilated upper abdominal small bowel likely an ileus or early obstruction, large volume ascites, asymmetric gynecomastia left greater than right.? He was given IV fluids, glucose, and nausea medication. He was then sent home with instructions to follow up with his GI doctor. His hemoglobin was noted to be 8.7 at that time. 11/19/23: On examination today patient is alert oriented x3, sitting in a chair.? He still reports nausea, vomiting, diarrhea overnight.? He has no other new complaints today.? Hemoglobin 8.7 today stable.? Plan for EGD with GI services. 11/20/23: Patient denies any new complaints today. He does have quite a bit of edema in BUE, BLE. IVF stopped. Will give IV Bumex today. EGD showing severe esophagitis, no active bleeding. Protonix was ordered BID. 2 polyps were removed and sent for pathology during colonoscopy, no active bleeding noted, he did have some internal hemorrhoids however none that were actively bleeding. Hgb 8.0, Creatinine 1.70. 11/21/2023: patient has no new complaints today. He still has quite a bit of swelling to bilateral upper extremity and bilateral lower extremity. Bumex on hold due to acute kidney injury. We did give him albumin. Patient had paracentesis yesterday with 5 L removal with GI services. Vital signs are stable, he is on room air, he remains afebrile.
--- NOTE | 2023-11-20 12:13 | P.PNIM_ITS ---
Progress Note: A&P Assessment and Plan (1) Acute GI bleeding: Code(s): K92.2 - Gastrointestinal hemorrhage, unspecified Status: Acute Assessment and Plan: 11/18/2023: * Patient reporting coffee-ground emesis and dark tarry stools * History of GI bleed in the past * Hemoglobin 7.2 today down from 8.7 on 11/16/2023 * 1 unit of PRBC was given in the ED * Repeat hemoglobin 8.8 after transfusion * GI consulted and plans for EGD in a.m. * NPO after midnight * Pepcid ordered b.i.d. since he has a Protonix allergy 11/19/23: * Still reporting N/V/D as described above * Hgb sable at 8.7 this morning * EGD planned for this afternoon with GI team * Currently NPO * Continue pepcid BID 11/20/2023: * Hemoglobin 8.0 * EGD showing severe esophagitis, no active bleed * Colonoscopy swelling 2 polyps which were removed for pathology, internal hemorrhoids, no active bleed noted * Plan for paracentesis today * Albumin given today * Continue Protonix b.i.d. per GI recommendation (2) Acute blood loss anemia: Code(s): D62 - Acute posthemorrhagic anemia Status: Acute Assessment and Plan: * see above plan of care (3) Weakness: Code(s): R53.1 - Weakness Status: Acute Assessment and Plan: 11/18/2023: * Patient states that he has been progressively getting weaker and admits to 2 ground level falls within the past year * PT and OT ordered for evaluation 11/19/23: * Continue with current treatment plan (4) Insulin dependent type 2 diabetes mellitus: Code(s): E11.9 - Type 2 diabetes mellitus without complications; Z79.4 - FPC (current) use of insulin Status: Chronic Assessment and Plan: 11/18/2023: * Blood sugars ranging 89-101 * A.c. HS Accu-Cheks ordered * Hypoglycemic protocol ordered * Low-dose sliding scale insulin ordered * Last hemoglobin A1c was 4.6 on 10/15/2023 * Jardiance on hold 11/19/2023: * Continue with current treatment plan (5) Essential (primary) hypertension: Code(s): I10 - Essential (primary) hypertension Status: Chronic Assessment and Plan: 11/18/2023: * Blood pressures ranging 102/51 to 112/53 * Losartan and Bumex on hold due to labile blood pressure readings 11/19/2023: * Blood pressures ranging 86/46 to 107/52 * Continue to hold losartan and Bumex 11/20/2023: * No change to current treatment plan (6) HLD (hyperlipidemia): Code(s): E78.5 - Hyperlipidemia, unspecified Status: Chronic Assessment and Plan: 11/18/2023: * Continue pravastatin 40 mg * Plavix on hold for EGD in the morning with GI team 11/19/2023: * No change to current treatment plan (7) Persistent atrial fibrillation: Code(s): I48.19 - Other persistent atrial fibrillation Status: Chronic Assessment and Plan: 11/18/2023: * History of chronic AFib * Eliquis currently on hold for EGD in the morning per GI team * Last echo on 10/23/2023 was reviewed and shown that he was in AFib with normal LV systolic function and an estimated EF of greater than 70%, normal RV syst olic function, TAVR with a mean gradient of 7 mmHg. * Continue cardiac monitoring 11/19/2023: * Discontinue continuous cardiac monitoring * Continue to hold Eliquis for EGD today 11/20/2023: * No change to current treatment plan Time Spent With Patient Time with patient: Greater than 35 minutes Subjective Date/time seen: 11/20/23 12:13 Interval history: 11/18/23: This is a 78
--- NOTE | 2023-11-20 12:13 | PM.IMPN ---
Progress Note: A&P Assessment and Plan (1) Acute GI bleeding: Code(s): K92.2 - Gastrointestinal hemorrhage, unspecified Status: Acute Assessment and Plan: 11/18/2023: Patient reporting coffee-ground emesis and dark tarry stools History of GI bleed in the past Hemoglobin 7.2 today down from 8.7 on 11/16/2023 1 unit of PRBC was given in the ED Repeat hemoglobin 8.8 after transfusion GI consulted and plans for EGD in a.m. NPO after midnight Pepcid ordered b.i.d. since he has a Protonix allergy 11/19/23: Still reporting N/V/D as described above Hgb sable at 8.7 this morning EGD planned for this afternoon with GI team Currently NPO Continue pepcid BID 11/20/2023: Hemoglobin 8.0 EGD showing severe esophagitis, no active bleed Colonoscopy swelling 2 polyps which were removed for pathology, internal hemorrhoids, no active bleed noted Plan for paracentesis today Albumin given today Continue Protonix b.i.d. per GI recommendation (2) Acute blood loss anemia: Code(s): D62 - Acute posthemorrhagic anemia Status: Acute Assessment and Plan: see above plan of care (3) Weakness: Code(s): R53.1 - Weakness Status: Acute Assessment and Plan: 11/18/2023: Patient states that he has been progressively getting weaker and admits to 2 ground level falls within the past year PT and OT ordered for evaluation 11/19/23: Continue with current treatment plan (4) Insulin dependent type 2 diabetes mellitus: Code(s): E11.9 - Type 2 diabetes mellitus without complications; Z79.4 - manager terminal (current) use of insulin Status: Chronic Assessment and Plan: 11/18/2023: Blood sugars ranging 89-101 A.c. HS Accu-Cheks ordered Hypoglycemic protocol ordered Low-dose sliding scale insulin ordered Last hemoglobin A1c was 4.6 on 10/15/2023 Jardiance on hold 11/19/2023: Continue with current treatment plan (5) Essential (primary) hypertension: Code(s): I10 - Essential (primary) hypertension Status: Chronic Assessment and Plan: 11/18/2023: Blood pressures ranging 102/51 to 112/53 Losartan and Bumex on hold due to labile blood pressure readings 11/19/2023: Blood pressures ranging 86/46 to 107/52 Continue to hold losartan and Bumex 11/20/2023: No change to current treatment plan (6) HLD (hyperlipidemia): Code(s): E78.5 - Hyperlipidemia, unspecified Status: Chronic Assessment and Plan: 11/18/2023: Continue pravastatin 40 mg Plavix on hold for EGD in the morning with GI team 11/19/2023: No change to current treatment plan (7) Persistent atrial fibrillation: Code(s): I48.19 - Other persistent atrial fibrillation Status: Chronic Assessment and Plan: 11/18/2023: History of chronic AFib Eliquis currently on hold for EGD in the morning per GI team Last echo on 10/23/2023 was reviewed and shown that he was in AFib with normal LV systolic function and an estimated EF of greater than 70%, normal RV systolic function, TAVR with a mean gradient of 7 mmHg. Continue cardiac monitoring 11/19/2023: Discontinue continuous cardiac monitoring Continue to hold Eliquis for EGD today 11/20/2023: No change to current treatment plan Time Spent With Patient Time with patient: Greater than 35 minutes Subjective Date/time seen: 11/20/23 12:13 Interval history: 11/18/23: This is a 78-year-old male with a significant past medical history of AFib, hypertension, type 2 diabetes mellitus, hyperlipidemia, diabetic peripheral neuropathy, pulmonary hypertension, aortic valve stenosis who presents to the hospital with concerns for GI bleeding.? Patient stated that he has had multiple episodes of dark coffee-ground emesis and black tarry stools that has significantly got worse in the past couple of days. On examination today patient denies any fever, chills, shortness of breath, chest pain, abdominal pain, hea
[2023-11-20 12:23] LABS: Glucose Point of Care 111 mg/dl (65-105)
[2023-11-20] MEDS: ALBUMIN HUMAN 25% 25 GM/100 ML 200 ML IVPB (13:27)
[2023-11-20 17:00] LABS: Glucose Point of Care 112 mg/dl (65-105)
--- NOTE | 2023-11-20 17:00 | WPDGIPROGNO ---
Progress Note: A&P Assessment and Plan (1) Hematemesis: Code(s): K92.0 - Hematemesis Status: Acute Assessment and Plan: no active bleeding but noted severe erosive esophagitis protonix bid, also carafate egd in 4 months (2) Esophageal ulcer without bleeding: Code(s): K22.10 - Ulcer of esophagus without bleeding Status: Acute Assessment and Plan: ppi bid (3) Acute blood loss anemia: Code(s): D62 - Acute posthemorrhagic anemia Status: Acute Assessment and Plan: stable (4) Cirrhosis of liver: Code(s): K74.60 - Unspecified cirrhosis of liver Status: Acute Assessment and Plan: ? fatty liver work up in progress (5) Ascites of liver: Code(s): R18.8 - Other ascites Status: Acute Assessment and Plan: s/p 5 liters remove pending culture and albumin 2g na diet (6) MANDI (acute kidney injury): Code(s): N17.9 - Acute kidney failure, unspecified Status: Acute Assessment and Plan: creat 1.7 no diuretics for now given some renal failure Subjective Date/time seen: 11/20/23 17:00 Interval history: egd yesterday with severe esophagitis colonoscopy with small polyps removed, no signs of bleeding today had 5 liters of ascitic fluid removed he is comfortable Review of Systems Review of Systems: All systems reviewed & are unremarkable except as noted in HPI and below Exam Const: General: comfortable and no acute distress HENMT: Ears: TM's normal bilaterally Eyes: General: appearance normal, both eyes and all related structures Neck: Neck: supple Resp: Auscultation: clear to auscultation bilaterally Cardio: Rate: regular rate Rhythm: regular rhythm GI: Inspection: distended GI Palp: Yes Soft to palpation and No Tenderness to palpation present (GI) Other: less fluid wave surgical scar from previous hernia repair Skin: General skin exam: normal color Neuro: Speech: normal speech Motor exam (neuro): 5/5 motor strength present throughout Extrem: General: normal to inspection Psych: Mental Status: mental status grossly normal Objective Data Vital Signs Vital Signs: Vital Signs - 24 hr 11/19/23 20:21 11/19/23 20:00 11/20/23 00:20 Temperature 97.8 F 97.6 F Pulse Rate 81 68 Respiratory Rate 16 14 Blood Pressure 130/62 106/51 L Pulse Oximetry 98 100 Oxygen Delivery Room Air 11/19/23 20:00 11/20/23 00:00 11/20/23 04:00 Temperature Pulse Rate 83 69 71 Respiratory Rate Blood Pressure Pulse Oximetry Oxygen Delivery 11/20/23 05:57 11/20/23 08:00 11/20/23 12:09 Temperature 98.0 F 97.6 F Pulse Rate 67 70 Respiratory Rate 16 18 Blood Pressure 117/50 L 121/53 L Pulse Oximetry 100 97 Oxygen Delivery Room Air Intake/Output Intake/Output: Intake & Output 11/17/23 11/18/23 11/19/23 11/20/23 23:59 23:59 23:59 23:59 Intake Total 350 4920 200 Output Total 5000 Balance 350 4920 -4800 Meds/Results Medications: Active Medications Generic Name Dose Route Start Last Admin Trade Name Freq PRN Reason Stop Dose Admin Acetaminophen 650 mg 11/18/23 13:44 Acetaminophen 325 Mg Tablet PO Q4H PRN Mild Pain (1-3) or Fever Bumetanide 1 mg 11/20/23 17:00 Bumetanide Inj 1 Mg/4 Ml Vial IV PUSH 11/20/23 17:01 ONCE ONE Dextrose 12.5 gm 11/18/23 13:47 Dextrose 50% 25 Gm/50 Ml Syringe IV PUSH PRN PRN Hypoglycemia Protocol Glucagon 1 mg 11/18/23 13:47 Glucagon For Inj 1 Mg Vial IM PRN PRN Hypoglycemia Protocol Glucose 15 gm 11/18/23 13:47 Glucose Oral Gel 15 Gm Of Glucse In 37.5 Gm Tube PO PRN PRN Hypoglycemia Protocol Dextrose 1,000 mls @ 100 mls/hr 11/18/23 13:47 Dextrose 5% 1,000 Ml IVPB PRN PRN Hypoglycemia Protocol Insulin Aspart 2 - 5 units 11/18/23 17:00 Insulin Aspart (*Bkc) 100 Units/Ml SUB-Q TIDWM JUNIE
[2023-11-20] MEDS: SUCRALFATE 1 GM TABLET PO ×2 (18:06→20:07)
[2023-11-20] MEDS: PRAVASTATIN SODIUM 20 MG TABLET 40 MG PO (18:06)
[2023-11-20] MEDS: BUMETANIDE INJ 1 MG/4 ML VIAL IV PUSH (18:06)
[2023-11-20] MEDS: VITAMIN B COMPLEX CAPSULE 1 CAP PO (18:06)
[2023-11-20 21:06] LABS: Glucose Point of Care 137 mg/dl (65-105)
[2023-11-21 05:28] LABS: Basophils Percent Auto 0.4 % (0.2-1.2); Eosinophils Absolute Auto 0.2 K/mm3 (0-0.3); Eosinophils Percent Auto 1.8 % (0-4.4); Hematocrit 25.9 % (42.0-52.0); Hemoglobin 8.2 g/dL (14.0-18.0); Immature Granulocyte Absolute 0.03 K/mm3 (0.00-0.031); Immature Granulocyte Percent A 0.4 % (0-0.5); Lymphocytes Absolute Auto 0.95 K/mm3 (0.9-3.2); Lymphocytes Percent Auto 11.4 % (18.3-44.2); Mean Corpuscular HGB Conc 31.7 g/dl (32-36); Mean Corpuscular Hemoglobin 31.2 pg (26-34); Mean Corpuscular Volume 98.5 fl (80-100); Mean Platelet Volume 12.4 fl (7.4-10.4); Monocytes Absolute Auto 0.5 K/mm3 (0.1-0.6); Monocytes Percent Auto 5.9 % (2.6-8.5); Neutrophils Absolute Auto 6.7 K/mm3 (1.3-6.7); Neutrophils Percent Auto 80.1 % (45.5-73.1); Platelet Count Result 117 k/mm3 (150-375); Red Blood Count 2.63 M/mm3 (4.6-6.20); Red Cell Distribution Width 20.4 % (11.5-14.5); White Blood Count 8.4 K/mm3 (4.5-10.0)
[2023-11-21 05:37] LABS: Alanine Aminotransferase 22 U/L (6-50); Albumin Level 2.6 g/dL (3.5-5.1); Alkaline Phosphatase 134 U/L (38-126); Anion Gap 2 mmol/L (8-16); Aspartate Amino Transferase 34 U/L (17-59); Bilirubin,Total 0.9 mg/dL (0.2-1.3); Blood Urea Nitrogen 29 mg/dL (9-20); Calcium 8.4 mg/dL (8.4-10.2); Carbon Dioxide 25 mmol/L (22-30); Chloride 107 mmol/L (98-107); Estimated CRCL calculation 36 ml/min; Estimated Glomerular Filt Rate 39; Glucose 117 mg/dL (65-110); Potassium 3.6 mmol/L (3.4-5.0); Sodium 134 mmol/L (137-145)
[2023-11-21] MEDS: SUCRALFATE 1 GM TABLET PO ×3 (05:51→16:58)
[2023-11-21 05:53] VITALS: BP 126/46; PULSE 72; RESP 16; TEMP 36.4; O2SAT 100
[2023-11-21 08:04] LABS: Glucose Point of Care 114 mg/dl (65-105)
[2023-11-21] MEDS: ALBUMIN HUMAN 25% 25 GM/100 ML 200 ML IVPB (09:03)
[2023-11-21] MEDS: PANTOPRAZOLE SODIUM IV 40 MG VIAL IV PUSH (09:03)
[2023-11-21 09:50] VITALS: BP 108/43; PULSE 76; RESP 18; O2SAT 100
--- NOTE | 2023-11-21 10:58 | PCNFU ---
Nutrition Follow-Up Complete: Altered GI function as related to GI Bleed as evidenced by NPO. goal: Meet estimated nutritional needs. patient is meeting goal. No new goal. Pt current nutrition is DBCC. Last recorded weight is 95 kg, stable Bowel Motility:+BM reported 3 Labs Reviewed:Glu 117, GFR 39, BUN 29, Na 134, Alb 2.6,Hct 25.9,Hgb 8.2 Meds Noted: Vit B, Protonix. Skin: WNL Additional Notes: Patient had EGD 11/19-severe esophagitis noted. Paracentesis performed 11/19-5,000 ml removed. Pateint is tolerated 100% of DBCC diet. Diet supplements have been ordered of Glucerna shakes BID. Providing an additional 220 kcals and 10 gms protein. Agree with diet orders. Will monitor weight, labs, skin, diet orders, meds every 7 days.
[2023-11-21 12:12] LABS: Glucose Point of Care 149 mg/dl (65-105)
[2023-11-21 14:19] VITALS: BP 114/49; PULSE 75; RESP 18; TEMP 36.4; O2SAT 100
--- NOTE | 2023-11-21 16:39 | WPDGIPROGNO ---
Progress Note: A&P Assessment and Plan (1) Hematemesis: Code(s): K92.0 - Hematemesis Status: Acute Assessment and Plan: no active bleeding but noted severe erosive esophagitis protonix bid, also carafate egd in 4 months to assess healing ok to resume blood thinner in about 5 days (2) Esophageal ulcer without bleeding: Code(s): K22.10 - Ulcer of esophagus without bleeding Status: Acute Assessment and Plan: ppi bid (3) Acute blood loss anemia: Code(s): D62 - Acute posthemorrhagic anemia Status: Acute Assessment and Plan: stable (4) Cirrhosis of liver: Code(s): K74.60 - Unspecified cirrhosis of liver Status: Acute Assessment and Plan: ? fatty liver work up in progress (5) Ascites of liver: Code(s): R18.8 - Other ascites Status: Acute Assessment and Plan: s/p 5 liters removed pending culture and albumin 2g na diet (6) MANDI (acute kidney injury): Code(s): N17.9 - Acute kidney failure, unspecified Status: Acute Assessment and Plan: creat stable 1.7 probably low dose diuretics when renal function better noted [email or web address] Subjective Date/time seen: 11/21/23 16:39 Interval history: he is comfortable, he is eating, no signs of gib Review of Systems Review of Systems: All systems reviewed & are unremarkable except as noted in HPI and below Exam Const: General: comfortable and no acute distress HENMT: Ears: TM's normal bilaterally Eyes: General: appearance normal, both eyes and all related structures Neck: Neck: supple Resp: Auscultation: clear to auscultation bilaterally Cardio: Rate: regular rate Rhythm: regular rhythm GI: Inspection: distended GI Palp: Yes Soft to palpation and No Tenderness to palpation present (GI) Other: less fluid wave surgical scar from previous hernia repair Skin: General skin exam: normal color Neuro: Speech: normal speech Motor exam (neuro): 5/5 motor strength present throughout Extrem: General: pedal edema Psych: Mental Status: mental status grossly normal Objective Data Vital Signs Vital Signs: Vital Signs - 24 hr 11/20/23 17:51 11/20/23 20:00 11/20/23 20:00 Temperature 97.0 F L 97.6 F Pulse Rate 72 84 Respiratory Rate 16 14 Blood Pressure 121/48 L 118/50 L Pulse Oximetry 96 95 Oxygen Delivery Room Air 11/20/23 23:44 11/21/23 05:53 11/21/23 08:57 Temperature 97.6 F Pulse Rate 72 Respiratory Rate 16 Blood Pressure 126/46 L Pulse Oximetry 95 100 Oxygen Delivery Room Air Room Air 11/21/23 09:50 11/21/23 14:19 Temperature 97.6 F Pulse Rate 76 75 Respiratory Rate 18 18 Blood Pressure 108/43 L 114/49 L Pulse Oximetry 100 100 Oxygen Delivery Intake/Output Intake/Output: Intake & Output 11/18/23 11/19/23 11/20/23 11/21/23 23:59 23:59 23:59 23:59 Intake Total 350 4920 1110 1240 Output Total 5000 850 Balance 350 4920 -3890 390 Meds/Results Medications: Active Medications Generic Name Dose Route Start Last Admin Trade Name Freq PRN Reason Stop Dose Admin Acetaminophen 650 mg 11/18/23 13:44 Acetaminophen 325 Mg Tablet PO Q4H PRN Mild Pain (1-3) or Fever Dextrose 12.5 gm 11/18/23 13:47 Dextrose 50% 25 Gm/50 Ml Syringe IV PUSH PRN PRN Hypoglycemia Protocol Glucagon 1 mg 11/18/23 13:47 Glucagon For Inj 1 Mg Vial IM PRN PRN Hypoglycemia Protocol Glucose 15 gm 11/18/23 13:47 Glucose Oral Gel 15 Gm Of Glucse In 37.5 Gm Tube PO PRN PRN Hypoglycemia Protocol Dextrose 1,000 mls @ 100 mls/hr 11/18/23 13:47 Dextrose 5% 1,000 Ml IVPB PRN PRN Hypoglycemia Protocol Insulin Aspart 2 - 5 units 11/18/23 17:00 Insulin Aspart (*Bkc) 100 Units/Ml SUB-Q TIDWM JUNIE Protocol Insulin Aspart 1 - 2 units 11/18/23 21:00 Insulin Aspart (*Bkc) 100 Units/Ml SUB-Q HS JUNIE Pro
[2023-11-21 17:00] LABS: Glucose Point of Care 140 mg/dl (65-105)
[2023-11-21] MEDS: VITAMIN B COMPLEX CAPSULE 1 CAP PO (17:39)
[2023-11-21] MEDS: PRAVASTATIN SODIUM 20 MG TABLET 40 MG PO (17:40)
[2023-11-24 04:53] LABS: Mitochondrial (M2) Ab (IgG) <=20.0 U (<=20.0)
[2023-11-24 13:45] LABS: Albumin Peritoneal Fluid 0.6 g/dL
[2023-11-24 22:27] LABS: Ceruloplasmin 30 mg/dL (18-36)
--- NOTE | 2023-11-26 10:42 | PC.NURSE ---
Lab called with out pt K+ of 2.8. Lab value faxed to Dr. Downs.
== END 2023-11-21 18:20 | disposition home or self-care (01) | DRG 381 ==
LOC: ANHED 12:57 → ANH2MED 13:24
PROVIDERS: Internal Medicine Gastroenterology; Nurse Practitioner Acute Care; Admitting Provider Internal Medicine; Emergency Provider Student in an Organized Health Care Education/Training Program; PCP Emergency Medicine; Visit Provider Internal Medicine
PROC: 0DJ08ZZ Inspection of Upper Intestinal Tract, Via Natural or Artificial Opening Endoscopic (ICD-10-PCS; CPT 43235; principal; 2023-11-19 15:00)
DX: K22.11 Ulcer of esophagus with bleeding (principal); D62 Acute posthemorrhagic anemia; I48.19 Other persistent atrial fibrillation; R18.8 Other ascites; I25.10 Atherosclerotic heart disease of native coronary artery without angina pectoris; I10 Essential (primary) hypertension; I35.0 Nonrheumatic aortic (valve) stenosis; I27.20 Pulmonary hypertension, unspecified; E11.22 Type 2 diabetes mellitus with diabetic chronic kidney disease; E11.42 Type 2 diabetes mellitus with diabetic polyneuropathy; E78.5 Hyperlipidemia, unspecified; K63.5 Polyp of colon; K44.9 Diaphragmatic hernia without obstruction or gangrene; K74.60 Unspecified cirrhosis of liver; K22.0 Achalasia of cardia; R19.7 Diarrhea, unspecified; M15.9 Polyosteoarthritis, unspecified; Z79.01 Long term (current) use of anticoagulants; Z79.4 Long term (current) use of insulin; Z87.442 Personal history of urinary calculi; Z95.2 Presence of prosthetic heart valve; Z87.891 Personal history of nicotine dependence
CPT/HCPCS: 36415; 36430; 49083; 74177; 80053; 80074; 82042; 82104; 82390; 82728; 82948; 83520; 83540; 83550; 83605; 83690; 85014; 85018; 85025; 85610; 85730; 86038; 86850; 86900; 86901; 86923; 87070; 87075; 87205; 88305; 96361; 96374; 96375; 96376; 97110; 97161; 97165; 97530; 97535; 99284; 99285; A9270; C9113; J0290; J1580; J1939; J2270; J2405; J2704; J3480; J7030; J7050; J7120; P9016; P9047; Q9967

== ENCOUNTER 2023-11-26 09:27 | Outpatient (CLI) | payer MEDICARE, SELFPAY ==
[2023-11-26 10:38] LABS: Alanine Aminotransferase 25 U/L (6-50); Albumin Level 2.4 g/dL (3.5-5.1); Alkaline Phosphatase 149 U/L (38-126); Anion Gap 6 mmol/L (8-16); Aspartate Amino Transferase 33 U/L (17-59); Bilirubin,Total 1.3 mg/dL (0.2-1.3); Blood Urea Nitrogen 17 mg/dL (9-20); Calcium 8.3 mg/dL (8.4-10.2); Carbon Dioxide 23 mmol/L (22-30); Chloride 104 mmol/L (98-107); Estimated Glomerular Filt Rate > 60; Glucose 118 mg/dL (65-110); Potassium 2.8 mmol/L (3.4-5.0); Sodium 133 mmol/L (137-145)
== END 2023-11-26 09:28 | disposition home or self-care (01) ==
PROVIDERS: PCP Emergency Medicine; Visit Provider Nurse Practitioner Acute Care
DX: N17.9 Acute kidney failure, unspecified (principal)
CPT/HCPCS: 36415; 80053

== ENCOUNTER 2023-11-26 14:23 | Observation (INO) | payer MEDICARE, SELFPAY ==
[2023-11-26] VITALS (35 sets, daily range): BP systolic 95–147; BP diastolic 41–66; PULSE 63–85; RESP 13–24; TEMP 36.4–36.6; O2SAT 99–100; BMI 31.7
--- NOTE | ~2023-11-26 | CT_ITS ---
EXAMINATION: CT abdomen pelvis w con DATE: 11/26/2023 19:09 INDICATION: Diarrhea TECHNIQUE: Computed tomography (CT) of the abdomen and pelvis was performed with 100 cc Omnipaque 350 intravenous contrast. The dose-length product was 1341.67 mGy-cm. Automated exposure control and ite rative reconstruction technique were employed. COMPARISON: CT dated 11/16/2023. FINDINGS: Small pleural effusions. Heart size normal. There is dependent atelectasis. There are groun dglass opacities in the lung bases with interlobular septal thickening, possibly edema. There is cirrhosis of the liver. There is large amount of ascites. There is diffuse subcutaneous chong a. There are multiple ventral hernias containing fat and fluid. No significant vascular abnormality. No lymphadenopathy. Gallbladder is contracted and contains stones. There is severe lumbar spondylosis with grade 1 spondylolisthesis at L4-5. There is nonobstructing right nephrolithiasis. There is a le ft renal cyst. No significant vascular abnormality. No lymphadenopathy. There is gynecomastia. IMPRESSION: 1. Groundglass opacities in the lung bases with bilateral pleural effusions and underlying compressiv e atelectasis. Findings suspicious for edema. 2: Cirrhosis of the liver with large amount of ascites and diffuse subcutaneous edema. 3: Ventral wall hernias containing fat and fluid. 4: Cholelithiasis. Nonobstructing right nephrolithiasis. Reviewed, dictated and finalized at location A. IMPRESSION: 1. Groundglass opacities in the lung bases with bilateral pleural effusions and underlying compressive atelectasis. Findings suspicious for edema. 2: Cirrhosis of the liver with large amount of ascites and diffuse subcutaneou s edema. 3: Ventral wall hernias containing fat and fluid. 4: Cholelithiasis. Nonobstructing right nephrolithiasis.
[2023-11-26 14:55] LABS: Basophils Absolute Auto 0.1 K/mm3 (0.0-0.1); Basophils Percent Auto 0.5 % (0.2-1.2); Eosinophils Absolute Auto 0.1 K/mm3 (0-0.3); Eosinophils Percent Auto 0.9 % (0-4.4); Hematocrit 23.8 % (42.0-52.0); Hemoglobin 7.9 g/dL (14.0-18.0); Immature Granulocyte Absolute 0.06 K/mm3 (0.00-0.031); Immature Granulocyte Percent A 0.5 % (0-0.5); Lymphocytes Absolute Auto 1.13 K/mm3 (0.9-3.2); Lymphocytes Percent Auto 9.7 % (18.3-44.2); Mean Corpuscular HGB Conc 33.2 g/dl (32-36); Mean Corpuscular Hemoglobin 31.6 pg (26-34); Mean Corpuscular Volume 95.2 fl (80-100); Monocytes Absolute Auto 0.6 K/mm3 (0.1-0.6); Monocytes Percent Auto 5.3 % (2.6-8.5); Neutrophils Absolute Auto 9.6 K/mm3 (1.3-6.7); Neutrophils Percent Auto 83.1 % (45.5-73.1); Platelet Count Result 112 k/mm3 (150-375); Red Cell Distribution Width 19.9 % (11.5-14.5); White Blood Count 11.6 K/mm3 (4.5-10.0)
--- NOTE | 2023-11-26 14:56 | ED.RECABL ---
HPI - Recheck/Abnormal Lab/Rx General Chief Complaint: Recheck/Abnormal Lab/Rx Stated Complaint: abnormal labs, ?hypokalemia Time Seen by Provider: 11/26/23 14:30 History of Present Illness HPI narrative: Patient was recently admitted here for MANDI presents with low potassium on outpatient labs. He has been having chronic diarrhea for the last few weeks. He has been taking potassium pills already. Related Data Home Medications Medication Instructions Recorded Confirmed apremilast 30 mg tablet (Otezla) 30 mg PO BID 01/13/23 11/18/23 bumetanide 1 mg tablet 1 mg PO DAILY 06/16/23 11/18/23 clopidogrel 75 mg tablet 75 mg PO QPM 06/16/23 11/18/23 apixaban 5 mg tablet (Eliquis) 5 mg PO BID 08/19/23 11/18/23 vitamin B complex 1 tablet PO QPM 08/19/23 11/18/23 empagliflozin 10 mg tablet 10 mg PO DAILY 10/22/23 11/18/23 (Jardiance) insulin glargine 100 unit/mL (3 25 unit subcut QAM 10/22/23 11/18/23 mL) subcutaneous pen (Basaglar KwikPen U-100 Insulin) losartan 100 mg tablet 100 mg PO DAILY 10/22/23 11/18/23 pravastatin 40 mg tablet 40 mg PO QPM 10/22/23 11/18/23 Allergies Allergy/AdvReac Type Severity Reaction Status Date / Time venom-honey bee Allergy Intermediate Swelling Verified 11/26/23 14:33 pantoprazole AdvReac Intermediate Nausea and Verified 11/26/23 14:33 Vomiting Review of Systems Review of Systems: CONST: Generalized weakness HEENT: No sore throat C/V: No chest pain RESP: No cough GI: Diarrhea : No dysuria. M/S: No joint pain. SKIN: No rash. NEURO: [No headache or focal numbness or weakness] PSYCH: [No depression] [facility] Past Medical History Medical History (Updated 11/26/23 @ 14:56 by Linda Marcus MD) MANDI (acute kidney injury) Chronic anticoagulation Patient takes rivaroxaban for stroke prophylaxis given persistent atrial fibrillation. Diabetic peripheral neuropathy Essential hypertension Generalized osteoarthritis Hematemesis Hernia (~1989) History of kidney stones Hyperlipidemia Inflammatory arthritis Insulin dependent type 2 diabetes mellitus Hemoglobin A1c was 7.7% on 12/28/2020. Kidney stone (~1976) Moderate aortic valve stenosis Nonrheumatic moderate aortic stenosis noted on echocardiogram on 11/28/2020 with a valve area of 1.08 cm2. Moderate pulmonary hypertension Estimated peak RVSP 48 mmHg on echo on 11/28/2020. Persistent atrial fibrillation Psoriasis Surgical History Surgical History History of bilateral cataract extraction History of eye surgery Retinal surgery due to wrinkling. History of heart valve replacement (~06/15/23) History of loop recorder times 2 since removed History of surgery on arm Left upper extremity tendon repair. History of ventral hernia repair Family History Family History Father , 70 -- Diabetes cause of Diabetes mellitus Hypertension Mother , 35 -- [place] Brain bleed Hypertension Social History Social History Social History: Surrogate decision maker: Olivia Jewell, spouse. He has 3 children. Code status: Full code. Smoking packs per day: 2 Smoking cigarettes per day: 40.0 Years smoked: 5 Smoking pack-years: 10.00 Smoking status: Former smoker Additional smoking assessment comments: smoke as a teenager Alcohol intake: never Substance use: never Substance use type: does not use Do You Feel Safe in your Home?: Yes Lack of Transportation: No Lack of Food: Never True Current Housing: Decline to Answer Concerned About Future Housing: Decline to Answer Difficulty Paying Gas/Electric Bills: Decline to Answer Difficulty Paying for Meds: Decline to Answer Currently Unemployed: Decline to Answer Education: Decline to Answer Difficulty w/ Childcare or Family Care: Decline to Answer Living arran
[2023-11-26] MEDS: POTASSIUM CHLORIDE 20 MEQ ER TABLET 40 MEQ PO (15:00)
[2023-11-26] MEDS: LACTATED RINGERS 1,000 ML 999 ML IV CONT (15:01)
[2023-11-26] MEDS: KCL 20 MEQ/SW 100 ML 100 ML 50 MEQ IVPB (15:01)
[2023-11-26 15:07] LABS: Anion Gap 7 mmol/L (8-16); Blood Urea Nitrogen 18 mg/dL (9-20); Calcium 8.1 mg/dL (8.4-10.2); Carbon Dioxide 21 mmol/L (22-30); Chloride 104 mmol/L (98-107); Estimated CRCL calculation 47 ml/min; Estimated Glomerular Filt Rate 59; Glucose 129 mg/dL (65-110); Magnesium 1.8 mg/dL (1.6-2.3); Potassium 2.8 mmol/L (3.4-5.0); Sodium 132 mmol/L (137-145)
[2023-11-26] MEDS: POTASSIUM CHLORIDE 20 MEQ PACKET (FOR LIQUID) 40 MEQ PO (15:18)
[2023-11-26] MEDS: LOPERAMIDE HCL 2 MG CAPSULE 4 MG PO (15:20)
[2023-11-26] MEDS: LOPERAMIDE HCL 2 MG CAPSULE PO (17:21)
[2023-11-26 17:42] LABS: Toxigenic C. Diff NEGATIVE (NEGATIVE)
[2023-11-26 17:45] LABS: Anion Gap 4 mmol/L (8-16); Blood Urea Nitrogen 18 mg/dL (9-20); Calcium 7.9 mg/dL (8.4-10.2); Carbon Dioxide 23 mmol/L (22-30); Chloride 105 mmol/L (98-107); Estimated CRCL calculation 51 ml/min; Estimated Glomerular Filt Rate > 60; Glucose 113 mg/dL (65-110); Potassium 3.5 mmol/L (3.4-5.0); Sodium 132 mmol/L (137-145)
--- NOTE | 2023-11-26 22:35 | ADMGEN ---
This patient, Damir Jewell, was admitted to Medical Room 241-. Patient/family oriented to hospital policies and general routines including ID bracelet, bed and alarms, visiting hours, pain management, procedures, bathroom and other care routines, personal items, smoking policy, room service/diet, and visiting hours. Information on how to activate the Rapid Response Team has been discussed. Patient/Family are encouraged to report perceived risks to care and to ask questions if they do not understand what they are told or what they should do.
--- NOTE | 2023-11-26 22:38 | PM.IMHP ---
H&P: HPI History of Present Illness Date/Time: 11/26/23 22:38 Chief Complaint: Hypokalemia. This is an 88-year-old male patient with past medical history of liver cirrhosis recent admission for acute kidney injury and low potassium type 2 diabetes mellitus. Chronic atrial fibrillation on anticoagulation hyperlipidemia chronic hypertension who came to the emergency room because of low potassium. Patient was sent from his PCP office to emergency room because of low potassium. Patient has been having chronic diarrhea for the past few weeks. He is on potassium supplements. Patient is awake alert not in any acute distress. Denies any fever chills dizziness lightheadedness no blurred vision chest pains no shortness breath no cough no nausea no vomiting. Complains of chronic diarrhea. Denies any dysuria no muscle and joint pains. Complains of chronic fatigue. Vital signs in the emergency room was stable. WBC were 11.6 hemoglobin 10.9 hematocrit 23.8 platelet count 112. Sodium 132 potassium 3.5 chloride 105 carbon dioxide 23 BUN 18 creatinine 1.10. Glucose 113. Calcium 7.9.. Magnesium 1.8. Stool C diff PCR negative. CT scan of the abdomen and pelvis showed ground-glass opacities in the lung bases with pleural effusions in underlying compressive atelectasis findings suspicious for edema. Cirrhosis of liver with large amount of ascites and diffuse subcutaneous edema. Ventral wall hernias containing fat and fluid. Cholelithiasis nonobstructing right nephrolithiasis. Patient was given magnesium and potassium supplements in the emergency room. Review of Systems Review of Systems: A 12 point review of system is done and is only positive it indicated in the history of present illness. [facility] Past Medical History Medical History (Updated 11/26/23 @ 14:56 by Linda Marcus MD) MANDI (acute kidney injury) Chronic anticoagulation Patient takes rivaroxaban for stroke prophylaxis given persistent atrial fibrillation. Diabetic peripheral neuropathy Essential hypertension Generalized osteoarthritis Hematemesis Hernia (~1989) History of kidney stones Hyperlipidemia Inflammatory arthritis Insulin dependent type 2 diabetes mellitus Hemoglobin A1c was 7.7% on 12/28/2020. Kidney stone (~1976) Moderate aortic valve stenosis Nonrheumatic moderate aortic stenosis noted on echocardiogram on 11/28/2020 with a valve area of 1.08 cm2. Moderate pulmonary hypertension Estimated peak RVSP 48 mmHg on echo on 11/28/2020. Persistent atrial fibrillation Psoriasis Surgical History Surgical History History of bilateral cataract extraction History of eye surgery Retinal surgery due to wrinkling. History of heart valve replacement (~06/15/23) History of loop recorder times 2 since removed History of surgery on arm Left upper extremity tendon repair. History of ventral hernia repair Family History Family History Father , 70 -- Diabetes cause of Diabetes mellitus Hypertension Mother , 35 -- [place] Brain bleed Hypertension Social History Social History Social History: Surrogate decision maker: Olivia Jewell, spouse. He has 3 children. Code status: Full code. Smoking packs per day: 2 Smoking cigarettes per day: 40.0 Years smoked: 5 Smoking pack-years: 10.00 Smoking status: Former smoker Additional smoking assessment comments: smoke as a teenager Alcohol intake: never Substance use: never Substance use type: does not use Do You Feel Safe in your Home?: Yes Lack of Transportation: No Lack of Food: Never True Current Housing: I Have Housing Concerned About Future Housing: No Difficulty Paying Gas/Electric Bills: No Difficulty Paying for Meds: No Currently Unemployed: No Education: Trade/Vocational Certificate D
[2023-11-27 01:16] LABS: Glucose Point of Care 104 mg/dl (65-105)
[2023-11-27 05:33] VITALS: BP 112/44; PULSE 73; RESP 14; TEMP 36.7; O2SAT 100
[2023-11-27] MEDS: SUCRALFATE 1 GM TABLET PO ×4 (06:26→20:39)
[2023-11-27 07:48] LABS: Anion Gap 3 mmol/L (8-16); Blood Urea Nitrogen 16 mg/dL (9-20); Carbon Dioxide 24 mmol/L (22-30); Chloride 106 mmol/L (98-107); Estimated CRCL calculation 53 ml/min; Estimated Glomerular Filt Rate > 60; Glucose 80 mg/dL (65-110); Potassium 3.2 mmol/L (3.4-5.0); Sodium 133 mmol/L (137-145)
[2023-11-27 08:00] VITALS: BP 94/43
[2023-11-27 08:31] LABS: Glucose Point of Care 87 mg/dl (65-105)
[2023-11-27] MEDS: PANTOPRAZOLE 40 MG TABLET PO ×2 (09:17→20:39)
[2023-11-27] MEDS: POTASSIUM CHLORIDE 20 MEQ ER TABLET 40 MEQ PO (09:17)
[2023-11-27] MEDS: APIXABAN 5 MG TABLET PO ×2 (09:17→20:39)
[2023-11-27 09:30] VITALS: BP 96/48
[2023-11-27 11:02] VITALS: BMI 31.7
[2023-11-27 11:59] LABS: Glucose Point of Care 155 mg/dl (65-105)
--- NOTE | 2023-11-27 13:51 | PC.NURSE ---
On 11/27/23, the student, [Nishi Martinez], provided care and completed [facility] on this patient. I have reviewed the student's documentation and agree with the findings.
[2023-11-27 13:55] VITALS: BP 111/50; PULSE 74; RESP 16; TEMP 36.6; O2SAT 100
--- NOTE | 2023-11-27 14:34 | PM.IMPN ---
Progress Note: A&P Assessment and Plan (1) Acute hypokalemia: Code(s): E87.6 - Hypokalemia Status: Acute Assessment and Plan: Hypokalemia. Patient given potassium supplements in the emergency room. Follow BMP. Type 2 diabetes mellitus. Sliding scale insulin correction. Chronic atrial fibrillation. Continue Eliquis. Hyperlipidemia. Continue statins. (2) Diarrhea: Code(s): R19.7 - Diarrhea, unspecified Status: Acute Assessment and Plan: Patient states his diarrhea is chronic. Patient takes 20 mEq potassium at home. C diff negative. Check stool for WBC. Check stool culture. CT Without evidence of acute infection (3) Generalized weakness: Code(s): R53.1 - Weakness Status: Acute Assessment and Plan: Patient states that he has worsening leg weakness. When discussing with care radiation during last hospitalization home health was offered to the patient and he denied at that time. Will have a repeat PT and OT evaluation. Patient may need placement. (4) Insulin dependent type 2 diabetes mellitus: Code(s): E11.9 - Type 2 diabetes mellitus without complications; Z79.4 - USP (current) use of insulin Status: Chronic Assessment and Plan: Insulin Lispro sliding scale, Accu-checks qAc and HS and Hold oral hypoglycemics Initiate hypoglycemic precautions HgbA1c on 10/15/23 was 4.6 (5) Essential (primary) hypertension: Code(s): I10 - Essential (primary) hypertension Status: Chronic Assessment and Plan: Continue home medication of losartan. Hold Bumex. (6) Cirrhosis of liver: Code(s): K74.60 - Unspecified cirrhosis of liver Status: Acute Assessment and Plan: Cirrhosis of liver with ascites. Hold diuretic because of hypokalemia. Pt on Bumex due to severe aortic stenosis. (7) Moderate aortic valve stenosis: Code(s): I35.0 - Nonrheumatic aortic (valve) stenosis Status: Acute Assessment and Plan: History of TAVR. Currently on Eliquis and Plavix. Subjective Date/time seen: 11/27/23 14:34 Interval history: patient states he is doing well today. He does feel some weakness in his bilateral lower extremities. During his last hospitalization he was not interested in therapy but he is reconsidering at this time. Will order PT and OT evaluation for the patient. Patient's electrolytes have been corrected. Exam Narrative: GENERAL: Comfortable, no acute distress HENMT: moist mucous membranes EYES: EOM intact b/l NECK: no lymphadenopathy RESPIRATORY: clear to auscultation CARDIO: Rate controlled, murmur present GI: soft, nontender, bowel sounds present SKIN: no rashes EXTREMITIES: +1 pitting edema, no redness or tenderness Objective Data Vital Signs Vital Signs: Vital Signs - 24 hr 11/26/23 14:45 11/26/23 14:46 11/26/23 15:15 Temperature Pulse Rate 66 66 65 Respiratory Rate 19 16 20 Blood Pressure 99/52 L Pulse Oximetry 99 100 Oxygen Delivery 11/26/23 15:16 11/26/23 17:32 11/26/23 15:54 Temperature Pulse Rate 67 72 66 Respiratory Rate 18 14 14 Blood Pressure 105/54 L 126/58 L Pulse Oximetry 100 100 100 Oxygen Delivery 11/26/23 16:00 11/26/23 16:20 11/26/23 16:44 Temperature Pulse Rate 66 68 67 Respiratory Rate 19 17 14 Blood Pressure Pulse Oximetry 100 100 99 Oxygen Delivery 11/26/23 16:45 11/26/23 16:47 11/26/23 17:00 Temperature Pulse Rate 63 64 65 Respiratory Rate 13 14 15 Blood Pressure 121/53 L Pulse Oximetry 100 100 100 Oxygen Delivery 11/26/23 17:02 11/26/23 17:15 11/26/23 17:17 Temperature Pulse Rate 72 71 69 Respiratory Rate 14 15 15 Blood Pressure 121/51 L 127/59 L Pulse Oximetry Oxygen Delivery 11/26/23 17:38 11/26/23 17:45 11/26/23 18:03 Temperature Pulse Rate 71 66 73 Respiratory Rate 15 18 16 Blood Pressure Pul
[2023-11-27 16:54] LABS: Glucose Point of Care 86 mg/dl (65-105)
[2023-11-27] MEDS: POTASSIUM CHLORIDE 20 MEQ ER TABLET PO (17:19)
[2023-11-27] MEDS: VITAMIN B COMPLEX CAPSULE 1 CAP PO (17:19)
[2023-11-27] MEDS: CLOPIDOGREL BISULFATE 75 MG TABLET PO (17:19)
[2023-11-27] MEDS: PRAVASTATIN SODIUM 20 MG TABLET 40 MG PO (17:19)
[2023-11-27 19:56] VITALS: BP 115/58; PULSE 73; RESP 18; TEMP 36.1; O2SAT 100
[2023-11-27 21:02] LABS: Glucose Point of Care 86 mg/dl (65-105)
[2023-11-28 04:11] VITALS: BP 120/60; PULSE 78; RESP 18; TEMP 36.1; O2SAT 100
[2023-11-28] MEDS: SUCRALFATE 1 GM TABLET PO ×3 (05:43→17:01)
[2023-11-28 06:10] LABS: Hematocrit 24.2 % (42.0-52.0); Hemoglobin 7.9 g/dL (14.0-18.0); Immature Platelet Fraction Pct 6.8 % (0.9-11.2); Mean Corpuscular HGB Conc 32.6 g/dl (32-36); Mean Corpuscular Hemoglobin 31.1 pg (26-34); Mean Corpuscular Volume 95.3 fl (80-100); Mean Platelet Volume 11.8 fl (7.4-10.4); Platelet Count Result 115 k/mm3 (150-375); Red Blood Count 2.54 M/mm3 (4.6-6.20); Red Cell Distribution Width 19.5 % (11.5-14.5); White Blood Count 11.4 K/mm3 (4.5-10.0)
[2023-11-28 06:22] LABS: Anion Gap 1 mmol/L (8-16); Blood Urea Nitrogen 17 mg/dL (9-20); Calcium 8.1 mg/dL (8.4-10.2); Carbon Dioxide 26 mmol/L (22-30); Chloride 103 mmol/L (98-107); Estimated CRCL calculation 53 ml/min; Estimated Glomerular Filt Rate > 60; Glucose 99 mg/dL (65-110); Potassium 3.9 mmol/L (3.4-5.0); Sodium 130 mmol/L (137-145)
[2023-11-28 08:11] LABS: Glucose Point of Care 98 mg/dl (65-105)
[2023-11-28] MEDS: LOSARTAN POTASSIUM 100 MG TABLET PO (09:04)
[2023-11-28] MEDS: PANTOPRAZOLE 40 MG TABLET PO (09:04)
[2023-11-28] MEDS: POTASSIUM CHLORIDE 20 MEQ ER TABLET PO ×2 (09:04→17:01)
[2023-11-28] MEDS: APIXABAN 5 MG TABLET PO (10:29)
[2023-11-28 11:10] LABS: Glucose Point of Care 152 mg/dl (65-105)
[2023-11-28 12:07] LABS: Glucose Point of Care 171 mg/dl (65-105)
--- NOTE | 2023-11-28 13:21 | PC.NURSE ---
On 11/28/23, the student, [Luis Fernando Jimenez], provided care and completed [facility] documentation on this patient. I have reviewed the student's documentation and agree with the findings.
[2023-11-28 14:10] VITALS: BP 100/48; PULSE 66; RESP 17; TEMP 36.4; O2SAT 96
--- NOTE | 2023-11-28 14:24 | PC.NURSE ---
On 11/28/23, the student, [Randa Guillen], provided care and completed [facility] documentation on this patient. I have reviewed the student's documentation and agree with the findings.
--- NOTE | 2023-11-28 16:16 | PM.DS ---
DS: Admitting Diagnosis Discharge Date 11/28/23 Admitting Diagnosis hypokalemia DS: Discharge Diagnosis Discharge Diagnosis (1) Acute hypokalemia: Code(s): E87.6 - Hypokalemia Status: Acute Assessment and Plan: Hypokalemia. Patient given potassium supplements in the emergency room. Follow BMP. Resolved. (2) Diarrhea: Code(s): R19.7 - Diarrhea, unspecified Status: Acute Assessment and Plan: Patient states his diarrhea is chronic. Patient takes 20 mEq potassium at home. C diff negative. Check stool for WBC. Check stool culture. CT Without evidence of acute infection (3) Generalized weakness: Code(s): R53.1 - Weakness Status: Acute Assessment and Plan: Patient states that he has worsening leg weakness. When discussing with care radiation during last hospitalization home health was offered to the patient and he denied at that time. Will have a repeat PT and OT evaluation. Patient may need placement. (4) Insulin dependent type 2 diabetes mellitus: Code(s): E11.9 - Type 2 diabetes mellitus without complications; Z79.4 - termite helper (current) use of insulin Status: Chronic Assessment and Plan: Insulin Lispro sliding scale, Accu-checks qAc and HS and Hold oral hypoglycemics Initiate hypoglycemic precautions HgbA1c on 10/15/23 was 4.6 (5) Essential (primary) hypertension: Code(s): I10 - Essential (primary) hypertension Status: Chronic Assessment and Plan: Continue home medication of losartan. Hold Bumex. (6) Cirrhosis of liver: Code(s): K74.60 - Unspecified cirrhosis of liver Status: Acute Assessment and Plan: Cirrhosis of liver with ascites. Hold diuretic because of hypokalemia. Pt on Bumex due to severe aortic stenosis. (7) Moderate aortic valve stenosis: Code(s): I35.0 - Nonrheumatic aortic (valve) stenosis Status: Acute Assessment and Plan: History of TAVR. Currently on Eliquis and Plavix. DS: Summary Hospital Course Hospital Course: This is an 88-year-old male patient with past medical history of liver cirrhosis recent admission for acute kidney injury and low potassium type 2 diabetes mellitus.? Chronic atrial fibrillation on anticoagulation hyperlipidemia chronic hypertension who came to the emergency room because of low potassium.? Patient was sent from his PCP office to emergency room because of low potassium.? Patient has been having chronic diarrhea for the past few weeks.? He is on potassium supplements.? Patient is awake alert not in any acute distress.? Denies any fever chills dizziness lightheadedness no blurred vision chest pains no shortness breath no cough no nausea no vomiting.? Complains of chronic diarrhea.? Denies any dysuria no muscle and joint pains.? Complains of chronic fatigue.? Vital signs in the emergency room was stable.? WBC were 11.6 hemoglobin 10.9 hematocrit 23.8 platelet count 112.? Sodium 132 potassium 3.5 chloride 105 carbon dioxide 23 BUN 18 creatinine 1.10.? Glucose 113.? Calcium 7.9..? Magnesium 1.8.? Stool C diff PCR negative.? CT scan of the abdomen and pelvis showed ground-glass opacities in the lung bases with pleural effusions in underlying compressive atelectasis findings suspicious for edema.? Cirrhosis of liver with large amount of ascites and diffuse subcutaneous edema.? Ventral wall hernias containing fat and fluid.? Cholelithiasis nonobstructing right nephrolithiasis.? Patient was given magnesium and potassium supplement. Since patient left the hospital he has had progressive weakness in his lower extremities. It was recommended that he go to rehab during his last hospitalization but patient denied this. Since he has been home he has not been improving and is reconsidering rehab. Discussed with care coordination and patient was accepted to SNF. His potassium has been replaced it was encouraged that
[2023-11-28 16:58] LABS: Glucose Point of Care 147 mg/dl (65-105)
[2023-11-28] MEDS: PRAVASTATIN SODIUM 20 MG TABLET 40 MG PO (17:00)
[2023-11-28] MEDS: VITAMIN B COMPLEX CAPSULE 1 CAP PO (17:01)
[2023-11-28] MEDS: CLOPIDOGREL BISULFATE 75 MG TABLET PO (17:01)
[2023-11-28 17:46] LABS: SARS-CoV-2 RNA PCR Negative (Negative)
== END 2023-11-28 18:15 ==
LOC: ANHED 20:59 → ANH2MED 22:25
PROVIDERS: Internal Medicine Critical Care Medicine; Admitting Provider Internal Medicine Infectious Disease; Emergency Provider Emergency Medicine; PCP Emergency Medicine; Visit Provider Family Medicine
DX: E87.6 Hypokalemia (principal); R19.7 Diarrhea, unspecified; E11.42 Type 2 diabetes mellitus with diabetic polyneuropathy; I10 Essential (primary) hypertension; E86.0 Dehydration; K74.60 Unspecified cirrhosis of liver; R18.8 Other ascites; I35.0 Nonrheumatic aortic (valve) stenosis; Z95.2 Presence of prosthetic heart valve; Z11.52 Encounter for screening for COVID-19; K80.20 Calculus of gallbladder without cholecystitis without obstruction; N20.0 Calculus of kidney; J90 Pleural effusion, not elsewhere classified; K43.9 Ventral hernia without obstruction or gangrene; L40.9 Psoriasis, unspecified; I48.91 Unspecified atrial fibrillation; I25.10 Atherosclerotic heart disease of native coronary artery without angina pectoris; E78.5 Hyperlipidemia, unspecified; Z79.02 Long term (current) use of antithrombotics/antiplatelets; Z79.01 Long term (current) use of anticoagulants; Z79.84 Long term (current) use of oral hypoglycemic drugs; Z79.4 Long term (current) use of insulin; Z87.891 Personal history of nicotine dependence
CPT/HCPCS: 36415; 74177; 80048; 80053; 82948; 83735; 85025; 85027; 85055; 87045; 87427; 87449; 87493; 87635; 89055; 96365; 96366; 97110; 97161; 97165; 97530; 99285; A9270; G0378; J3480; J7120; Q9967

== ENCOUNTER 2023-12-08 14:03 | Inpatient (IN) | payer MEDICARE, SELFPAY ==
[2023-12-08] VITALS (30 sets, daily range): BP systolic 110–143; BP diastolic 51–94; PULSE 68–95; RESP 13–26; TEMP 36.4–36.7; O2SAT 96–100; BMI 30.4
--- NOTE | ~2023-12-08 | CT_ITS ---
EXAMINATION: CT brain wo con INDICATION: Altered mental status COMPARISON: 01/13/2023 TECHNIQUE: Standard unenhanced head CT. The dose-length product (DLP) was 681.00 mGy-cm. The mA was a djusted according to patient size. Iterative reconstruction technique was employed. FINDINGS: No acute intraparenchymal hemorrhage. No evidence of mass lesion. No evidence of acute infa rction. There is moderate periventricular and subcortical hypodensity probably related to small vesse l ischemic disease. There is moderate prominence of the sulci and ventricles related to cerebral atro phy. Intracranial calcified cerebral atherosclerosis is noted. No extra-axial collections. No mass ef fect or midline shift. Changes in the globes are likely from ocular lens surgery. The visualized sinu ses and mastoid air cells are well aerated. IMPRESSION: 1. No acute intracranial abnormality. 2. Age related findings. Reviewed, dictated and finalized at location F.
--- NOTE | ~2023-12-08 | XR_ITS ---
EXAMINATION: XR chest 1V portable INDICATION: Shortness of breath TECHNIQUE: Portable AP chest at 2015 hours COMPARISON: 10/21/2023 FINDINGS: The lung volumes are low. There is a diffuse interstitial pattern. The heart size is normal . No pleural effusion or pneumothorax. There are changes of endoluminal aortic valve replacement. IMPRESSION: 1. Diffuse interstitial pattern, likely pulmonary edema. Reviewed, dictated and finalized at location F.
--- NOTE | ~2023-12-08 | US_ITS ---
EXAMINATION: US paracentesis abd w/image DATE: 12/10/2023 15:25 INDICATION: Ascites. TECHNIQUE: The procedure and its risks and benefits were discussed with the patient. Potential risks discussed included bleeding and infection. The skin was prepped and draped in sterile fashion. 1% lid ocaine was used for local anesthesia. Under ultrasound guidance, a 5 Fr catheter with trochar was adv anced into the ascites in the left lower quadrant. Fluid was aspirated into vacuum bottles. The josesito ter was removed, and a dressing was applied. There were no immediate complications. FINDINGS: Ultrasound images demonstrate ascites and the catheter within the fluid. IMPRESSION: 1. Successful ultrasound-guided paracentesis yielding 5000 mL of yellow fluid. Reviewed, dictated and finalized at location A.
--- NOTE | ~2023-12-08 | CT_ITS ---
EXAMINATION: CT abdomen pelvis w con INDICATION: Abdominal pain, ascites TECHNIQUE: Computed tomographic images of the abdomen and pelvis were obtained after the administrati on of 100 cc of Omnipaque 350 intravenous contrast. The dose-length product (DLP) was 1386.94 mGy-cm. Automated exposure control and iterative reconstruction technique were employed. COMPARISON: 11/26/2023 FINDINGS: There are small pleural effusions. Cardiomegaly is noted. Changes of endoluminal aortic [place] replacement are noted. There are minimal airspace opacities of the visualized lung bases. Bronchie ctasis is noted in the lower lobes. There is moderate bilateral gynecomastia, left greater than right . There is a large volume of ascites. There is nodularity of the liver surface, consistent with cirrh osis. Punctate calcifications in an otherwise normal spleen likely represent healed granulomatous dis ease. Stones are present in the nondistended gallbladder. Nonobstructing stones of the kidneys measur e up to 3 mm on the right. There is a 1.6 cm cyst of the left kidney lower pole. No pathologically en larged abdominal or pelvic lymph nodes are identified. There is calcified atherosclerosis of the aort a and many of the other arteries. No free intraperitoneal gas or evidence of bowel obstruction. There are multiple ventral hernias containing fat and ascites. There is severe lumbar spondylosis. IMPRESSION: 1. Cirrhosis with large volume of ascites. 2. Cholelithiasis without evidence of cholecystitis. 3. Small pleural effusions. 4. Nonobstructing bilateral nephrolithiasis. 5. Minimal airspace opacities of the visualized lung bases, consistent with atelectasis versus pneumo chiquis. Reviewed, dictated and finalized at location F. IMPRESSION: 1. Cirrhosis with large volume of ascites. 2. Cholelithiasis without evidence of cholecystitis. 3. Small pleural effusions. 4. Nonobstructing bilateral nephrolithiasis. 5. Minimal airspace opacities of the visualized lung bases, consistent with ate lectasis versus pneumonia.
--- NOTE | 2023-12-08 14:21 | ECG_ITS ---
Measurements Intervals Goff Rate: 73 P: MA: 0 QRS: -32 QRSD: 139 T: 3 QT: 441 QTc: 487 Interpretive Statements ATRIAL FIBRILLATION LEFT AXIS DEVIATION RIGHT BUNDLE BRANCH BLOCK BASELINE ARTIFACT- I, II, III, AVR, AVL, AVF, V1-V3 ABNORMAL ECG COMPARED TO ECG 10/21/2023 18:35:50 NO SIGNIFICANT CHANGES Electronically Signed On 12-08-2023 14:37:50 CDT by Partha Bowie D.O.
--- NOTE | 2023-12-08 16:11 | ED.AMS ---
HPI - Altered Mental Status General Chief Complaint: Altered Mental Status Stated Complaint: AMS Time Seen by Provider: 12/08/23 15:11 History of Present Illness HPI narrative: 78-year-old male presents to the emergency department for evaluation of altered mental status. Patient does reside at a local rehab center for increased generalized weakness. Patient does have a history of cirrhosis with no prior history of alcohol abuse. Patient has had his ascites drained. Today around noon the patient call his family members stating he was stuck outside when actually he was still at his rehab facility. Patient is more alert and appropriate at that time. Related Data Home Medications Medication Instructions Recorded Confirmed apremilast 30 mg tablet (Otezla) 30 mg PO BID 01/13/23 11/26/23 bumetanide 1 mg tablet 1 mg PO DAILY 06/16/23 11/26/23 clopidogrel 75 mg tablet 75 mg PO QPM 06/16/23 11/26/23 apixaban 5 mg tablet (Eliquis) 5 mg PO BID 08/19/23 11/26/23 vitamin B complex 1 tablet PO QPM 08/19/23 11/26/23 insulin glargine 100 unit/mL (3 25 unit subcut QAM 10/22/23 11/26/23 mL) subcutaneous pen (Basaglar KwikPen U-100 Insulin) losartan 100 mg tablet 100 mg PO DAILY 10/22/23 11/26/23 pravastatin 40 mg tablet 40 mg PO QPM 10/22/23 11/26/23 Allergies Allergy/AdvReac Type Severity Reaction Status Date / Time venom-honey bee Allergy Intermediate Swelling Verified 11/26/23 14:33 pantoprazole AdvReac Intermediate Nausea and Verified 11/26/23 14:33 Vomiting Review of Systems Review of Systems: All systems reviewed & are unremarkable except as noted in HPI and below PMFSH Past Medical History Medical History (Updated 12/08/23 @ 20:07 by Ramone Marin MD) MANDI (acute kidney injury) Cellulitis of left ankle Chronic anticoagulation Patient takes rivaroxaban for stroke prophylaxis given persistent atrial fibrillation. Counseling on health promotion and disease prevention Diabetic peripheral neuropathy Encounter for medication management Essential hypertension Generalized osteoarthritis Hematemesis Hernia (~1989) History of kidney stones Hyperlipidemia Inflammatory arthritis Insulin dependent type 2 diabetes mellitus Hemoglobin A1c was 7.7% on 12/28/2020. Kidney stone (~1976) Moderate aortic valve stenosis Nonrheumatic moderate aortic stenosis noted on echocardiogram on 11/28/2020 with a valve area of 1.08 cm2. Moderate pulmonary hypertension Estimated peak RVSP 48 mmHg on echo on 11/28/2020. Persistent atrial fibrillation Psoriasis Surgical History Surgical History History of bilateral cataract extraction History of eye surgery Retinal surgery due to wrinkling. History of heart valve replacement (~06/15/23) History of loop recorder times 2 since removed History of surgery on arm Left upper extremity tendon repair. History of ventral hernia repair Family History Family History Father , 70 -- Diabetes cause of Diabetes mellitus Hypertension Mother , 35 -- [place] Brain bleed Hypertension Social History Social History Social History: Surrogate decision maker: Olivia Jewell, spouse. He has 3 children. Code status: Full code. Smoking packs per day: 2 Smoking cigarettes per day: 40.0 Years smoked: 5 Smoking pack-years: 10.00 Smoking status: Former smoker Additional smoking assessment comments: smoke as a teenager Alcohol intake: former Substance use: never Substance use type: does not use Do You Feel Safe in your Home?: Yes Lack of Transportation: No Lack of Food: Never True Current Housing: I Have Housing Concerned About Future Housing: No Difficulty Paying Gas/Electric Bills: No Difficulty Paying for Meds: No Currently Unemployed: No Education: High School Di
[2023-12-08 16:59] LABS: Basophils Percent Auto 0.5 % (0.2-1.2); Eosinophils Absolute Auto 0.3 K/mm3 (0-0.3); Eosinophils Percent Auto 3.5 % (0-4.4); Hemoglobin 8.3 g/dL (14.0-18.0); Immature Granulocyte Absolute 0.04 K/mm3 (0.00-0.031); Immature Granulocyte Percent A 0.5 % (0-0.5); Lymphocytes Absolute Auto 1.57 K/mm3 (0.9-3.2); Lymphocytes Percent Auto 18.8 % (18.3-44.2); Mean Corpuscular HGB Conc 31.9 g/dl (32-36); Mean Corpuscular Hemoglobin 31.2 pg (26-34); Mean Corpuscular Volume 97.7 fl (80-100); Mean Platelet Volume 11.6 fl (7.4-10.4); Monocytes Absolute Auto 0.7 K/mm3 (0.1-0.6); Monocytes Percent Auto 7.9 % (2.6-8.5); Neutrophils Absolute Auto 5.8 K/mm3 (1.3-6.7); Neutrophils Percent Auto 68.8 % (45.5-73.1); Platelet Count Result 217 k/mm3 (150-375); Red Blood Count 2.66 M/mm3 (4.6-6.20); Red Cell Distribution Width 19.6 % (11.5-14.5); White Blood Count 8.4 K/mm3 (4.5-10.0)
[2023-12-08 17:00] LABS: Ammonia < 9 umol/L (9-30)
[2023-12-08 17:03] LABS: Alanine Aminotransferase 35 U/L (6-50); Albumin Level 2.3 g/dL (3.5-5.1); Alkaline Phosphatase 341 U/L (38-126); Anion Gap 1 mmol/L (8-16); Aspartate Amino Transferase 54 U/L (17-59); Bilirubin,Total 1.2 mg/dL (0.2-1.3); Blood Urea Nitrogen 17 mg/dL (9-20); Calcium 9.3 mg/dL (8.4-10.2); Carbon Dioxide 24 mmol/L (22-30); Chloride 107 mmol/L (98-107); Estimated CRCL calculation 70 ml/min; Estimated Glomerular Filt Rate > 60; Glucose 76 mg/dL (65-110); Lipase 34 U/L (23-300); Potassium 4.6 mmol/L (3.4-5.0); Sodium 132 mmol/L (137-145)
[2023-12-08 17:04] LABS: Lactic Acid Reflex 1.4 mmol/L (0.7-2.0)
[2023-12-08 17:06] LABS: Partial Thromboplastin Time 44.8 Seconds (22.3-36.8)
[2023-12-08 19:20] LABS: Bacteria Urine None Seen /hpf; Calcium Oxalate Crystals Urine Present /hpf; Non Pathogenic Casts 0-2; Squamous Epithelial Cell Urine None Seen /hpf (Few); WBC Urine 0-5 /hpf (0-3)
[2023-12-08 19:21] LABS: Appearance Urine Clear (Clear); Color Urine Yellow (Yellow)
[2023-12-08 19:22] LABS: Protein Urine Negative (Negative)
[2023-12-08 19:23] LABS: Blood Urine Negative (Negative); Glucose Urine UA 3+ mg/dL (Negative); Ketones Urine Negative (Negative)
--- NOTE | 2023-12-08 19:23 | PC.NURSE ---
Assumed care of pt. Bedside report from YANCI Mercado. Pt laying per stretcher with family at bedside. States I just want to sleep.
[2023-12-08 19:24] LABS: Bilirubin Urine Negative (Negative); Nitrate Urine Negative (Negative); Urobilinogen Urine 0.2 mg/dL (<2.0)
[2023-12-08 19:25] LABS: Add Urine Microscopic? YES; Leukocyte Esterase Ur Negative LEU/UL (Negative)
[2023-12-08 19:30] LABS: Influenza A QL RT-PCR Negative (Negative); Influenza B QL RT-PCR Negative (Negative); RSV RNA, RT-PCR Negative (Negative); SARS-CoV-2 RNA PCR Negative (Negative)
--- NOTE | 2023-12-08 19:59 | PM.IMHP ---
H&P: HPI History of Present Illness Date/Time: 12/08/23 19:59 Chief Complaint: altered mental status Narrative: this is a 78-year-old male with past medical history significant for persistent atrial fibrillation, hepatic cirrhosis, chronic diarrhea, hypokalemia, insulin-dependent diabetes mellitus, diabetic peripheral neuropathy, moderate aortic stenosis, Psoriatic disease, Recently discharged from [facility] had been treated for hypokalemia noted to be deconditioned and debilitated sent to custodial/rehabilitation Patient is currently at a rehabilitation center was brought for evaluation due to altered mental status patient had called his family to inform that he was a stalk outside when in reality he was in the facility. At the time of my visit I am unable to obtain any history from the patient who is still confused he believes is still at the rehabilitation center. Preliminary workup here was significant for pulmonary opacities. patient has been admitted for further evaluation management and treatment. EXAMINATION: CT brain wo con ? INDICATION: Altered mental status ? COMPARISON: 01/13/2023 TECHNIQUE: Standard unenhanced head CT. The dose-length product (DLP) was 681.00 mGy-cm. The mA was adjusted according to patient size. Iterative reconstruction technique was employed. ? FINDINGS: No acute intraparenchymal hemorrhage. No evidence of mass lesion. No evidence of acute infarction. There is moderate periventricular and subcortical hypodensity probably related to small vessel ischemic disease. There is moderate prominence of the sulci and ventricles related to cerebral atrophy. Intracranial calcified cerebral atherosclerosis is noted. No extra-axial collections. No mass effect or midline shift. Changes in the globes are likely from ocular lens surgery. The visualized sinuses and mastoid air cells are well aerated. IMPRESSION: 1. No acute intracranial abnormality. 2. Age related findings. EXAMINATION: CT abdomen pelvis w con INDICATION: Abdominal pain, ascites TECHNIQUE: Computed tomographic images of the abdomen and pelvis were obtained after the administration of 100 cc of Omnipaque 350 intravenous contrast. The dose-length product (DLP) was 1386.94 mGy-cm. Automated exposure control and iterative reconstruction technique were employed. COMPARISON: 11/26/2023 FINDINGS: There are small pleural effusions. Cardiomegaly is noted. Changes of endoluminal aortic valve replacement are noted. There are minimal airspace opacities of the visualized lung bases. Bronchiectasis is noted in the lower lobes. There is moderate bilateral gynecomastia, left greater than right. There is a large volume of ascites. There is nodularity of the liver surface, consistent with cirrhosis. Punctate calcifications in an otherwise normal spleen likely represent healed granulomatous disease. Stones are present in the nondistended gallbladder. Nonobstructing stones of the kidneys measure up to 3 mm on the right. There is a 1.6 cm cyst of the left kidney lower pole. No pathologically enlarged abdominal or pelvic lymph nodes are identified. There is calcified atherosclerosis of the aorta and many of the other arteries. No free intraperitoneal gas or evidence of bowel obstruction. There are multiple ventral hernias containing fat and ascites. There is severe lumbar spondylosis. IMPRESSION: 1. Cirrhosis with large volume of ascites. 2. Cholelithiasis without evidence of cholecystitis. 3. Small pleural effusions. 4. Nonobstructing bilateral nephrolithiasis. 5. Minimal airspace opacities of the visualized lung bases, consistent with atelectasis versus pneumonia. Review of Systems Review of Systems: ROS unobtainable: Yes unobtainable due to mental status ( Confusion) [facility] Past Medical History Medical History (Updated 12/08/23 @ 20:07 by Ramone Marin MD) MANDI (acute kidney injury) Cellulitis of left ankle Chronic anticoagulation Patient takes rivar
[2023-12-08] MEDS: CEFEPIME 1 GM/NS 50 ML 1 GM/50 ML BAG IVPB (20:59)
[2023-12-08] MEDS: AZITHROMYCIN 500 MG/NS 250 ML 500 MG/250 ML BAG 250 MG IVPB (21:44)
[2023-12-08 22:04] LABS: MRSA (PCR) NOT DETECTED (NOT DETECTE)
--- NOTE | 2023-12-08 22:15 | ADMGEN ---
This patient, Damir Jewell, was admitted to [facility] Surg Room 307-01. Patient/family oriented to hospital policies and general routines including ID bracelet, bed and alarms, visiting hours, pain management, procedures, bathroom and other care routines, personal items, smoking policy, room service/diet, and visiting hours. Information on how to activate the Rapid Response Team has been discussed. Patient/Family are encouraged to report perceived risks to care and to ask questions if they do not understand what they are told or what they should do.
[2023-12-08] MEDS: VANCOMYCIN 1,250 MG/NS 250 ML 1,250 MG/250 ML BAG 166.67 MG IVPB (22:48)
[2023-12-09] MEDS: VANCOMYCIN 1,250 MG/NS 250 ML 1,250 MG/250 ML BAG 166.67 MG IVPB (00:19)
[2023-12-09 04:41] VITALS: BP 118/59; PULSE 62; RESP 16; TEMP 36.4; O2SAT 98
[2023-12-09] MEDS: SUCRALFATE 1 GM TABLET PO ×4 (06:24→20:42)
[2023-12-09 07:24] LABS: Estimated CRCL calculation 77 ml/min; Estimated Glomerular Filt Rate > 60
[2023-12-09] MEDS: FAMOTIDINE 20 MG TABLET 40 MG PO ×2 (09:53→20:42)
[2023-12-09] MEDS: EMPAGLIFLOZIN 10 MG TABLET PO (09:53)
[2023-12-09] MEDS: PANTOPRAZOLE 40 MG TABLET PO ×2 (09:53→20:42)
[2023-12-09] MEDS: BUMETANIDE 1 MG TABLET PO (09:53)
[2023-12-09] MEDS: LOSARTAN POTASSIUM 100 MG TABLET PO (09:56)
[2023-12-09 10:40] VITALS: O2SAT 97
[2023-12-09 11:46] LABS: Glucose Point of Care 106 mg/dl (65-105)
--- NOTE | 2023-12-09 14:04 | P.PNIM_ITS ---
Progress Note: A&P Assessment and Plan (1) AMS (altered mental status): Code(s): R41.82 - Altered mental status, unspecified Status: Acute Assessment and Plan: 12/09/2023: * altered mental status possibly due to low sodium level verses chronic liver disease verses pneumonia * Currently alert oriented x3 * sodium level 130 * blood sugar ranging 98-171 * ammonia level is normal (2) Pneumonia: Code(s): J18.9 - Pneumonia, unspecified organism Status: Acute Assessment and Plan: 12/09/2023: * likely community-acquired pneumonia verses large volume ascites * chest x-ray showing diffuse interstitial pulmonary edema * abdomen pelvis CT with contrast showed minimal airspace opacities of the lung bases consistent with atelectasis versus pneumonia, small pleural effusions were also noted * currently on room air * blood culture obtained and is pending * White blood cell count 12.9 on labs today, lactic acid was 1.4 * patient was given a dose of azithromycin, vancomycin, and cefepime while in the ED * continue with azithromycin and Rocephin for now (3) Cirrhosis of liver: Code(s): K74.60 - Unspecified cirrhosis of liver Status: Acute Assessment and Plan: 12/09/2023: * history of liver cirrhosis without history of alcohol abuse * CT of the abdomen pelvis with contrast showing large volume ascites * NPO after midnight * plan for ultrasound-guided paracentesis ordered for tomorrow with appropriate labs * liver enzymes are normal, total bili is normal, ammonia level is normal (4) Insulin dependent type 2 diabetes mellitus: Code(s): E11.9 - Type 2 diabetes mellitus without complications; Z79.4 - penitentiary (current) use of insulin Status: Chronic Assessment and Plan: 12/09/2023: * blood sugars ranging 106-147 * hemoglobin A1c last hemoglobin A1c on 10/15/2023 was 4.6 * Accu-Cheks AC and HS * Lantus and Jardiance ordered * hypoglycemic protocol in place * low-dose sliding scale insulin ordered * diabetic diet ordered (5) Physical deconditioning: Code(s): R53.81 - Other malaise Status: Acute Assessment and Plan: 12/09/2023: * likely secondary to chronic debilitating illness * PT and OT ordered (6) Chronic anticoagulation: Code(s): Z79.01 - joint terminal attack controller (current) use of anticoagulants Status: Chronic Assessment and Plan: 12/09/2023: * Eliquis currently on hold for procedure * SCDs are ordered (7) Persistent atrial fibrillation: Code(s): I48.19 - Other persistent atrial fibrillation Status: Chronic Assessment and Plan: 12/09/2023: * anticoagulation on hold (8) Hyperlipidemia: Code(s): E78.5 - Hyperlipidemia, unspecified Status: Chronic Assessment and Plan: 12/09/2023: * continue pravastatin (9) Essential hypertension: Code(s): I10 - Essential (primary) hypertension Status: Chronic Assessment and Plan: 12/09/2023: * blood pressure ranging 113/76 to 118/59 * continue losartan Time Spent With Patient Time with patient: Greater than 35 minutes Subjective Date/time seen: 12/09/23 14:04 Interval history: this is a 78-year-old male who presented to the hospital on 12/08/2023 From his local rehab center where he lives for evaluation of altered mental status. workup in the hospital included head CT which was negative for any acute intracranial abnormality, only showed age-related changes. He also had a CT of
--- NOTE | 2023-12-09 14:04 | PM.IMPN ---
Progress Note: A&P Assessment and Plan (1) AMS (altered mental status): Code(s): R41.82 - Altered mental status, unspecified Status: Acute Assessment and Plan: 12/09/2023: altered mental status possibly due to low sodium level verses chronic liver disease verses pneumonia Currently alert oriented x3 sodium level 130 blood sugar ranging 98-171 ammonia level is normal (2) Pneumonia: Code(s): J18.9 - Pneumonia, unspecified organism Status: Acute Assessment and Plan: 12/09/2023: likely community-acquired pneumonia verses large volume ascites chest x-ray showing diffuse interstitial pulmonary edema abdomen pelvis CT with contrast showed minimal airspace opacities of the lung bases consistent with atelectasis versus pneumonia, small pleural effusions were also noted currently on room air blood culture obtained and is pending White blood cell count 12.9 on labs today, lactic acid was 1.4 patient was given a dose of azithromycin, vancomycin, and cefepime while in the ED continue with azithromycin and Rocephin for now (3) Cirrhosis of liver: Code(s): K74.60 - Unspecified cirrhosis of liver Status: Acute Assessment and Plan: 12/09/2023: history of liver cirrhosis without history of alcohol abuse CT of the abdomen pelvis with contrast showing large volume ascites NPO after midnight plan for ultrasound-guided paracentesis ordered for tomorrow with appropriate labs liver enzymes are normal, total bili is normal, ammonia level is normal (4) Insulin dependent type 2 diabetes mellitus: Code(s): E11.9 - Type 2 diabetes mellitus without complications; Z79.4 - senior care (current) use of insulin Status: Chronic Assessment and Plan: 12/09/2023: blood sugars ranging 106-147 hemoglobin A1c last hemoglobin A1c on 10/15/2023 was 4.6 Accu-Cheks AC and HS Lantus and Jardiance ordered hypoglycemic protocol in place low-dose sliding scale insulin ordered diabetic diet ordered (5) Physical deconditioning: Code(s): R53.81 - Other malaise Status: Acute Assessment and Plan: 12/09/2023: likely secondary to chronic debilitating illness PT and OT ordered (6) Chronic anticoagulation: Code(s): Z79.01 - local company intermodal truck driver (current) use of anticoagulants Status: Chronic Assessment and Plan: 12/09/2023: Eliquis currently on hold for procedure SCDs are ordered (7) Persistent atrial fibrillation: Code(s): I48.19 - Other persistent atrial fibrillation Status: Chronic Assessment and Plan: 12/09/2023: anticoagulation on hold (8) Hyperlipidemia: Code(s): E78.5 - Hyperlipidemia, unspecified Status: Chronic Assessment and Plan: 12/09/2023: continue pravastatin (9) Essential hypertension: Code(s): I10 - Essential (primary) hypertension Status: Chronic Assessment and Plan: 12/09/2023: blood pressure ranging 113/76 to 118/59 continue losartan Time Spent With Patient Time with patient: Greater than 35 minutes Subjective Date/time seen: 12/09/23 14:04 Interval history: this is a 78-year-old male who presented to the hospital on 12/08/2023 From his local rehab center where he lives for evaluation of altered mental status. workup in the hospital included head CT which was negative for any acute intracranial abnormality, only showed age-related changes. He also had a CT of the abdomen pelvis with contrast which a large volume ascites, cirrhosis, cholelithiasis without evidence of cholecystitis, small pleural effusions, airspace opacities. Chest x-ray shown diffuse interstitial pulmonary edema. Initial labs show a normal white blood cell count of 8.4, hemoglobin 8.3, hematocrit 26.0, INR 2.0, sodium 132, liver enzymes were normal, total bili was normal at 1.2, alk-phos 341, ammonia level less than 9, lactic acid was 1.4, blood s
[2023-12-09 14:17] VITALS: BP 113/76; PULSE 73; RESP 18; TEMP 36.6; O2SAT 100
[2023-12-09] MEDS: cefTRIAXone 2 GM/NS 100 ML 2 GM/100 ML BAG IVPB (14:56)
[2023-12-09 15:04] LABS: Basophils Absolute Auto 0.1 K/mm3 (0.0-0.1); Basophils Percent Auto 0.5 % (0.2-1.2); Eosinophils Absolute Auto 0.3 K/mm3 (0-0.3); Eosinophils Percent Auto 2.3 % (0-4.4); Hematocrit 26.7 % (42.0-52.0); Hemoglobin 8.2 g/dL (14.0-18.0); Immature Granulocyte Absolute 0.09 K/mm3 (0.00-0.031); Immature Granulocyte Percent A 0.7 % (0-0.5); Lymphocytes Absolute Auto 1.64 K/mm3 (0.9-3.2); Lymphocytes Percent Auto 12.8 % (18.3-44.2); Mean Corpuscular HGB Conc 30.7 g/dl (32-36); Mean Corpuscular Hemoglobin 30.8 pg (26-34); Mean Corpuscular Volume 100.4 fl (80-100); Mean Platelet Volume 11.6 fl (7.4-10.4); Monocytes Absolute Auto 0.8 K/mm3 (0.1-0.6); Monocytes Percent Auto 6.3 % (2.6-8.5); Neutrophils Percent Auto 77.4 % (45.5-73.1); Platelet Count Result 229 k/mm3 (150-375); Red Blood Count 2.66 M/mm3 (4.6-6.20); Red Cell Distribution Width 19.8 % (11.5-14.5); White Blood Count 12.9 K/mm3 (4.5-10.0)
[2023-12-09 15:19] LABS: Alanine Aminotransferase 30 U/L (6-50); Albumin Level 2.4 g/dL (3.5-5.1); Alkaline Phosphatase 294 U/L (38-126); Anion Gap 4 mmol/L (4-12); Aspartate Amino Transferase 50 U/L (17-59); Bilirubin,Total 1.1 mg/dL (0.2-1.3); Blood Urea Nitrogen 17 mg/dL (9-20); Carbon Dioxide 19 mmol/L (22-30); Chloride 108 mmol/L (98-107); Estimated CRCL calculation 69 ml/min; Estimated Glomerular Filt Rate > 60; Glucose 101 mg/dL (65-110); Potassium 4.3 mmol/L (3.4-5.0); Sodium 131 mmol/L (137-145)
[2023-12-09 16:34] LABS: Glucose Point of Care 122 mg/dl (65-105)
[2023-12-09 16:40] LABS: Albumin Level 2.4 g/dL (3.5-5.1)
[2023-12-09] MEDS: CLOPIDOGREL BISULFATE 75 MG TABLET PO (18:12)
[2023-12-09] MEDS: PRAVASTATIN SODIUM 20 MG TABLET 40 MG PO (18:12)
[2023-12-09 20:28] LABS: Glucose Point of Care 133 mg/dl (65-105)
[2023-12-09] MEDS: AZITHROMYCIN 250 MG TABLET 500 MG PO (20:42)
[2023-12-09 22:00] VITALS: BP 115/70; PULSE 76; RESP 16; TEMP 36; O2SAT 100
[2023-12-10 06:00] VITALS: BP 117/53; PULSE 62; RESP 14; TEMP 36.1; O2SAT 100
[2023-12-10 07:35] LABS: Basophils Absolute Auto 0.1 K/mm3 (0.0-0.1); Basophils Percent Auto 0.6 % (0.2-1.2); Eosinophils Absolute Auto 0.4 K/mm3 (0-0.3); Eosinophils Percent Auto 4.1 % (0-4.4); Hemoglobin 7.5 g/dL (14.0-18.0); Immature Granulocyte Absolute 0.03 K/mm3 (0.00-0.031); Immature Granulocyte Percent A 0.3 % (0-0.5); Lymphocytes Absolute Auto 1.53 K/mm3 (0.9-3.2); Lymphocytes Percent Auto 17.5 % (18.3-44.2); Mean Corpuscular HGB Conc 31.3 g/dl (32-36); Mean Corpuscular Hemoglobin 30.9 pg (26-34); Mean Corpuscular Volume 98.8 fl (80-100); Mean Platelet Volume 11.3 fl (7.4-10.4); Monocytes Absolute Auto 0.8 K/mm3 (0.1-0.6); Monocytes Percent Auto 8.8 % (2.6-8.5); Neutrophils Percent Auto 68.7 % (45.5-73.1); Platelet Count Result 209 k/mm3 (150-375); Red Blood Count 2.43 M/mm3 (4.6-6.20); Red Cell Distribution Width 19.9 % (11.5-14.5); White Blood Count 8.7 K/mm3 (4.5-10.0)
--- NOTE | 2023-12-10 07:36 | P.PNIM_ITS ---
Progress Note: A&P Assessment and Plan (1) AMS (altered mental status): Code(s): R41.82 - Altered mental status, unspecified Status: Acute Assessment and Plan: 12/09/2023: * altered mental status possibly due to low sodium level verses chronic liver disease * Currently alert oriented x3 * sodium level 130 * blood sugar ranging 98-171 * ammonia level is normal 12/10/23: * Altered mental status has resolved * Altered mental status likely due to hepatic encephalopathy due to chronic liver disease (2) Pneumonia: Code(s): J18.9 - Pneumonia, unspecified organism Status: Acute Assessment and Plan: 12/09/2023: * likely community-acquired pneumonia verses large volume ascites * chest x-ray showing diffuse interstitial pulmonary edema * abdomen pelvis CT with contrast showed minimal airspace opacities of the lung bases consistent with atelectasis versus pneumonia, small pleural effusions were also noted * currently on room air * blood culture obtained and is pending * White blood cell count 12.9 on labs today, lactic acid was 1.4 * patient was given a dose of azithromycin, vancomycin, and cefepime while in the ED * continue with azithromycin and Rocephin for now 12/10/23: * Continue with current treatment plan (3) Cirrhosis of liver: Code(s): K74.60 - Unspecified cirrhosis of liver Status: Acute Assessment and Plan: 12/09/2023: * history of liver cirrhosis without history of alcohol abuse * CT of the abdomen pelvis with contrast showing large volume ascites * NPO after midnight * plan for ultrasound-guided paracentesis ordered for tomorrow with appropriate labs * liver enzymes are normal, total bili is normal, ammonia level is normal 12/10/23: * Plan for ultrasound guided paracentesis today (4) Insulin dependent type 2 diabetes mellitus: Code(s): E11.9 - Type 2 diabetes mellitus without complications; Z79.4 - terminal superintendent (current) use of insulin Status: Chronic Assessment and Plan: 12/09/2023: * blood sugars ranging 106-147 * hemoglobin A1c last hemoglobin A1c on 10/15/2023 was 4.6 * Accu-Cheks AC and HS * Lantus and Jardiance ordered * hypoglycemic protocol in place * low-dose sliding scale insulin ordered * diabetic diet ordered 12/10/23: * Continue with current treatment plan (5) Physical deconditioning: Code(s): R53.81 - Other malaise Status: Acute Assessment and Plan: 12/09/2023: * likely secondary to chronic debilitating illness * PT and OT ordered 12/10/23: * Continue with current treatment plan (6) Chronic anticoagulation: Code(s): Z79.01 - terminal superintendent (current) use of anticoagulants Status: Chronic Assessment and Plan: 12/09/2023: * Eliquis currently on hold for procedure * SCDs are ordered 12/10/23: * Continue with current treatment plan (7) Persistent atrial fibrillation: Code(s): I48.19 - Other persistent atrial fibrillation Status: Chronic Assessment and Plan: 12/09/2023: * anticoagulation on hold 12/10/23: * Continue with current treatment plan (8) Hyperlipidemia: Code(s): E78.5 - Hyperlipidemia, unspecified Status: Chronic Assessment and Plan: 12/09/2023: * continue pravastatin 12/10/23: * Continue with current treatment plan (9) Essential hypertension: Code(s): I10 - Essential (primary) hypertension Status: Chronic Assessment a
--- NOTE | 2023-12-10 07:36 | PM.IMPN ---
Progress Note: A&P Assessment and Plan (1) AMS (altered mental status): Code(s): R41.82 - Altered mental status, unspecified Status: Acute Assessment and Plan: 12/09/2023: altered mental status possibly due to low sodium level verses chronic liver disease Currently alert oriented x3 sodium level 130 blood sugar ranging 98-171 ammonia level is normal 12/10/23: Altered mental status has resolved Altered mental status likely due to hepatic encephalopathy due to chronic liver disease (2) Pneumonia: Code(s): J18.9 - Pneumonia, unspecified organism Status: Acute Assessment and Plan: 12/09/2023: likely community-acquired pneumonia verses large volume ascites chest x-ray showing diffuse interstitial pulmonary edema abdomen pelvis CT with contrast showed minimal airspace opacities of the lung bases consistent with atelectasis versus pneumonia, small pleural effusions were also noted currently on room air blood culture obtained and is pending White blood cell count 12.9 on labs today, lactic acid was 1.4 patient was given a dose of azithromycin, vancomycin, and cefepime while in the ED continue with azithromycin and Rocephin for now 12/10/23: Continue with current treatment plan (3) Cirrhosis of liver: Code(s): K74.60 - Unspecified cirrhosis of liver Status: Acute Assessment and Plan: 12/09/2023: history of liver cirrhosis without history of alcohol abuse CT of the abdomen pelvis with contrast showing large volume ascites NPO after midnight plan for ultrasound-guided paracentesis ordered for tomorrow with appropriate labs liver enzymes are normal, total bili is normal, ammonia level is normal 12/10/23: Plan for ultrasound guided paracentesis today (4) Insulin dependent type 2 diabetes mellitus: Code(s): E11.9 - Type 2 diabetes mellitus without complications; Z79.4 - termite technician (current) use of insulin Status: Chronic Assessment and Plan: 12/09/2023: blood sugars ranging 106-147 hemoglobin A1c last hemoglobin A1c on 10/15/2023 was 4.6 Accu-Cheks AC and HS Lantus and Jardiance ordered hypoglycemic protocol in place low-dose sliding scale insulin ordered diabetic diet ordered 12/10/23: Continue with current treatment plan (5) Physical deconditioning: Code(s): R53.81 - Other malaise Status: Acute Assessment and Plan: 12/09/2023: likely secondary to chronic debilitating illness PT and OT ordered 12/10/23: Continue with current treatment plan (6) Chronic anticoagulation: Code(s): Z79.01 - shelter (current) use of anticoagulants Status: Chronic Assessment and Plan: 12/09/2023: Eliquis currently on hold for procedure SCDs are ordered 12/10/23: Continue with current treatment plan (7) Persistent atrial fibrillation: Code(s): I48.19 - Other persistent atrial fibrillation Status: Chronic Assessment and Plan: 12/09/2023: anticoagulation on hold 12/10/23: Continue with current treatment plan (8) Hyperlipidemia: Code(s): E78.5 - Hyperlipidemia, unspecified Status: Chronic Assessment and Plan: 12/09/2023: continue pravastatin 12/10/23: Continue with current treatment plan (9) Essential hypertension: Code(s): I10 - Essential (primary) hypertension Status: Chronic Assessment and Plan: 12/09/2023: blood pressure ranging 113/76 to 118/59 continue losartan 12/10/23: Continue with current treatment plan Time Spent With Patient Time with patient: Greater than 35 minutes Subjective Date/time seen: 12/10/23 07:36 Interval history: 12/09/23: This is a 78-year-old male who presented to the hospital on 12/08/2023 From his local rehab center where he lives for evaluation of altered mental status. workup in the hospital included head CT which was negative for any acute int
[2023-12-10 07:42] LABS: INR 1.6; Prothrombin Time 19.4 Seconds (11.1-14.7)
[2023-12-10 07:50] LABS: Glucose Point of Care 89 mg/dl (65-105)
[2023-12-10 07:55] LABS: Alanine Aminotransferase 27 U/L (6-50); Albumin Level 2.1 g/dL (3.5-5.1); Alkaline Phosphatase 257 U/L (38-126); Anion Gap 2 mmol/L (4-12); Aspartate Amino Transferase 36 U/L (17-59); Bilirubin,Total 0.8 mg/dL (0.2-1.3); Blood Urea Nitrogen 17 mg/dL (9-20); Calcium 8.8 mg/dL (8.4-10.2); Carbon Dioxide 22 mmol/L (22-30); Chloride 107 mmol/L (98-107); Estimated CRCL calculation 70 ml/min; Estimated Glomerular Filt Rate > 60; Glucose 86 mg/dL (65-110); Potassium 3.9 mmol/L (3.4-5.0); Sodium 131 mmol/L (137-145)
[2023-12-10 08:00] VITALS: PULSE 68; O2SAT 93
[2023-12-10] MEDS: PANTOPRAZOLE 40 MG TABLET PO ×2 (08:47→20:32)
[2023-12-10] MEDS: LOSARTAN POTASSIUM 100 MG TABLET PO (08:47)
[2023-12-10] MEDS: FAMOTIDINE 20 MG TABLET 40 MG PO ×2 (08:47→20:32)
[2023-12-10] MEDS: BUMETANIDE 1 MG TABLET PO (08:47)
--- NOTE | 2023-12-10 10:51 | P.CDI_ITS ---
CDI Query Clarification Request Documentation in the medical record indicates that this patient has been d iagnosed as having the symptoms of ALTERED MENTAL STATUS. Additional findings also documented in the medical record: Infection : Pneumonia Abnormal lab findings : NA 132 Patient receiving: Zithromax 500 mg daily Rocephin 2 gm Q 24 hours (1) AMS (altered mental status): ?Code(s): R41.82 - Altered mental status, unspecified ?Status:?Acute ?Assessment and Plan: 12/09/2023: * ?altered mental status possibly due to low sodium level verses chronic liver disease verses pneumonia * Currently alert oriented x3 * ?sodium level 130 * ?blood sugar ranging 98-171 * ?ammonia level is normal (2) Pneumonia: ?Code(s): J18.9 - Pneumonia, unspecified organism ?Status:?Acute ?Assessment and Plan: 12/09/2023: * ?likely community-acquired pneumonia verses large volume ascites * ?chest x-ray showing diffuse interstitial pulmonary edema * ?abdomen pelvis CT with contrast showed minimal airspace opacities of the lung bases consistent with atelectasis versus pneumonia, small pleural effusions were also noted * ?currently on room air * ?blood culture obtained and is pending * White blood cell count 12.9 on labs today, lactic acid was 1.4 * ?patient was given a dose of azithromycin, vancomycin, and cefepime while in the ED * ?continue? with azithromycin and Rocephin for now Based on your medical judgement, can you further clarify in the progress notes if these findings associated with altered mental status are due to a definite or suspected underlying neurologic cause such as: * Metabolic Encephalopathy * Toxic Encephalopathy * Altered mental status without encephalopathy * Other condition (please specify) * None of the above/ Not applicable <Deepa Chen RN - Last Filed: 12/10/23 11:04> Clarified Diagnosis Clarified Diagnosis: AMS likely due to chronic liver failure and hepatic encephalopathy <Concepción Giles APRN - Last Filed: 12/10/23 12:59>
--- NOTE | 2023-12-10 10:51 | WPDCDIQUERY2 ---
CDI Query Clarification Request Documentation in the medical record indicates that this patient has been diagnosed as having the symptoms of ALTERED MENTAL STATUS. Additional findings also documented in the medical record: Infection : Pneumonia Abnormal lab findings : NA 132 Patient receiving: Zithromax 500 mg daily Rocephin 2 gm Q 24 hours (1) AMS (altered mental status): ?Code(s): R41.82 - Altered mental status, unspecified ?Status:?Acute ?Assessment and Plan: 12/09/2023: ?altered mental status possibly due to low sodium level verses chronic liver disease verses pneumonia Currently alert oriented x3 ?sodium level 130 ?blood sugar ranging 98-171 ?ammonia level is normal (2) Pneumonia: ?Code(s): J18.9 - Pneumonia, unspecified organism ?Status:?Acute ?Assessment and Plan: 12/09/2023: ?likely community-acquired pneumonia verses large volume ascites ?chest x-ray showing diffuse interstitial pulmonary edema ?abdomen pelvis CT with contrast showed minimal airspace opacities of the lung bases consistent with atelectasis versus pneumonia, small pleural effusions were also noted ?currently on room air ?blood culture obtained and is pending White blood cell count 12.9 on labs today, lactic acid was 1.4 ?patient was given a dose of azithromycin, vancomycin, and cefepime while in the ED ?continue? with azithromycin and Rocephin for now Based on your medical judgement, can you further clarify in the progress notes if these findings associated with altered mental status are due to a definite or suspected underlying neurologic cause such as: Metabolic Encephalopathy Toxic Encephalopathy Altered mental status without encephalopathy Other condition (please specify) None of the above/ Not applicable <Deepa Chen RN - Last Filed: 12/10/23 11:04> Clarified Diagnosis Clarified Diagnosis: AMS likely due to chronic liver failure and hepatic encephalopathy <Concepción Giles APRN - Last Filed: 12/10/23 12:59>
[2023-12-10 12:01] LABS: Glucose Point of Care 81 mg/dl (65-105)
[2023-12-10] MEDS: cefTRIAXone 2 GM/NS 100 ML 2 GM/100 ML BAG IVPB (13:48)
[2023-12-10 14:00] VITALS: BP 105/38; PULSE 77; RESP 16; TEMP 36.4; O2SAT 100
--- NOTE | 2023-12-10 14:41 | PC.NURSE ---
pt left for paracentesis at 1430
[2023-12-10 16:17] LABS: Appearance Peritoneal Fluid Clear (Clear); Color Peritoneal Fluid Yellow (Colorless); Source Peritoneal Fluid Peritoneal Fluid
[2023-12-10 16:18] LABS: Neutrophils Peritoneal Fluid 18 % (0-25)
[2023-12-10 16:19] LABS: Lymphocytes Peritoneal Fluid 63 %
[2023-12-10 16:21] LABS: Monocytes Peritoneal Fluid 19 %
[2023-12-10 16:34] LABS: Glucose Point of Care 79 mg/dl (65-105)
[2023-12-10] MEDS: SUCRALFATE 1 GM TABLET PO ×2 (16:38→20:32)
[2023-12-10] MEDS: PRAVASTATIN SODIUM 20 MG TABLET 40 MG PO (17:13)
[2023-12-10] MEDS: CLOPIDOGREL BISULFATE 75 MG TABLET PO (17:13)
[2023-12-10] MEDS: IBUPROFEN 400 MG TABLET PO (17:16)
[2023-12-10 17:24] LABS: Magnesium 1.9 mg/dL (1.6-2.3); Potassium 3.7 mmol/L (3.4-5.0)
[2023-12-10] MEDS: AZITHROMYCIN 250 MG TABLET 500 MG PO (20:32)
[2023-12-10 20:38] VITALS: BP 114/65; PULSE 75; RESP 18; TEMP 36.3; O2SAT 100
[2023-12-10 20:50] LABS: Glucose Point of Care 113 mg/dl (65-105)
[2023-12-11 05:20] VITALS: BP 105/53; PULSE 63; RESP 16; TEMP 36.3; O2SAT 100
[2023-12-11] MEDS: SUCRALFATE 1 GM TABLET PO ×4 (05:55→20:36)
[2023-12-11 07:50] LABS: Glucose Point of Care 96 mg/dl (65-105)
[2023-12-11 08:10] LABS: Alanine Aminotransferase 23 U/L (6-50); Albumin Level 1.9 g/dL (3.5-5.1); Alkaline Phosphatase 230 U/L (38-126); Anion Gap 0 mmol/L (4-12); Aspartate Amino Transferase 35 U/L (17-59); Bilirubin,Total 0.6 mg/dL (0.2-1.3); Blood Urea Nitrogen 18 mg/dL (9-20); Calcium 8.5 mg/dL (8.4-10.2); Carbon Dioxide 26 mmol/L (22-30); Chloride 107 mmol/L (98-107); Estimated CRCL calculation 56 ml/min; Estimated Glomerular Filt Rate > 60; Glucose 83 mg/dL (65-110); Potassium 3.9 mmol/L (3.4-5.0); Sodium 133 mmol/L (137-145)
[2023-12-11] MEDS: BUMETANIDE 1 MG TABLET PO (08:55)
[2023-12-11] MEDS: LOSARTAN POTASSIUM 100 MG TABLET PO (08:56)
[2023-12-11] MEDS: PANTOPRAZOLE 40 MG TABLET PO ×2 (08:56→20:36)
[2023-12-11] MEDS: FAMOTIDINE 20 MG TABLET 40 MG PO ×2 (08:56→20:36)
[2023-12-11] MEDS: EMPAGLIFLOZIN 10 MG TABLET PO (08:56)
--- NOTE | 2023-12-11 10:28 | P.PNIM_ITS ---
Progress Note: A&P Assessment and Plan (1) AMS (altered mental status): Code(s): R41.82 - Altered mental status, unspecified Status: Acute Assessment and Plan: 12/09/2023: * altered mental status possibly due to low sodium level verses chronic liver disease * Currently alert oriented x3 * sodium level 130 * blood sugar ranging 98-171 * ammonia level is normal 12/10/23: * Altered mental status has resolved * Altered mental status likely due to hepatic encephalopathy due to chronic liver disease f/u ammonia level (2) Pneumonia: Code(s): J18.9 - Pneumonia, unspecified organism Status: Acute Assessment and Plan: 12/09/2023: * likely community-acquired pneumonia verses large volume ascites * chest x-ray showing diffuse interstitial pulmonary edema * abdomen pelvis CT with contrast showed minimal airspace opacities of the lung bases consistent with atelectasis versus pneumonia, small pleural effusions were also noted * currently on room air * blood culture obtained and is pending * White blood cell count 12.9 on labs today, lactic acid was 1.4 * patient was given a dose of azithromycin, vancomycin, and cefepime while in the ED * continue with azithromycin and Rocephin for now 12/10/23: * Continue with current treatment plan Of December 10 Chronic patient is afebrile, leukocytosis resolved. Follow-up procalcitonin Continue current antibiotics (3) Cirrhosis of liver: Code(s): K74.60 - Unspecified cirrhosis of liver Status: Acute Assessment and Plan: 12/09/2023: * history of liver cirrhosis without history of alcohol abuse * CT of the abdomen pelvis with contrast showing large volume ascites * NPO after midnight * plan for ultrasound-guided paracentesis ordered for tomorrow with appropriate labs * liver enzymes are normal, total bili is normal, ammonia level is normal 12/10/23: * Plan for ultrasound guided paracentesis today 12/10 : Peritoneal fluid yellow clear, no sign infection (4) Insulin dependent type 2 diabetes mellitus: Code(s): E11.9 - Type 2 diabetes mellitus without complications; Z79.4 - halfway (current) use of insulin Status: Chronic Assessment and Plan: 12/09/2023: * blood sugars ranging 106-147 * hemoglobin A1c last hemoglobin A1c on 10/15/2023 was 4.6 * Accu-Cheks AC and HS * Lantus and Jardiance ordered * hypoglycemic protocol in place * low-dose sliding scale insulin ordered * diabetic diet ordered 12/10/23: * Continue with current treatment plan (5) Physical deconditioning: Code(s): R53.81 - Other malaise Status: Acute Assessment and Plan: 12/09/2023: * likely secondary to chronic debilitating illness * PT and OT ordered 12/10/23: * Continue with current treatment plan (6) Chronic anticoagulation: Code(s): Z79.01 - rat exterminator (current) use of anticoagulants Status: Chronic Assessment and Plan: 12/09/2023: * Eliquis currently on hold for procedure * SCDs are ordered 12/10/23: * Continue with current treatment plan (7) Persistent atrial fibrillation: Code(s): I48.19 - Other persistent atrial fibrillation Status: Chronic Assessment and Plan: 12/09/2023: * anticoagulation on hold 12/10/23: * Continue with current treatment plan (8) Hyperlipidemia: Code(s): E78.5 - Hyperlipidemia, unspecified Status: Chronic Assessment and Plan: 12/09/2023: * lurdes
--- NOTE | 2023-12-11 10:28 | PM.IMPN ---
Progress Note: A&P Assessment and Plan (1) AMS (altered mental status): Code(s): R41.82 - Altered mental status, unspecified Status: Acute Assessment and Plan: 12/09/2023: altered mental status possibly due to low sodium level verses chronic liver disease Currently alert oriented x3 sodium level 130 blood sugar ranging 98-171 ammonia level is normal 12/10/23: Altered mental status has resolved Altered mental status likely due to hepatic encephalopathy due to chronic liver disease f/u ammonia level (2) Pneumonia: Code(s): J18.9 - Pneumonia, unspecified organism Status: Acute Assessment and Plan: 12/09/2023: likely community-acquired pneumonia verses large volume ascites chest x-ray showing diffuse interstitial pulmonary edema abdomen pelvis CT with contrast showed minimal airspace opacities of the lung bases consistent with atelectasis versus pneumonia, small pleural effusions were also noted currently on room air blood culture obtained and is pending White blood cell count 12.9 on labs today, lactic acid was 1.4 patient was given a dose of azithromycin, vancomycin, and cefepime while in the ED continue with azithromycin and Rocephin for now 12/10/23: Continue with current treatment plan Of December 10 Chronic patient is afebrile, leukocytosis resolved. Follow-up procalcitonin Continue current antibiotics (3) Cirrhosis of liver: Code(s): K74.60 - Unspecified cirrhosis of liver Status: Acute Assessment and Plan: 12/09/2023: history of liver cirrhosis without history of alcohol abuse CT of the abdomen pelvis with contrast showing large volume ascites NPO after midnight plan for ultrasound-guided paracentesis ordered for tomorrow with appropriate labs liver enzymes are normal, total bili is normal, ammonia level is normal 12/10/23: Plan for ultrasound guided paracentesis today 12/10 : Peritoneal fluid yellow clear, no sign infection (4) Insulin dependent type 2 diabetes mellitus: Code(s): E11.9 - Type 2 diabetes mellitus without complications; Z79.4 - emt intermediate (current) use of insulin Status: Chronic Assessment and Plan: 12/09/2023: blood sugars ranging 106-147 hemoglobin A1c last hemoglobin A1c on 10/15/2023 was 4.6 Accu-Cheks AC and HS Lantus and Jardiance ordered hypoglycemic protocol in place low-dose sliding scale insulin ordered diabetic diet ordered 12/10/23: Continue with current treatment plan (5) Physical deconditioning: Code(s): R53.81 - Other malaise Status: Acute Assessment and Plan: 12/09/2023: likely secondary to chronic debilitating illness PT and OT ordered 12/10/23: Continue with current treatment plan (6) Chronic anticoagulation: Code(s): Z79.01 - emt intermediate (current) use of anticoagulants Status: Chronic Assessment and Plan: 12/09/2023: Eliquis currently on hold for procedure SCDs are ordered 12/10/23: Continue with current treatment plan (7) Persistent atrial fibrillation: Code(s): I48.19 - Other persistent atrial fibrillation Status: Chronic Assessment and Plan: 12/09/2023: anticoagulation on hold 12/10/23: Continue with current treatment plan (8) Hyperlipidemia: Code(s): E78.5 - Hyperlipidemia, unspecified Status: Chronic Assessment and Plan: 12/09/2023: continue pravastatin 12/10/23: Continue with current treatment plan (9) Essential hypertension: Code(s): I10 - Essential (primary) hypertension Status: Chronic Assessment and Plan: 12/09/2023: blood pressure ranging 113/76 to 118/59 continue losartan 12/10/23: Continue with current treatment plan Subjective Date/time seen: 12/11/23 10:28 Interval history: I saw and examined patient today. Patient feels comfortable, still has general weakness, patient denies abdomen
[2023-12-11 11:22] LABS: Ammonia < 9 umol/L (9-30)
[2023-12-11 12:13] LABS: Glucose Point of Care 110 mg/dl (65-105)
[2023-12-11] MEDS: cefTRIAXone 2 GM/NS 100 ML 2 GM/100 ML BAG IVPB (13:08)
[2023-12-11 14:00] VITALS: BP 94/43; PULSE 72; RESP 18; TEMP 36.1; O2SAT 100
[2023-12-11 16:40] LABS: Glucose Point of Care 165 mg/dl (65-105)
[2023-12-11] MEDS: PRAVASTATIN SODIUM 20 MG TABLET 40 MG PO (17:17)
[2023-12-11] MEDS: CLOPIDOGREL BISULFATE 75 MG TABLET PO (17:17)
[2023-12-11 17:18] VITALS: BP 115/43
[2023-12-11] MEDS: AZITHROMYCIN 250 MG TABLET 500 MG PO (20:36)
[2023-12-11 20:49] LABS: Glucose Point of Care 146 mg/dl (65-105)
[2023-12-11 21:43] VITALS: BP 101/48; PULSE 60; RESP 14; TEMP 36.1; O2SAT 100
[2023-12-12 05:16] VITALS: BP 111/50; PULSE 85; RESP 13; TEMP 36.1; O2SAT 100
[2023-12-12] MEDS: SUCRALFATE 1 GM TABLET PO ×3 (06:00→16:13)
[2023-12-12 07:16] LABS: Alanine Aminotransferase 27 U/L (6-50); Albumin Level 2.1 g/dL (3.5-5.1); Alkaline Phosphatase 264 U/L (38-126); Anion Gap 2 mmol/L (4-12); Aspartate Amino Transferase 40 U/L (17-59); Bilirubin,Total 0.5 mg/dL (0.2-1.3); Blood Urea Nitrogen 19 mg/dL (9-20); Calcium 8.3 mg/dL (8.4-10.2); Carbon Dioxide 24 mmol/L (22-30); Chloride 105 mmol/L (98-107); Estimated CRCL calculation 51 ml/min; Estimated Glomerular Filt Rate > 60; Glucose 109 mg/dL (65-110); Potassium 3.5 mmol/L (3.4-5.0); Sodium 131 mmol/L (137-145)
[2023-12-12 07:57] LABS: Glucose Point of Care 115 mg/dl (65-105)
[2023-12-12 08:11] LABS: Procalcitonin 0.3 ng/mL
[2023-12-12] MEDS: LOSARTAN POTASSIUM 100 MG TABLET PO (08:14)
[2023-12-12] MEDS: EMPAGLIFLOZIN 10 MG TABLET PO (08:14)
[2023-12-12] MEDS: BUMETANIDE 1 MG TABLET PO (08:14)
[2023-12-12] MEDS: PANTOPRAZOLE 40 MG TABLET PO (08:14)
[2023-12-12] MEDS: FAMOTIDINE 20 MG TABLET 40 MG PO (08:14)
--- NOTE | 2023-12-12 10:46 | P.PNIM_ITS ---
Progress Note: A&P Assessment and Plan (1) AMS (altered mental status): Code(s): R41.82 - Altered mental status, unspecified Status: Acute Assessment and Plan: 12/09/2023: * altered mental status possibly due to low sodium level verses chronic liver disease * Currently alert oriented x3 * sodium level 130 * blood sugar ranging 98-171 * ammonia level is normal 12/10/23: * Altered mental status has resolved * Altered mental status likely due to hepatic encephalopathy due to chronic liver disease f/u ammonia level within normal limit (2) Pneumonia: Code(s): J18.9 - Pneumonia, unspecified organism Status: Acute Assessment and Plan: 12/09/2023: * likely community-acquired pneumonia verses large volume ascites * chest x-ray showing diffuse interstitial pulmonary edema * abdomen pelvis CT with contrast showed minimal airspace opacities of the lung bases consistent with atelectasis versus pneumonia, small pleural effusions were also noted * currently on room air * blood culture obtained and is pending * White blood cell count 12.9 on labs today, lactic acid was 1.4 * patient was given a dose of azithromycin, vancomycin, and cefepime while in the ED * continue with azithromycin and Rocephin for now 12/10/23: * Continue with current treatment plan Of December 10 Chronic patient is afebrile, leukocytosis resolved. Follow-up procalcitonin Continue current antibiotics 12/11 Changed to oral azithromycin and Augmentin p.o. on discharge (3) Cirrhosis of liver: Code(s): K74.60 - Unspecified cirrhosis of liver Status: Acute Assessment and Plan: 12/09/2023: * history of liver cirrhosis without history of alcohol abuse * CT of the abdomen pelvis with contrast showing large volume ascites * NPO after midnight * plan for ultrasound-guided paracentesis ordered for tomorrow with appropriate labs * liver enzymes are normal, total bili is normal, ammonia level is normal 12/10/23: * Plan for ultrasound guided paracentesis today 12/10 : Peritoneal fluid yellow clear, no sign infection (4) Insulin dependent type 2 diabetes mellitus: Code(s): E11.9 - Type 2 diabetes mellitus without complications; Z79.4 - alf (current) use of insulin Status: Chronic Assessment and Plan: 12/09/2023: * blood sugars ranging 106-147 * hemoglobin A1c last hemoglobin A1c on 10/15/2023 was 4.6 * Accu-Cheks AC and HS * Lantus and Jardiance ordered * hypoglycemic protocol in place * low-dose sliding scale insulin ordered * diabetic diet ordered 12/10/23: * Continue with current treatment plan * 12/11: Resume home medication on discharge (5) Physical deconditioning: Code(s): R53.81 - Other malaise Status: Acute Assessment and Plan: 12/09/2023: * likely secondary to chronic debilitating illness * PT and OT ordered 12/10/23: * Continue with current treatment plan Patient will be discharged to rehab (6) Chronic anticoagulation: Code(s): Z79.01 - termite control technician (current) use of anticoagulants Status: Chronic Assessment and Plan: 12/09/2023: * Eliquis currently on hold for procedure * SCDs are ordered 12/10/23: * Continue with current treatment plan (7) Persistent atrial fibrillation: Code(s): I48.19 - Other persistent atrial fibrillation Status: Chronic Assessment and Plan: 12/09/2023: * anticoagulation on hold 12/10/23: * Continue with cu
--- NOTE | 2023-12-12 10:46 | PM.IMPN ---
Progress Note: A&P Assessment and Plan (1) AMS (altered mental status): Code(s): R41.82 - Altered mental status, unspecified Status: Acute Assessment and Plan: 12/09/2023: altered mental status possibly due to low sodium level verses chronic liver disease Currently alert oriented x3 sodium level 130 blood sugar ranging 98-171 ammonia level is normal 12/10/23: Altered mental status has resolved Altered mental status likely due to hepatic encephalopathy due to chronic liver disease f/u ammonia level within normal limit (2) Pneumonia: Code(s): J18.9 - Pneumonia, unspecified organism Status: Acute Assessment and Plan: 12/09/2023: likely community-acquired pneumonia verses large volume ascites chest x-ray showing diffuse interstitial pulmonary edema abdomen pelvis CT with contrast showed minimal airspace opacities of the lung bases consistent with atelectasis versus pneumonia, small pleural effusions were also noted currently on room air blood culture obtained and is pending White blood cell count 12.9 on labs today, lactic acid was 1.4 patient was given a dose of azithromycin, vancomycin, and cefepime while in the ED continue with azithromycin and Rocephin for now 12/10/23: Continue with current treatment plan Of December 10 Chronic patient is afebrile, leukocytosis resolved. Follow-up procalcitonin Continue current antibiotics 12/11 Changed to oral azithromycin and Augmentin p.o. on discharge (3) Cirrhosis of liver: Code(s): K74.60 - Unspecified cirrhosis of liver Status: Acute Assessment and Plan: 12/09/2023: history of liver cirrhosis without history of alcohol abuse CT of the abdomen pelvis with contrast showing large volume ascites NPO after midnight plan for ultrasound-guided paracentesis ordered for tomorrow with appropriate labs liver enzymes are normal, total bili is normal, ammonia level is normal 12/10/23: Plan for ultrasound guided paracentesis today 12/10 : Peritoneal fluid yellow clear, no sign infection (4) Insulin dependent type 2 diabetes mellitus: Code(s): E11.9 - Type 2 diabetes mellitus without complications; Z79.4 - ocean transportation intermediary (current) use of insulin Status: Chronic Assessment and Plan: 12/09/2023: blood sugars ranging 106-147 hemoglobin A1c last hemoglobin A1c on 10/15/2023 was 4.6 Accu-Cheks AC and HS Lantus and Jardiance ordered hypoglycemic protocol in place low-dose sliding scale insulin ordered diabetic diet ordered 12/10/23: Continue with current treatment plan 12/11: Resume home medication on discharge (5) Physical deconditioning: Code(s): R53.81 - Other malaise Status: Acute Assessment and Plan: 12/09/2023: likely secondary to chronic debilitating illness PT and OT ordered 12/10/23: Continue with current treatment plan Patient will be discharged to rehab (6) Chronic anticoagulation: Code(s): Z79.01 - intermediate (current) use of anticoagulants Status: Chronic Assessment and Plan: 12/09/2023: Eliquis currently on hold for procedure SCDs are ordered 12/10/23: Continue with current treatment plan (7) Persistent atrial fibrillation: Code(s): I48.19 - Other persistent atrial fibrillation Status: Chronic Assessment and Plan: 12/09/2023: anticoagulation on hold 12/10/23: Continue with current treatment plan Resume home medication on discharge (8) Hyperlipidemia: Code(s): E78.5 - Hyperlipidemia, unspecified Status: Chronic Assessment and Plan: 12/09/2023: continue pravastatin 12/10/23: Continue with current treatment plan (9) Essential hypertension: Code(s): I10 - Essential (primary) hypertension Status: Chronic Assessment and Plan: 12/09/2023: blood pressure ranging 113/76 to 118/59 continue losartan 12/10/23: Continue w
[2023-12-12 11:25] LABS: Glucose Point of Care 137 mg/dl (65-105)
--- NOTE | 2023-12-12 12:09 | PM.DS ---
DS: Admitting Diagnosis Discharge Date 12/12/23 Admitting Diagnosis Altered mental status Pneumonia Atrial fibrillation Essential hypertension Diabetes DS: Discharge Diagnosis Discharge Diagnosis (1) AMS (altered mental status): Code(s): R41.82 - Altered mental status, unspecified Status: Acute (2) Pneumonia: Code(s): J18.9 - Pneumonia, unspecified organism Status: Acute (3) Cirrhosis of liver: Code(s): K74.60 - Unspecified cirrhosis of liver Status: Acute (4) Ascites of liver: Code(s): R18.8 - Other ascites Status: Acute (5) Hyperlipidemia: Code(s): E78.5 - Hyperlipidemia, unspecified Status: Chronic (6) Essential hypertension: Code(s): I10 - Essential (primary) hypertension Status: Chronic (7) Insulin dependent type 2 diabetes mellitus: Code(s): E11.9 - Type 2 diabetes mellitus without complications; Z79.4 - detention (current) use of insulin Status: Chronic DS: Summary Hospital Course Hospital Course: per H&P,?this is a 78-year-old male with past medical history significant for persistent atrial fibrillation, hepatic cirrhosis, chronic diarrhea, hypokalemia, insulin-dependent diabetes mellitus, diabetic peripheral neuropathy, moderate aortic stenosis,? Psoriatic disease, ? Recently discharged from [facility] had been treated for hypokalemia noted to be deconditioned and debilitated sent to? fdc/rehabilitation Patient is currently at a rehabilitation center was brought for evaluation due to altered mental status patient had called his family to inform that he was a stalk outside when in reality he was in the facility.? At the time of my visit I am unable to obtain any history from the patient who is still confused he believes is still at the rehabilitation center.? Preliminary workup here was significant for pulmonary opacities. patient has been admitted for further evaluation management and treatment. The following med issues have been addressed during hospitalization (1) AMS (altered mental status): ?Code(s): R41.82 - Altered mental status, unspecified ?Status:?Acute ?Assessment and Plan: 12/09/2023: ?altered mental status possibly due to low sodium level verses chronic liver disease Currently alert oriented x3 ?sodium level 130 ?blood sugar ranging 98-171 ?ammonia level is normal 12/10/23: Altered mental status has resolved Altered mental status likely due to hepatic encephalopathy due to chronic liver diseasef/u ammonia level within normal limit (2) Pneumonia: ?Code(s): J18.9 - Pneumonia, unspecified organism ?Status:?Acute ?Assessment and Plan: 12/09/2023: ?likely community-acquired pneumonia verses large volume ascites ?chest x-ray showing diffuse interstitial pulmonary edema ?abdomen pelvis CT with contrast showed minimal airspace opacities of the lung bases consistent with atelectasis versus pneumonia, small pleural effusions were also noted ?currently on room air ?blood culture obtained and is pending White blood cell count 12.9 on labs today, lactic acid was 1.4 ?patient was given a dose of azithromycin, vancomycin, and cefepime while in the ED ?continue? with azithromycin and Rocephin for now 12/10/23: Continue with current treatment planOf December 10 Chronic patient is afebrile, leukocytosis resolved.? Follow-up procalcitonin Continue current antibiotics 12/11 Changed to oral azithromycin and Augmentin p.o. on discharge (3) Cirrhosis of liver: ?Code(s): K74.60 - Unspecified cirrhosis of liver ?Status:?Acute ?Assessment and Plan: ?12/09/2023: ?history of liver cirrhosis without history of alcohol abuse CT of the abdomen pelvis with contrast showing large volume ascites ?NPO after midnight ? plan for ultrasound-guided paracentesis ordered for tomorrow with? appropriate labs ?liver enzymes are normal, total bili is normal, ammonia
--- NOTE | 2023-12-12 13:10 | PCOTNOTE ---
Patient scheduled to be discharged this afternoon. Patient refused to participate.
[2023-12-12 13:11] LABS: SARS-CoV-2 RNA PCR Negative (Negative)
[2023-12-12] MEDS: cefTRIAXone 2 GM/NS 100 ML 2 GM/100 ML BAG IVPB (13:40)
[2023-12-12 14:00] VITALS: BP 94/46; PULSE 57; RESP 20; TEMP 36.4; O2SAT 98
[2023-12-12 17:05] LABS: Glucose Point of Care 131 mg/dl (65-105)
[2023-12-12 17:22] LABS: Amylase Peritoneal Fluid <10 U/L
[2023-12-13 14:46] LABS: Albumin Peritoneal Fluid 0.6 g/dL
[2023-12-14 22:43] LABS: Glucose Peritoneal Fluid 91 mg/dL; LDH Peritoneal Fluid 59 U/L (<63); Total Protein Peritoneal Fluid <3.0 g/dL
== END 2023-12-12 17:25 | DRG 441 ==
LOC: ANHED 20:07 → ANH3MEDSUR 21:26
PROVIDERS: Nurse Practitioner Acute Care; Admitting Provider Internal Medicine; Emergency Provider Emergency Medicine; PCP Emergency Medicine; Visit Provider Hospitalist
DX: K72.10 Chronic hepatic failure without coma (principal); J18.9 Pneumonia, unspecified organism; E87.1 Hypo-osmolality and hyponatremia; I48.19 Other persistent atrial fibrillation; R18.8 Other ascites; I10 Essential (primary) hypertension; I35.0 Nonrheumatic aortic (valve) stenosis; I27.20 Pulmonary hypertension, unspecified; E11.42 Type 2 diabetes mellitus with diabetic polyneuropathy; K76.82 Hepatic encephalopathy; E78.5 Hyperlipidemia, unspecified; K80.20 Calculus of gallbladder without cholecystitis without obstruction; K52.9 Noninfective gastroenteritis and colitis, unspecified; K74.60 Unspecified cirrhosis of liver; L40.9 Psoriasis, unspecified; M15.9 Polyosteoarthritis, unspecified; Z79.01 Long term (current) use of anticoagulants; Z79.02 Long term (current) use of antithrombotics/antiplatelets; Z79.4 Long term (current) use of insulin; Z95.2 Presence of prosthetic heart valve; Z87.442 Personal history of urinary calculi
CPT/HCPCS: 36415; 49083; 70450; 71045; 74177; 80053; 81001; 82040; 82042; 82140; 82150; 82565; 82945; 82948; 83605; 83615; 83690; 83735; 84132; 84145; 84157; 85025; 85610; 85730; 87040; 87070; 87075; 87205; 87635; 87637; 87641; 88108; 88305; 89051; 93005; 96365; 96366; 96367; 97110; 97116; 97161; 97166; 97530; 99285; A9270; G0378; J0456; J0692; J0696; J3370; Q9967